=== PATIENT | female | born 1995 | race Caucasian/White ===

== ENCOUNTER → 2018-02-23 10:18 | Outpatient (CLI) | payer BC, SELFPAY ==
--- NOTE | 2018-02-23 10:18 | DT_ITS ---
This patient was seen during an EMR downtime February 18, 2018 - February 25, 2018. This patient may have a combination of paper and electronic documentation or all paper documentation. All documentation is viewable within the e-chart portion of [facility] for each patient visit.
--- NOTE | 2018-02-23 10:24 | US_ITS ---
STUDY: ULTRASOUND OF THE FEMALE PELVIS - COMPLETE REASON FOR EXAM: Female, 22 years old. Irregular menses LMP: 02/15/2018 TECHNIQUE: Transabdominal and Transvaginal TECHNICAL QUALITY: Adequate. COMPARISON: None. FINDINGS: The uterus is anteverted and is in a midline position. The uterus measures 6.0 x 3.3 x 2.8 cm. Normal uterine cervix. The endometrium measures 6.5 mm in thickness, and is hyperechoic. There is no demonstrated endometrial mass. There is no demonstrated myometrial mass. I.U.D. - The patient does not have an I.U.D. The right ovary is visualized. The right ovary measures 3.1 x 1.9 x 1.8 cm. There is no right ovarian cyst or ovarian mass. There is no visualized right adnexal mass or complex lesion. There is normal arterial and normal venous vascularity. The left ovary is visualized. The left ovary measures 3.4 x 2.8 x 2.0 cm. There is no left ovarian cyst or ovarian mass. There is no visualized left adnexal mass or complex lesion. There is normal arterial and normal venous vascularity. There is no fluid in the cul-de-sac. The pre void volume of the bladder was 436 ml. Polycystic ovary disease: No. US/Pelvic (Non ) IMPRESSION: Normal female pelvis. Electronically Signed: Aaron Arguello DO at 11:10 EDT , Service support ,
--- NOTE | 2018-02-23 10:24 | US_ITS ---
STUDY: ULTRASOUND OF THE FEMALE PELVIS - COMPLETE REASON FOR EXAM: Female, 22 years old. Irregular menses LMP: 02/15/2018 TECHNIQUE: Transabdominal and Transvaginal TECHNICAL QUALITY: Adequate. COMPARISON: None. FINDINGS: The uterus is anteverted and is in a midline position. The uterus measures 6.0 x 3.3 x 2.8 cm. Normal uterine cervix. The endometrium measures 6.5 mm in thickness, and is hyperechoic. There is no demonstrated endometrial mass. There is no demonstrated myometrial mass. I.U.D. - The patient does not have an I.U.D. The right ovary is visualized. The right ovary measures 3.1 x 1.9 x 1.8 cm. There is no right ovarian cyst or ovarian mass. There is no visualized right adnexal mass or complex lesion. There is normal arterial and normal venous vascularity. The left ovary is visualized. The left ovary measures 3.4 x 2.8 x 2.0 cm. There is no left ovarian cyst or ovarian mass. There is no visualized left adnexal mass or complex lesion. There is normal arterial and normal venous vascularity. There is no fluid in the cul-de-sac. The pre void volume of the bladder was 436 ml. Polycystic ovary disease: No. US/Transvaginal Non- IMPRESSION: Normal female pelvis. Electronically Signed: Aaron Arguello DO at 11:10 EDT , Service support ,
== END ==
PROVIDERS: Visit Provider Nurse Practitioner Women's Health
DX: N92.6 Irregular menstruation, unspecified (principal)
CPT/HCPCS: 76830; 76856; 93976

== ENCOUNTER → 2018-07-12 07:53 | Outpatient (CLI) | payer BC, SELFPAY ==
--- NOTE | 2018-07-12 08:01 | US_ITS ---
STUDY: SUPERFICIAL ULTRASOUND - LEFT AXILLARY REGION. REASON FOR EXAM: Female, 22 years old. Left axillary tenderness. TECHNIQUE: A superficial ultrasound was performed with real-time and static smith-scale imaging. COMPARISON: None. FINDINGS: There is a 1.3 cm x 1.4 cm x 0.5 cm well-defined hypoechoic nodule with a central echogenic hilum with blood flow. This suggestive of a lymph node. US/Ext Non Vasc Limited/Soft Tiss IMPRESSION: Findings suggestive of a 1.3 cm x 1.4 cm x 0.5 cm left axillary lymph node. Electronically Signed: Leo Eisenberg MD at 11:04 EDT Tel [phone], Service support ,
== END ==
PROVIDERS: PCP Registered Nurse
DX: R59.0 Localized enlarged lymph nodes (principal)
CPT/HCPCS: 76882

== ENCOUNTER → 2020-05-18 13:31 | Outpatient (CLI) | payer BC, SELFPAY ==
[2020-05-14 11:08] VITALS: BMI 28.8
--- NOTE | 2020-05-18 13:31 | BI_ITS ---
MAMMOGRAPHY - BILATERAL DIAGNOSTIC REASON FOR EXAM: Female, 24 years old. No abnormality in the right lower inner quadrant. PERTINENT HISTORY: Non-contributory. TECHNIQUE: Digital bilateral breast pedro pablo (3D mammographic acquisition) in the CC and MLO projections. 2-D mediolateral oblique (MLO) and craniocaudad (CC) views of both breasts were obtained. CAD: Full Field Digital Mammography with Computer Added Detection was performed. COMPARISON: None. Baseline examination. FINDINGS: Breast Composition: The breasts are heterogeneously dense, which may obscure small masses. There are no dominant masses or suspicious calcifications. No other significant abnormalities are identified. BI/DIAG MAMM W/CAD, BILAT IMPRESSION: Negative diagnostic mammogram. With the patient''s history of a palpable abnormality in the right breast, a targeted ultrasound examination is recommended. ASSESSMENT CATEGORY: BIRADS Category 0: Incomplete. Need additional imaging evaluation. A letter regarding these results will be sent to the patient by the facility within 30 days. Approximately 10% of breast cancers are not detected by mammography. A normal mammogram should not delay biopsy of a clinically suspicious abnormality. Electronically Signed: Leo Eisenberg, at 14:29 EDT , Service support ,
--- NOTE | 2020-05-18 13:31 | US_ITS ---
STUDY: ULTRASOUND BREAST - RIGHT REASON FOR EXAM: Female, 24 years old. Palpable lump in the right breast. TECHNIQUE: Axial and longitudinal images of the RIGHT breast were performed with a high resolution ultrasound transducer. # OF IMAGES: 43 COMPARISON: Comparison is made with prior mammogram done earlier today. FINDINGS: RIGHT Breast: Targeted ultrasound of the lower inner quadrant of the right breast was performed. Mildly dilated ducts. No solid or cystic nodule is seen. US/Breast Limited Unilateral IMPRESSION: Mildly dilated retroareolar ducts. No solid or cystic mass lesion is seen. ASSESSMENT CATEGORY: BIRADS Category 2: Benign. A letter regarding these results will be sent to the patient by the facility within 30 days. Electronically Signed: Leo Eisenberg, at 15:43 EDT , Service support ,
== END ==
PROVIDERS: PCP Registered Nurse; Referring Provider Obstetrics & Gynecology; Visit Provider Obstetrics & Gynecology
DX: N63.14 Unspecified lump in the right breast, lower inner quadrant (principal)
CPT/HCPCS: 76642; 77062; 77066; G0279

== ENCOUNTER → 2020-09-01 | Outpatient (CLI) | payer BC, SELFPAY ==
[2020-09-01 10:42] VITALS: BMI 24.5
[2020-09-03 13:05] LABS: HPV Reflexed? NOT INDICATED
== END | disposition home or self-care (01) ==
LOC: LABSPEC 12:09
PROVIDERS: PCP Registered Nurse; Referring Provider Nurse Practitioner Women's Health; Visit Provider Nurse Practitioner Women's Health
DX: Z12.4 Encounter for screening for malignant neoplasm of cervix (principal)
CPT/HCPCS: 88175; G0145

== ENCOUNTER → 2020-10-19 12:30 | Outpatient (CLI) | payer BC, SELFPAY ==
[2020-09-01 10:42] VITALS: BMI 24.5
[2020-10-19 14:13] LABS: Estradiol 43.5 pg/mL; Follicle Stimulating Hormone 4.4 mIU/mL; Thyroid Stim Hormone (TSH) 3.25 uIU/mL (0.358-3.74)
[2020-10-25 17:01] LABS: Anti-Mullerian Hormone,Serum 9.54 ng/mL (.)
== END ==
PROVIDERS: PCP Registered Nurse; Referring Provider Nurse Practitioner Women's Health; Visit Provider Nurse Practitioner Women's Health
DX: Z13.29 Encounter for screening for other suspected endocrine disorder (principal); N97.0 Female infertility associated with anovulation
CPT/HCPCS: 36415; 82670; 83001; 83516; 84443

== ENCOUNTER → 2020-11-06 09:49 | Outpatient (CLI) | payer BC, SELFPAY ==
[2020-09-01 10:42] VITALS: BMI 24.5
[2020-11-08 09:04] LABS: Progesterone Level 0.41 ng/mL (See Comment)
== END ==
PROVIDERS: PCP Registered Nurse; Referring Provider Nurse Practitioner Women's Health; Visit Provider Nurse Practitioner Women's Health
DX: N92.6 Irregular menstruation, unspecified (principal)
CPT/HCPCS: 36415; 84144

== ENCOUNTER → 2020-12-22 08:38 | Outpatient (CLI) | payer BC, SELFPAY ==
[2020-09-01 10:42] VITALS: BMI 24.5
[2020-12-22 10:02] LABS: Progesterone Level 28.11 ng/mL (See Comment)
== END ==
PROVIDERS: PCP Registered Nurse; Referring Provider Nurse Practitioner Women's Health; Visit Provider Nurse Practitioner Women's Health
DX: N92.6 Irregular menstruation, unspecified (principal)
CPT/HCPCS: 36415; 84144

== ENCOUNTER → 2021-05-03 12:27 | Outpatient (CLI) | payer BC, SELFPAY ==
[2021-01-26 17:34] VITALS: BMI 28.8
[2021-05-03 13:53] LABS: Progesterone Level 0.67 ng/mL (See Comment)
== END ==
PROVIDERS: PCP Registered Nurse; Referring Provider Nurse Practitioner Women's Health; Visit Provider Nurse Practitioner Women's Health
DX: N92.6 Irregular menstruation, unspecified (principal)
CPT/HCPCS: 36415; 84144

== ENCOUNTER → 2021-06-10 10:32 | Outpatient (CLI) | payer BC, SELFPAY ==
[2021-06-10 11:04] LABS: Erythrocyte Sedimentation Rate 6 mm/hr (0-30)
[2021-06-10 11:06] LABS: Absolute Lymphocyte Count 3.72 X10^3/uL (0.83-4.51); Absolute Neutrophil Count 3.6 X10^3/uL (2.0-7.7); Basophil# 0.05 X10^3/uL; Basophil% 0.6 % (0-1); Eosinophil# 0.09 X10^3/uL; Eosinophils% 1.2 % (0-5); Hematocrit 41.2 % (37-47); Hemoglobin 13.8 g/dL (12.0-15.0); Lymphocyte # 3.72 X10^3/ul (0.83-4.51); Lymphocyte % 47.6 % (19-41); Mean Corp Hgb Conc 33.5 g/dL (32-36); Mean Corpuscular Hgb 30.9 pg (27.0-32.0); Mean Corpuscular Volume 92.4 fL (81-99); Mean Platelet Vol. 8.8 fl (6.2-12.0); Monocyte# 0.39 X10^3/uL; NRBC Flagged by Analyzer 0 % (0-5); Neutrophil # 3.55 X10^3/uL (2.7-7.7); Neutrophil % 45.3 % (47-70); Platelet Count 292 K/mm3 (150-450); RBC Distribution Width CV 11.9 % (11.6-14.6); RBC Distribution Width SD 40.5 fl (35.1-43.9); Red Blood Count 4.46 M/mm3 (4.2-5.4); White Blood Count 7.8 K/mm3 (4.4-11.0)
[2021-06-10 11:46] LABS: Syphilis Antibodies Non-reactive; Vitamin B12 789 pg/mL (211-911); Vitamin D,25 Hydroxy 48.7 ng/mL
[2021-06-10 12:09] LABS: AST(SGOT) 15 U/L (15-37); Alanine Aminotransfer ALT/SGPT 18 U/L (13-56); Albumin, Serum 3.8 g/dL (3.2-5.0); Alkaline Phosphatase 43 U/L (45-117); Anion Gap 4 (5-15); BUN 16 mg/dL (7-18); BUN/Creat Ratio 20.5 RATIO (10-20); CRP < 2.90 mg/L (0.0-3.0); Calcium,Total 8.8 mg/dL (8.5-10.1); Chloride 108 mmol/L (98-107); Creatinine, Serum 0.78 mg/dL (0.55-1.02); EST Glomerular Filtration Rate 95 mL/min (>60); Est Glom Filt Rate - Afr Amer 114 mL/min (>60); Ferritin 89 ng/mL (8-252); Free T3 2.6 pg/mL (2.18-3.98); Globulin 3.9 g/dL (2.2-4.2); Glucose 83 mg/dL (74-106); Iron 116 ug/dL (50-170); Iron Binding Capacity,Total 273 ug/dL (250-450); PERCENT IRON SATURATION 42.5 % (15.0-55.0); Potassium 3.9 mmol/L (3.5-5.1); Protein, Total 7.7 g/dL (6.4-8.2); Sodium Level 139 mmol/L (136-145); Thyroid Stim Hormone (TSH) 1.77 uIU/mL (0.358-3.74)
[2021-06-12 10:34] LABS: Transferrin 227 mg/dL (192-364)
[2021-06-13 16:49] LABS: ANTINUCLEAR ANTIBODIES DIRECT Negative (Negative)
== END ==
PROVIDERS: PCP Registered Nurse; Visit Provider Registered Nurse
DX: R23.3 Spontaneous ecchymoses (principal); R53.83 Other fatigue; R41.89 Other symptoms and signs involving cognitive functions and awareness; M79.10 Myalgia, unspecified site
CPT/HCPCS: 80053; 82306; 82607; 82728; 82746; 83540; 83550; 84439; 84443; 84466; 84481; 85025; 85652; 86038; 86140; 86780

== ENCOUNTER → 2021-06-13 17:26 | Outpatient (CLI) | payer BC, SELFPAY | PROVIDERS: PCP Registered Nurse; Referring Provider Registered Nurse; Visit Provider Registered Nurse | DX: Z13.0 Encounter for screening for diseases of the blood and blood-forming organs and certain disorders involving the immune mechanism (principal); Z83.2 Family history of diseases of the blood and blood-forming organs and certain disorders involving the immune mechanism | CPT/HCPCS: 36415; 81241 ==

== ENCOUNTER → 2021-09-05 13:25 | Outpatient (CLI) | payer BC, SELFPAY ==
[2021-09-05 14:12] LABS: Progesterone Level 0.77 ng/mL (See Comment)
== END ==
PROVIDERS: PCP Registered Nurse; Visit Provider Nurse Practitioner Women's Health
DX: N92.6 Irregular menstruation, unspecified (principal)
CPT/HCPCS: 36415; 84144

== ENCOUNTER 2021-12-26 06:56 | Outpatient (CLI) | payer BC, SELFPAY ==
[2021-12-26 07:52] LABS: Glucose 75GTT - Fasting 93 mg/dL (70-99)
[2021-12-26 08:12] LABS: Cholesterol 208 mg/dL (200); High Density Lipoprotein 56 mg/dL; Prolactin 25.1 ng/mL; Thyroid Stim Hormone (TSH) 3.13 uIU/mL (0.358-3.74); Triglycerides 89 mg/dL; Very Low Density Lipoprotein 18 mg/dL (5-40)
[2021-12-26 09:19] LABS: Glucose 75GTT - 60 minutes 68 mg/dL (100-160)
[2021-12-26 09:22] LABS: HIV - WCH Non-Reactive (Nonreactive); Hepatitis B Surface Antigen Non-Reactive (Nonreactive); Hepatitis C Antibody Non-Reactive (Nonreactive); Rubella IgG Reactive (Nonreactive); Syphilis Antibodies Non-reactive
[2021-12-26 09:27] LABS: Glucose 75GTT - 30 minutes 142 mg/dL (100-160)
[2021-12-26 09:44] LABS: Glucose 75GTT - 120 minutes 62 mg/dL (70-140)
[2021-12-26 12:27] LABS: Chlamydia Trachomatis by PCR Negative (Negative); Neisserai gonorrhoeae by PCR Negative (Negative); Probe Check PASS; Sample Adequacy Control PASS; Specimen Processing Control PASS
[2021-12-27 15:28] LABS: V-Zoster IgG (Immunity) 449 index (Immune >165)
[2022-01-01 15:51] LABS: 17-Hydroxyprogesterone 64 ng/dL (.)
== END 2021-12-26 23:59 | disposition home or self-care (01) ==
LOC: LAB 06:56
PROVIDERS: PCP Registered Nurse; Visit Provider Obstetrics & Gynecology Reproductive Endocrinology
DX: Z01.83 Encounter for blood typing (principal); Z11.3 Encounter for screening for infections with a predominantly sexual mode of transmission; Z11.59 Encounter for screening for other viral diseases; Z11.8 Encounter for screening for other infectious and parasitic diseases; Z13.228 Encounter for screening for other metabolic disorders; E16.8 Other specified disorders of pancreatic internal secretion; E02 Subclinical iodine-deficiency hypothyroidism
CPT/HCPCS: 36415; 80061; 82627; 82951; 82952; 83498; 84146; 84403; 84443; 86703; 86762; 86780; 86787; 86803; 86850; 86900; 86901; 87340; 87491; 87591; 82626

== ENCOUNTER → 2022-01-05 | Outpatient (CLI) | payer BC, SELFPAY ==
[2022-01-05 13:20] LABS: T4 Free Direct 1.04 ng/dL (0.76-1.46); Thyroid Stim Hormone (TSH) 2.08 uIU/mL (0.358-3.74)
[2022-01-09 22:06] LABS: Thyroid Peroxidase AB < 8 IU/mL (0-34)
[2022-01-09 22:11] LABS: Thyroglobulin Antibody < 1.0 IU/mL (0.0-0.9)
== END | disposition home or self-care (01) ==
LOC: LAB 12:21
PROVIDERS: PCP Registered Nurse; Referring Provider Obstetrics & Gynecology Reproductive Endocrinology; Visit Provider Obstetrics & Gynecology Reproductive Endocrinology
DX: E02 Subclinical iodine-deficiency hypothyroidism (principal)
CPT/HCPCS: 36415; 84439; 84443; 86376; 86800

== ENCOUNTER → 2022-07-03 | Outpatient (CLI) | payer BC, SELFPAY ==
[2022-07-03 14:28] LABS: hCG Titer Quant., Serum < 1 mIU/mL (1-3)
== END | disposition home or self-care (01) ==
LOC: LAB 13:46
PROVIDERS: PCP Registered Nurse; Visit Provider Nurse Practitioner Women's Health
DX: N92.6 Irregular menstruation, unspecified (principal)
CPT/HCPCS: 36415; 84702

== ENCOUNTER → 2022-11-06 | Outpatient (CLI) | payer BC, SELFPAY ==
[2022-11-06 15:04] LABS: hCG Titer Quant., Serum < 1 mIU/mL (1-3)
== END | disposition home or self-care (01) ==
PROVIDERS: PCP Registered Nurse; Referring Provider Nurse Practitioner Women's Health; Visit Provider Nurse Practitioner Women's Health
DX: N91.2 Amenorrhea, unspecified (principal)
CPT/HCPCS: 36415; 84702

== ENCOUNTER → 2023-12-31 | Outpatient (CLI) | payer BC, SELFPAY | END | disposition home or self-care (01) | LOC: LAB.FUTURE 14:14 | PROVIDERS: PCP Registered Nurse; Referring Provider Registered Nurse; Visit Provider Registered Nurse | DX: B00.1 Herpesviral vesicular dermatitis (principal); F33.1 Major depressive disorder, recurrent, moderate; F41.9 Anxiety disorder, unspecified; K58.2 Mixed irritable bowel syndrome; Z13.1 Encounter for screening for diabetes mellitus; Z13.220 Encounter for screening for lipoid disorders ==

== ENCOUNTER → 2024-01-10 | Outpatient (CLI) | payer BC, SELFPAY ==
[2024-01-15 19:45] LABS: HPV Reflexed? NOT INDICATED
== END | disposition home or self-care (01) ==
PROVIDERS: PCP Registered Nurse; Visit Provider Nurse Practitioner Women's Health
DX: Z12.4 Encounter for screening for malignant neoplasm of cervix (principal)
CPT/HCPCS: 88175; G0145

== ENCOUNTER → 2024-08-18 | Outpatient (CLI) | payer BC, SELFPAY ==
--- NOTE | 2024-08-18 11:00 | US_ITS ---
EXAM: US Abdomen Limited (quadrant) HISTORY: LEFET UPPER QUADANT ABDOMINAL PAIN COMPARISON: None FINDINGS: Limited sonographic evaluation of the left upper quadrant shows a normal-appearing spleen measuring 9.6 cm. 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 Left kidney is free of obstructive uropathy, measuring 10.8 cm. US/Abdomen Limited IMPRESSION: Sonographically normal spleen and left kidney Electronically Signed: Gerry Coates MD at 12:36 EST ,
== END | disposition home or self-care (01) ==
PROVIDERS: PCP Registered Nurse; Referring Provider Nurse Practitioner Family; Visit Provider Nurse Practitioner Family
DX: R10.12 Left upper quadrant pain (principal)
CPT/HCPCS: 76705

== ENCOUNTER → 2024-11-12 | Outpatient (CLI) | payer BC, SELFPAY ==
[2024-11-12 17:48] LABS: hCG Titer Quant., Serum < 1 mIU/mL (<9 non-preg)
== END | disposition home or self-care (01) ==
PROVIDERS: PCP Registered Nurse; Referring Provider Nurse Practitioner Women's Health; Visit Provider Nurse Practitioner Women's Health
DX: N91.2 Amenorrhea, unspecified (principal)
CPT/HCPCS: 36415; 84702

== ENCOUNTER → 2024-12-01 | Outpatient (CLI) | payer BC, SELFPAY ==
[2024-12-01 18:04] LABS: Hematocrit 42.5 % (37-47); Hemoglobin 14.3 g/dL (12.0-15.0); Mean Corp Hgb Conc 33.6 g/dL (32-36); Mean Corpuscular Hgb 30.4 pg (27.0-32.0); Mean Corpuscular Volume 90.4 fL (81-99); Mean Platelet Vol. 8.6 fl (6.2-12.0); Platelet Count 341 K/mm3 (150-450); RBC Distribution Width CV 12.3 % (11.6-14.6); RBC Distribution Width SD 40.4 fl (35.1-43.9); White Blood Count 8.8 K/mm3 (4.4-11.0)
[2024-12-01 21:41] LABS: ALB/GLOB Ratio 1.5 RATIO (0.9-2.4); AST(SGOT) 23 U/L (<=31); Alanine Aminotransfer ALT/SGPT 18 U/L (<=34); Albumin, Serum 4.8 g/dL (3.5-5.0); Alkaline Phosphatase 55 U/L (35-104); Anion Gap 15 (5-15); BUN 12 mg/dL (4-19); BUN/Creat Ratio 13.7 RATIO (10-20); Calcium,Total 9.6 mg/dL (7.6-11.0); Carbon Dioxide 21.8 mmol/L (21.0-32.0); Chloride 102 mmol/L (98-108); Cholesterol 213 mg/dL (<=200); Creatinine, Serum 0.89 mg/dL (0.70-1.20); EST Glomerular Filtration Rate 89 (>60); Globulin 3.1 g/dL (2.2-4.2); Glucose 87 mg/dL (70-99); High Density Lipoprotein 54 mg/dL; Low Density Lipoprotein Calc. 144 mg/dL; Potassium 4.3 mmol/L (3.3-5.1); Protein, Total 7.9 g/dL (5.9-8.4); Sodium Level 139 mmol/L (133-145); Total Bilirubin 0.66 mg/dL (0.00-1.30); Triglycerides 78 mg/dL; Very Low Density Lipoprotein 16 mg/dL (5-40); cholesterol:hdl ratio screen 3.97
== END | disposition home or self-care (01) ==
LOC: LAB 17:38
PROVIDERS: PCP Registered Nurse; Referring Provider Registered Nurse; Visit Provider Registered Nurse
DX: Z13.220 Encounter for screening for lipoid disorders (principal); Z13.1 Encounter for screening for diabetes mellitus; Z13.0 Encounter for screening for diseases of the blood and blood-forming organs and certain disorders involving the immune mechanism; B00.1 Herpesviral vesicular dermatitis; F41.9 Anxiety disorder, unspecified; F32.A Depression, unspecified; K58.2 Mixed irritable bowel syndrome; J45.990 Exercise induced bronchospasm
CPT/HCPCS: 36415; 80053; 80061; 85027

== ENCOUNTER → 2025-01-28 | Outpatient (CLI) | payer BC, SELFPAY ==
--- NOTE | 2025-01-28 09:01 | US_ITS ---
PROCEDURE: PELVIC W/ TRANSVAGINAL 01/28/2025 REASON FOR EXAM: PAIN TECHNIQUE: Transabdominal and transvaginal pelvic ultrasound FINDINGS: Transabdominal and transvaginal imaging. The uterus measures 9.4 x 5.1 x 3.6 cm and appears within limits. Homogeneous trilaminar appearing endometrium appears prominent at 1.5 cm, correlate with menstrual cycle. Cervix appears within limits. Right ovary measures 4.5 x 2.6 x 2.5 cm and appears within limits. Left ovary measures 2.9 x 2.9 x 1.8 cm and appears within limits containing small follicles. No evidence of adnexal mass. Evidence of bilateral vascular ovarian flow is seen. No free fluid. Bladder volume 85 cc. US/Pelvic w/ Transvaginal IMPRESSION: Homogeneous trilaminar appearing endometrium appears prominent at 1.5 cm, corre late with menstrual cycle. Reading Location: [id number]
== END | disposition home or self-care (01) ==
LOC: OPUS 09:00
PROVIDERS: PCP Registered Nurse; Referring Provider Nurse Practitioner Women's Health; Visit Provider Nurse Practitioner Women's Health
DX: R10.2 Pelvic and perineal pain (principal)
CPT/HCPCS: 76830; 76856

== ENCOUNTER 2025-04-30 11:44 | Emergency (ER) | payer BC, SELFPAY ==
[2025-04-30 11:45] VITALS: BP 144/104; PULSE 107; RESP 18; TEMP 36.6; O2SAT 100; BMI 27.8
--- NOTE | 2025-04-30 11:59 | EDS_ITS ---
HPI <HOSEA Mi - Last Filed: 04/30/25 17:18> History of Present Illness Chief Complaint: Chest Pain Narrative Narrative: 29-year-old female with no significant past medical history presents with chest pain. She works at [employer] and states around 10 AM she was at work and developed tightness in the center of her chest. The pain is around 3 out of 10 and is unchanging. She also feels slightly short of breath. No nausea, vomiting, or diaphoresis. No jaw or upper extremity pain. No history of similar symptoms. She has no personal history of CAD or DVT/PE. She states she has a strong paternal history of [place] in her dad and grandfather. She reports driving to [place] a little less than a month ago. No leg pain or swelling. She does not smoke. [facility] <HOSEA Mi - Last Filed: 04/30/25 17:18> [facility] Medical History COVID-19 Migraines Asthma Home Medications ?Medication ?Instructions ?Recorded ?Last Taken ?Type valacyclovir 1 gram tablet PO PRN 3 days #12 tabs 12/0 01/03 Unknown History albuterol sulfate 90 mcg/actuation 1 inh inhalation ON CE 05/14/20 Unknown History aerosol inhaler (ProAir HFA) docosahexaenoic acid 200 mg mg PO 09/01/20 Unknown His tory capsule ( DHA) Allergy/AdvReac Type Severity Reaction Status Date / Time No Known Allergies Allergy Verified 04/30/25 11:47 Family History Grandmother Cancer ovarian cancer - paternal grandmother Grandfather Myocardial infarction Father Myocardial infarction Grandfather Diabetes Social History Smoking Status: Never smoker alcohol intake: current Alcohol type: wine substance use type: does not use caffeine: Yes what type of physical activity do you participate in: none seatbelt use: always do you feel safe at home: Yes 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 CVS: Positive for chest pain. No palpitations or syncope. Respiratory: Negative for cough. GI: Negative for abdominal pain, nausea, vomiting. EXAM <HOSEA Mi - Last Filed: 04/30/25 17:18> Physical Exam Narrative Exam Narrative: CONST: Patient sitting in no acute distress. EYES: Normal inspection. NECK: Normal inspection. RESP: No respiratory distress, CTAB. CVS: Regular rate and rhythm, no murmur, no gallop. ABD: Soft and nontender, no guarding or rebound, nondistended. SKIN: Color normal, no rash, warm, dry, intact. EXTREMITIES: Normal appearance, no pedal edema. NEURO: Alert and answering questions appropriately. PSYCH: Normal affect. Const Vital Signs: 04/30/25 11:45 04/30/25 12:44 04/30/25 13:00 Temperature 98 F Temperature Source Oral Pulse Rate 107 H 76 76 Respiratory Rate 18 14 14 Respiratory Effort Blood Pressure 144/104 H 127/87 H 127/87 H Blood Pressure Mean 117 100 100 Pulse Ox 100 100 100 Oxygen Delivery Method Room Air 04/30/25 13:13 04/30/25 14:00 04/30/25 15:00 Temperature Temperature Source Pulse Rate 81 71 Respiratory Rate Respiratory Effort Normal Non-Labored Blood Pressure 108/84 H 115/87 H Blood Pressure Mean 92 96 Pulse Ox 99 100 Oxygen Delivery Method Room Air Room Air 04/30/25 15:15 Temperature 98 F Temperature Source Pulse Rate 71 Respiratory Rate 14 Respiratory Effort Blood Pressure 115/87 H Blood Pressure Mean 96 Pulse Ox 100 Oxygen Delivery Method <Dr. Doug Abrams MD - Last Filed: 05/01/25 07:14> Physical Exam Const Vital Signs: 04/30/25 11:45 04/30/25 12:44 04/30/25 13:00 Temperature 98 F Temperature Source Oral Pulse Rate 107 H 76 76 Respiratory Rate 18 14 14 Respiratory Effort Blood Pressure 144/104 H 127/87 H 127/87 H Blood Pressure Mean 117 100 100 Pulse Ox 100 100 100 Oxygen Delivery Method Room Air 04/30/25 13:13 04/30/25 14:00 04/30/25 15:00 Temperature Temperature Source Pulse Rate 81 71 Respiratory Rate Respiratory Effort Normal Non-Labored Blood Pressure 108/84 H 115/87 H Blood Pressure Mean 92 96 Pulse Ox 99 100 Oxygen Delivery Method Room Air Room Air 04/30/25 15:15 Temperature 98 F Temperature Source Pulse Rate 71 Respiratory Rate 14 Respiratory Effort Blood Pressure 115/87 H Blood Pressure Mean 96 Pulse Ox 100 Oxygen Delivery Method <HOSEA Mi - Last Filed: 04/30/25 17:18> Heart Score History: Slightly/Non-Suspicious ECG: Normal Age: </= 45 years Risk Factors: 1 or 2 Risk Factors Troponin: </= Normal Limit Score: 1 <Dr. Doug Abrams MD - Last Filed: 05/01/25 07:14> Heart Score Score: 1 MDM <HOSEA Mi - Last Filed: 04/30/25 17:18> MDM MDM Narrative Medical decision making narrative: 29-year-old female developed midsternal chest tightness at work this morning. It is mild but constant. She is awake alert no distress. Vitals are stable with slight tachycardia at 107 bpm. Normal cardiopulmonary exam. She has no tenderness over the chest wall or abdomen. Moving all extremities and neurovascularly intact. EKG is sinus rhythm without ischemic changes and troponin x 2 negative. Basic labs unremarkable. Since she had recent travel to [place] D-dimer was ordered and is elevated but follow-up CTA shows no acute findings. I am not sure the etiology of her symptoms but she is low risk with heart score of 1. I recommended follow-up with her PCP or return if symptoms worsen. She was discharged in stable condition. I have personally performed a face to face assessment of the patient and have reviewed the GIOVANNY Note. I performed a substantive portion of the visit including all aspects of the following. My rocha findings include: History is remarkable for patient being foggy. When asked what she means by vineet feels like her head is swimming. It appears to be positional. She also complains of lightheadedness. She and her have been trying to get . She performed a test 2 weeks ago which was negative. She presented because of chest pain and shortness of breath. She had a recent long distance trip. She denies leg pain, swelling discoloration. She denies black or maroon-colored stool. She denies fever, chills night sweats. She has had no weight gain or weight loss. She has had no constipation or diarrhea. She has no intolerance to heat or cold. She does endorse frequent urination. There is a strong family history of diabetes. Exam is remarked for an elevated blood pressure and heart rate. HEENT is grossly unremarkable. Lungs are clear station. Heart is regular. Rate is normal. There is no murmur, gallop or rub. Abdomen is soft nontender. There is no palpable skull mass. Lower extremity exam reveals no abnormality. There is no asymmetry, swelling, discoloration, leg vein distention, palpable cords or tenderness along the distribution of the deep venous system. Medical Decision Making will obtain D-dimer since patient is not PERC negative. If D-dimer is positive she will need a CTA. With her having family history of diabetes frequent urination will obtain BGT to assess glucose. Will obtain test to rule out . Troponin was obtained since her family history of coronary disease. Other additions or changes: [None] History & Record Review Discussion w/independent historian: Patient Lab Data Attestation: I reviewed the patient's lab results. Labs: Laboratory Results - last 24 hr 04/30/25 04/30/25 12:37 14:20 WBC 10.5 RBC 5.04 Hgb 15.3 H Hct 45.6 MCV 90.5 MCH 30.4 MCHC 33.6 RDW Std Deviation 41.8 RDW Coeff of Joy 12.6 Plt Count 383 MPV 8.5 Immature Gran % (Auto) 0.400 Neut % (Auto) 62.7 Lymph % (Auto) 32.4 Baldwin % (Auto) 3.6 Eos % (Auto) 0.4 Baso % (Auto) 0.5 Absolute Neuts (auto) 6.6 Absolute Lymphs (auto) 3.41 Nucleated RBC % 0 D-Dimer Quant (PE/DVT) 1.07 H* Sodium 141 Potassium 4.2 Chloride 103 Carbon Dioxide 23.2 Anion Gap 14 BUN 13 Creatinine 0.92 Estim Creat Clear Calc 81.36 Est GFR (MDRD) Non-Af 86 BUN/Creatinine Ratio 13.8 Glucose 81 Calcium 9.8 Troponin T High Sens < 6 Troponin T Hi Sens 2 Hr < 6 Serum , Qual NEGATIVE Radiography Diagnostic Testing: Clinical Impression(s) from Imaging Studies Chest X-Ray 04/30/25 12:45 IMPRESSION: NEGATIVE CHEST Reading Location: [facility] Chest CTA 04/30/25 13:23 IMPRESSION: No acute or chronic pulmonary embolus. No acute aortic syndrome Reading Location: [id number] ED attending interpretation of two-view chest x-ray shows normal heart size, no acute infiltrate, edema, or effusion. EKG Initial EKG: Attestation: I personally reviewed and interpreted this EKG as follows: Interpretation: No Acute Injury Pattern and Sinus Arrythmia Comments: Normal sinus rhythm with sinus arrhythmia at 95 bpm Normal intervals, no acute ischemic changes <Dr. Doug Abrams MD - Last Filed: 05/01/25 07:14> [facility] MDM Narrative Medical decision making narrative: I have personally performed a face to face assessment of the patient and have reviewed the GIOVANNY Note. I performed a substantive portion of the visit including all aspects of the following. My rocha findings include: History is remarkable for patient being foggy. When asked what she means by vineet feels like her head is swimming. It appears to be positional. She also complains of lightheadedness. She and her have been trying to get . She performed a test 2 weeks ago which was negative. She presented because of chest pain and shortness of breath. She had a recent long distance trip. She denies leg pain, swelling discoloration. She denies black or maroon-colored stool. She denies fever, chills night sweats. She has had no weight gain or weight loss. She has had no constipation or diarrhea. She has no intolerance to heat or cold. She does endorse frequent urination. There is a strong family history of diabetes. Exam is remarked for an elevated blood pressure and heart rate. HEENT is grossly unremarkable. Lungs are clear station. Heart is regular. Rate is normal. There is no murmur, gallop or rub. Abdomen is soft nontender. There is no palpable skull mass. Lower extremity exam reveals no abnormality. There is no asymmetry, swelling, discoloration, leg vein distention, palpable cords or tenderness along the distribution of the deep venous system. Medical Decision Making will obtain D-dimer since patient is not PERC negative. If D-dimer is positive she will need a CTA. With her having family history of diabetes frequent urination will obtain BGT to assess glucose. Will obtain test to rule out . Troponin was obtained since her family history of coronary disease. Other additions or changes: [None] Lab Data Labs: Laboratory Results - last 24 hr 04/30/25 04/30/25 12:37 14:20 WBC 10.5 RBC 5.04 Hgb 15.3 H Hct 45.6 MCV 90.5 MCH 30.4 MCHC 33.6 RDW Std Deviation 41.8 RDW Coeff of Joy 12.6 Plt Count 383 MPV 8.5 Immature Gran % (Auto) 0.400 Neut % (Auto) 62.7 Lymph % (Auto) 32.4 Baldwin % (Auto) 3.6 Eos % (Auto) 0.4 Baso % (Auto) 0.5 Absolute Neuts (auto) 6.6 Absolute Lymphs (auto) 3.41 Nucleated RBC % 0 D-Dimer Quant (PE/DVT) 1.07 H* Sodium 141 Potassium 4.2 Chloride 103 Carbon Dioxide 23.2 Anion Gap 14 BUN 13 Creatinine 0.92 Estim Creat Clear Calc 81.36 Est GFR (MDRD) Non-Af 86 BUN/Creatinine Ratio 13.8 Glucose 81 Calcium 9.8 Troponin T High Sens < 6 Troponin T Hi Sens 2 Hr < 6 Serum , Qual NEGATIVE Radiography Diagnostic Testing: Clinical Impression(s) from Imaging Studies Chest X-Ray 04/30/25 12:45 IMPRESSION: NEGATIVE CHEST Reading Location: [facility] Chest CTA 04/30/25 13:23 IMPRESSION: No acute or chronic pulmonary embolus. No acute aortic syndrome Reading Location: [id number] Discharge Plan Triage Chief Complaint: Chest Pain ED Midlevel Provider: Roma Ceja ED Provider: Doug Abrams Dx/Rx/DC Orders Clinical Impression: Chest pain, Elevated d-dimer, Sinus tachycardia seen on potline monitor Instructions: ED Chest Pain, Noncardiac Prescriptions: No Action valacyclovir 1 gram tablet PO PRN3 Days Qty: 12 albuterol sulfate [ProAir HFA] 90 mcg/actuation HFA aerosol inhaler 1 inh INHALATION ONCE DHA 200 mg capsule PO Primary Care Provider: Phoebe Eastman NP Referrals: Phoebe Eastman NP, IT SENIOR ANALYST-C [Primary Care Provider] - Activity Restrictions/Additional Instructions: I am not sure what is causing your chest pain. Your testing is normal and rule out heart attacks or blood clots. I recommend you follow-up with your primary care doctor. If you have new or worsening symptoms come back to the ER. Print Language: Italian Disposition Disposition: Home, Self Care Discharge Date/Time: 04/30/25 15:19
[2025-04-30 12:44] VITALS: BP 127/87; PULSE 76; RESP 14; O2SAT 100
--- NOTE | 2025-04-30 12:45 | RAD_ITS ---
PROCEDURE: CHEST PA AND LATERAL 04/30/2025 REASON FOR EXAM: CHEST PAIN TECHNIQUE: CHEST PA AND LATERAL COMPARISON: None FINDINGS: Hardware: EKG electrodes are seen. Heart: The heart size is normal. Mediastinum: The mediastinal contour is unremarkable. Lungs: The lungs are clear. Bones: The bones are unremarkable. RAD/Chest PA and Lateral IMPRESSION: NEGATIVE CHEST Reading Location: [facility]
[2025-04-30 12:47] LABS: Hematocrit 45.6 % (37-47); Hemoglobin 15.3 g/dL (12.0-15.0); Immature Granulocytes Count 0.040 X10^3/uL (0.0-0.0); Mean Corp Hgb Conc 33.6 g/dL (32-36); Mean Corpuscular Volume 90.5 fL (81-99); Mean Platelet Vol. 8.5 fl (6.2-12.0); NRBC Flagged by Analyzer 0 % (0-5); Platelet Count 383 K/mm3 (150-450); RBC Distribution Width CV 12.6 % (11.6-14.6); RBC Distribution Width SD 41.8 fl (35.1-43.9); Red Blood Count 5.04 M/mm3 (4.2-5.4); White Blood Count 10.5 K/mm3 (4.4-11.0)
[2025-04-30 13:00] VITALS: BP 127/87; PULSE 76; RESP 14; O2SAT 100
[2025-04-30 13:12] LABS: D-Dimer Quantitative (DVT/PE) 1.07 FEU/ug/m (0.27-0.49)
[2025-04-30 13:22] LABS: Internal QC Validated? YES +Cl - CLEAR BKGD; Pregnancy, Serum, hCG Quali. NEGATIVE Negative; Record Kit Lot#, Serum Preg. 962302
--- NOTE | 2025-04-30 13:23 | CT_ITS ---
PROCEDURE: CTA CHEST W/WO CONTRAST 04/30/2025 REASON FOR EXAM: CHEST PAIN TO RULE OUT PE TECHNIQUE: CTA CHEST W/WO CONTRAST Multiplanar Sagittal and Coronal images were obtained. 3D post processing was performed CONTRAST: Isovue 370 VOLUME: 99 mL One or more dose reduction techniques were used (e.g., Automated exposure control, adjustment of the mA and/or kV according to patient size, use of iterative reconstruction technique). RADIATION DOSE SUMMARY: CTDlvol: 13 mGy DLP: 362 mGycm COMPARISON: April 30, 2025 # of known CTs in the past 12 months: 0 # of known Cardiac Nuclear Medicine Studies in the past 12 months: 0 FINDINGS: Thoracic Aorta: No evidence of aortic dissection or rupture. No aneurysm. Heart: Normal size. No pericardial effusion. Pulmonary Vessels: The timing and quality of the contrast bolus is diagnostic. There is no evidence of acute or chronic pulmonary embolus. Hardware: Unremarkable Lymph nodes: None appear enlarged. Lungs and Airways: Respiratory motion artifact. No consolidation, mass or worrisome nodule. Pleura: No pleural effusion or pneumothorax. Upper Abdomen: Normal Bones: Straightening of the thoracic kyphosis. CT/CTA Chest W/WO Contrast IMPRESSION: No acute or chronic pulmonary embolus. No acute aortic syndrome Reading Location: [id number]
[2025-04-30 13:30] LABS: Anion Gap 14 (5-15); BUN 13 mg/dL (4-19); BUN/Creat Ratio 13.8 RATIO (10-20); Calcium,Total 9.8 mg/dL (7.6-11.0); Carbon Dioxide 23.2 mmol/L (21.0-32.0); Chloride 103 mmol/L (98-108); Estimated Creatinine Clearance 81.36 ml/min (50-250); Glucose 81 mg/dL (70-99); Potassium 4.2 mmol/L (3.3-5.1); Troponin T High Sensitivity < 6 ng/L (<=14)
[2025-04-30 14:00] VITALS: BP 108/84; PULSE 81; O2SAT 99
[2025-04-30 15:00] VITALS: BP 115/87; PULSE 71; O2SAT 100
[2025-04-30 15:02] LABS: Troponin T High Sens 2 HR < 6 ng/L (<=14)
[2025-04-30 15:15] VITALS: BP 115/87; PULSE 71; RESP 14; TEMP 36.6; O2SAT 100
== END 2025-04-30 15:19 | disposition home or self-care (01) ==
PROVIDERS: Physician Assistant; Emergency Provider Emergency Medicine; PCP Registered Nurse; Referring Provider Emergency Medicine; Visit Provider Emergency Medicine
DX: R07.9 Chest pain, unspecified (principal); R79.89 Other specified abnormal findings of blood chemistry; R00.0 Tachycardia, unspecified
CPT/HCPCS: 71046; 71275; 80048; 84484; 84703; 85025; 85379; 93005; 99282; Q9967; A4216

== ENCOUNTER → 2025-06-06 | Outpatient (CLI) | payer BC, SELFPAY ==
--- OUTSIDE RECORDS SUMMARY | 2025-06-06 08:31 | XMS RPT_ITS | CCD ---
Author Organization [facility] Care Team Providers Care Color Television Console Monitor Name Role Phone PROVIDER, UNKNOWN Unavailable Unavailable PROVIDER, UNKNOWN Unavailable Unavailable PROVIDER, UNKNOWN Unavailable Unavailable Mark Nuñez Unavailable Unavailable PROVIDER, UNKNOWN Unavailable Unavailable PROVIDER, UNKNOWN Unavailable Unavailable Jaren REGISTRY NURSE, REGISTRY NURSE-C Rachana Primary Care Provider Jaren REGISTRY NURSE, REGISTRY NURSE-C Rachana Referring Provider [phone] Nilson REGISTRY NURSE, REGISTRY NURSE-C Kathrin Attending Provider Dr. Mike Ortiz Attending Provider Jaren REGISTRY NURSE, REGISTRY NURSE-C Rachana Primary Care Provider [phone] Jaren REGISTRY NURSE, REGISTRY NURSE-C Rachana Referring Provider [phone] HOSEA Jiang Attending Provider Mariano AVILES, Mark Evans Primary Care Provider Mariano AVILES, Mark Evans Primary Care Provider Jaren REGISTRY NURSE, REGISTRY NURSE-C Rachana Primary Care Provider Jaren REGISTRY NURSE, REGISTRY NURSE-C Rachana Referring Provider Nilson REGISTRY NURSE, REGISTRY NURSE-C Kathrin Attending Provider [phone] Jaren REGISTRY NURSE-C, Rachana Primary Care Provider Bridbrandeeal REGISTRY NURSE-C, Deyanira Attending Provider [phone] Samiral REGISTRY NURSE-C, Deyanira Referring Provider [phone] Nilson REGISTRY NURSE-C, Kathrin Attending Provider Nilson REGISTRY NURSE-C, Kathrin Referring Provider Jaren REGISTRY NURSE-C, Rachana Attending Provider Jaren REGISTRY NURSE-C, Rachana Referring Provider [phone] BRIDENTHAL, DEYANIRA Attending Unavailable MARIANOMARK TELLEZ Primary Care Unavailable JAREN, RACHANA Attending Unavailable MARIANO MARK Primary Care Unavailable Jaren REGISTRY NURSE-C, [place] Primary Care Provider Jaren REGISTRY NURSE-C, Rachana Referring Provider Nilson REGISTRY NURSE-C, Kathrin Attending Provider [place] REGISTRY NURSE-C, Kathrin Referring Provider Jaren REGISTRY NURSE-C, Rachana Primary Care Provider Jose Alberto AVILES, Dr. Camacho Referring Provider [phone] Jose Alberto AVILES, Dr. Camacho Emergency Provider Bridenthal, Deyanira Referring Unavailable Jaren REGISTRY NURSE, Rachana Primary Care Unavailable Bridenthal, Deyanira Attending Unavailable Nilson REGISTRY NURSE, Kathrin Attending Unavailable Jaren REGISTRY NURSE, [place] Primary Care Unavailable Jaren REGISTRY NURSE, Rachana Referring Unavailable Jaren REGISTRY NURSE, [place] Primary Care Unavailable Jaren REGISTRY NURSE, Rachana Attending Unavailable Jaren REGISTRY NURSE, Rachana Referring Unavailable [place] REGISTRY NURSE, Kathrin Attending Unavailable Nilson REGISTRY NURSE, Kathrin Referring Unavailable Jaren REGISTRY NURSE, [place] Primary Care Unavailable Abrams, Doug Attending Unavailable Abrams, Doug Referring Unavailable Jaren REGISTRY NURSE, [place] Primary Care Unavailable [place] REGISTRY NURSE, Kathrin Attending Unavailable [place] REGISTRY NURSE, Kathrin Referring Unavailable Jaren REGISTRY NURSE, [place] Primary Care Unavailable Medications Current Medications Medication Drug Class(es) Dates Sig (Normalized) Sig (Original) [id number] 200 actuat albuterol 0.09 mg/actuat metered dose inhaler (20 sources) beta2-Adrenergic Agonist Start: 03-10-2022 End: 10-26-2023 take 2 puff(s) by inhalation every six hours as needed for wheezing albuterol 108 (90 Base) MCG/ACT inhaler Indications: Exercise-induced bronchospasm Inhale 2 puffs every 6 hours as needed for wheezing or shortness of breath. 18 g 1 10/26/2023 Active Start: 05-14-2020 Albuterol Sulf ate (Proair Hfa) 90 mcg/actuation HFA aerosol inhaler Active 1 NMA INHALATION ONCE May 14, 2020 12:00am Start: 05-14-2020 Albuterol Sulf ate (Proair Hfa) 90 mcg/actuation HFA aerosol inhaler Active 1 INH INHALATION ONCE May 14, 2020 12:00am amoxicillin 875 mg / clavulanate 125 mg oral tablet (1 source) Penicillin-class Antibacterial Start: 01-11-2023 End: 01-18-2023 take 1 tablet by mouth twice daily amoxicillin-clavulanate (Augmentin) 875-125 MG tablet Indications: Acute non-recurrent maxillary sinusitis Take 1 tablet by mouth 2 times daily for 7 days. 14 tablet 0 01/11/2023 01/18/2023 Active docosahexaenoic acid 200 mg oral capsule (10 sources) Start: 09-01-2020 Docosahexaenoic Acid ( Dha) 200 mg capsule Active mg PO September 01, 2020 1:00am hydrOXYzine hydrochloride 25 mg oral tablet (3 sources) Antihistamine Start: 11-30-2023 take 1 tablet by mouth once daily as needed for anxiety hydrOXYzine HCl (Atarax) 25 MG tablet Indications: Anxiety Take 1 tablet (25 mg) by mouth Nightly as needed for anxiety (sleep). 30 tablet 1 11/30/2023 Active Vit-DSS-Fe Cbn-FA ( AD PO) (16 sources) Vit-DSS -Fe Cbn-FA ( AD PO) Take by mouth. Active Vit-DSS -Fe Cbn-FA ( AD PO) Take by mouth. 0 Active valACYclovir 1000 mg oral tablet (20 sources) Herpesvirus Nucleoside Analog DNA Polymerase Inhibitor, Herpes Simplex Virus Nucleoside Analog DNA Polymerase Inhibitor, Herpes Zoster Virus Nucleoside Analog DNA Polymerase Inhibitor Start: 07-07-2024 End: 12-12-2024 take 2 tablets by mouth twice daily valACYclovir (Valtrex) 1 g tablet TAKE TWO TABLETS BY MOUTH TWICE DAILY FOR ONE DAY 12 tablet 12/12/2024 Active Start: 10-16-2018 End: 08-20-2019 Valacyclovir 1 gram tablet A ctive PO as needed 12 3 0 August 20, 2019 11:21am Start: 10-16-2018 End: 07-06-2023 take 2 tablets by mouth twice daily valACYclovir (Valtrex) 1 g tablet TAKE TWO TABLETS BY MOUTH TWICE DAILY FOR ONE DAY 12 tablet 0 07/31/2022 11/29/2022 Discontinued Completed/Discontinued Medications Medication Drug Class(es) Dates Sig (Normalized) Sig (Original) amoxicillin 500 mg oral capsule (10 sources) Penicillin-class Antibacterial Start: 11-12-2017 End: 11-22-2017 take 1 capsule by mouth twice daily Amoxicillin 500 mg capsule Discontinued 500 mg PO TWICE A DAY 20 10 0 November 12, 2017 1:00am November 21, 2017 1:00am November 22, 2017 1:06am clomiPHENE citrate 50 mg oral tablet (20 sources) Estrogen Agonist/Antagonist Start: 01-03-2021 End: 01-08-2021 take 1 tablet by mouth once daily Clomiphene Citrate 50 mg tablet Discontinued 50 mg PO daily 5 5 0 January 03, 2021 4:35pm January 07, 2021 12:00am January 08, 2021 12:17am Take cycle days 3-7 Start: 11-09-2020 End: 11-14-2020 take 1 tablet by mouth once daily Clomiphene Citrate 50 mg tablet Discontinued 50 mg PO daily 5 5 0 November 09, 2020 1:00am November 13, 2020 1:00am November 14, 2020 1:03am Take cycle days 3-7 dextromethorphan hydrobromide 1 mg/ml oral solution (10 sources) Uncompetitive O-vrxarl-C-aspartate Receptor Antagonist, Sigma-1 Agonist Start: 11-12-2017 End: 02-04-2018 Dextromethorphan Hbr (Vicks Dayquil Cough) 5 mg/5 mL syrup Discontinued PO 0 November 12, 2017 1:00am February 04, 2018 8:26am Start: 11-12-2017 End: 02-04-2018 Dextromethorphan Hbr (Vicks Dayquil Cough) 5 mg/5 mL syrup Discontinued PO November 12, 2017 1:00am February 04, 2018 8:26am letrozole 2.5 mg oral tablet (20 sources) Aromatase Inhibitor Start: 05-03-2021 End: 09-28-2021 Letrozole Discontinued 7.5 MG PO DAILY May 03, 2021 1:59pm September 28, 2021 4:21pm Take days 3-7 of cycle Start: 04-07-2021 End: 05-03-2021 Letrozole Discontinued 5 MG PO DAILY April 07, 2021 9:03am May 03, 2021 2:00pm Take days 3-7 of cycle Start: 01-10-2021 End: 09-28-2021 take 3-7 tablets by mouth once daily Letrozole 2.5 mg tablet Discontinued 7.5 mg PO DAILY 15 0 May 03, 2021 1:59pm September 28, 2021 4:21pm Take days 3-7 of cycle medroxyPROGESTERone acetate 10 mg oral tablet (14 sources) Progestin Start: 11-12-2024 End: 11-22-2024 take 1 tablet by mouth once daily Medroxyprogesterone 10 mg tablet Discontinued 10 mg PO daily 10 10 November 12, 2024 1:00am November 21, 2024 1:00am November 22, 2024 1:26am Start: 04-07-2021 End: 09-28-2021 take 1 tablet by mouth once daily Medroxyprogesterone (Provera) 10 mg tablet Discontinued 10 mg PO DAILY 10 3 April 07, 2021 12:00am September 28, 2021 4:21pm methylPREDNISolone 4 mg oral tablet (6 sources) Corticosteroid Start: 01-05-2023 End: 01-11-2023 take 1 tablet by mouth once Methylprednisolone (Medrol (Hitesh)) 4 mg tablets,dose pack Discontinued 4 mg PO per package directions 21 6 0 January 05, 2023 12:00am January 10, 2023 12:00am January 11, 2023 12:04am oseltamivir 75 mg oral capsule (10 sources) Neuraminidase Inhibitor Start: 10-16-2018 End: 2018 take 1 capsule by mouth twice daily Oseltamivir (Tamiflu) 75 mg capsule Discontinued 75 mg PO TWICE A DAY 10 5 0 October 16, 2018 1:00am October 20, 2018 1:00am 2018 1:08am sertraline 25 mg oral tablet (2 sources) Serotonin Reuptake Inhibitor Start: 12-20-2023 End: 07-30-2024 take 1 tablet by mouth once daily sertraline (Zoloft) 25 MG tablet Indications: Anxiety and depression Take 1 tablet (25 mg) by mouth daily. 30 tablet 1 12/20/2023 07/30/2024 Discontinued Problems Active Problems Problem Classification Problem Date Documented Da te Episodic/Chronic Anxiety disorders (20 sources) Anxiety; Translations: [Anxiety disorder, unspecified] Onset: 11-09-2021 07-01-2022 Chronic Asthma (20 sources) Exercise induced bronchospasm; Translations: [Exercise induced bronchospasm] Onset: 06-17-2015 07-01-2022 Chronic Disorders of lipid metabolism (7 sources) Hyperlipidemia; Translations: [Hyperlipidemia, unspecified] Onset: 12-05-2024 12-05-2024 Chronic Female infertility (20 sources) Anovulation; Translations: [Female infertility associated with anovulation] Onset: 12-07-2021 Chronic Immunizations and screening for infectious disease (3 sources) Contact with and (suspected) exposure to other viral communicable diseases; Translations: [Contact with or suspected exposure to other viral communicable disease] 08-29-2022 Episodic Menstrual disorders (20 sources) Irregular periods; Translations: [Irregular menstruation, unspecified] Onset: 04-13-2015 09-01-2020 Chronic Comment on above: usually <60 days Mood disorders (18 sources) Mood disorders; Translations: [Depression, unspecified] Onset: 08-25-2022 Resolved: 11-28-2024 08-25-2022 Nonspecific chest pain (4 sources) Chest pain; Translations: [Chest pain, unspecified] Onset: 07-30-2024 Episodic Other endocrine disorders (16 sources) Polycystic ovary syndrome; Translations: [Polycystic ovarian syndrome] Onset: 04-02-2017 07-01-2022 Chronic Other gastrointestinal disorders (18 sources) Irritable bowel syndrome; Translations: [Mixed irritable bowel syndrome] Onset: 04-02-2017 07-01-2022 Chronic Other gastrointestinal disorders (2 sources) Mixed irritable bowel syndrome; Translations: [Mixed irritable bowel syndrome] Onset: 07-01-2022 Chronic Other upper respiratory disease (16 sources) Allergic rhinitis; Translations: [Allergic rhinitis, unspecified] Onset: 06-17-2015 07-01-2022 Chronic Residual codes; unclassified (5 sources) Other specified health status; Translations: [Patient travels] 01-26-2021 Episodic Residual codes; unclassified (6 sources) Infertile 01-10-2024 Episodic Comment on above: male and female fact or. awaiting adoption match male and female fact or. Adopted [facility] at January 2024 Unclassified (9 sources) Infertile; Translations: [Infertility] Viral infection (20 sources) Disease caused by 2019-nCoV; Translations: [COVID-19] Onset: 11-17-2020 01-26-2021 Episodic Past or Other Problems Problem Classification Problem Date Documented Date Episodic/Chronic Abdominal pain (16 sources) Right upper quadrant pain; Translations: [Left upper quadrant pain] Onset: 04-27-2017 Resolved: 11-28-2024 07-30-2024 Episodic Comment on above: [place] Biliary tract disease (2 sources) Cholesterolosis of gallbladder; Translations: [Cholesterolosis of gallbladder] Onset: 04-11-2017 Episodic Malaise and fatigue (9 sources) Fatigue; Translations: [Other fatigue] Onset: 12-20-2023 12-20-2023 Episodic Mood disorders (17 sources) Recurrent major depressive episodes, moderate ; Translations: [Major depressive disorder, recurrent, moderate] Onset: 11-09-2021 Resolved: 12-20-2023 07-01-2022 Chronic Nausea and vomiting (2 sources) Nausea; Translations: [Nausea] Onset: 07-30-2024 Episodic Other inflammatory condition of skin (2 sources) Itching ; Translations: [Itching] Onset: 07-30-2024 Episodic Other screening for suspected conditions (not mental disorders or infectious disease) (12 sources) Patient encounter status; Translations: [Encounter for screening for diabetes mellitus] Onset: 11-28-2024 11-30-2023 Episodic Other upper respiratory infections (20 sources) Acute upper respiratory infection; Translations: [Acute upper respiratory infection, unspecified] Onset: 01-11-2023 Resolved: 11-26-2024 08-29-2022 Episodic Results Test Name Value Interpretation Reference Range Facility Absolute lymphocyte countOrd ered By: Roma Ceja on 04-30-2025 Lymphocytes Auto (Unsp spec) [#/Vol] 3.41 10*3/uL 0.83-4.51 [facility] Absolute neutrophil countOrd ered By: Roma Ceja on 04-30-2025 Neutrophils (Bld) [#/Vol] 6.6 10*3/uL 2.0-7.7 [facility] Anion gap in Serum or Plasma Ordered By: Roma Ceja on 04-30-2025 Anion gap [Moles/Vol] 14 mmol/L 5-15 [facility] Automated lymphocyte count a s percentage of total leukocytesOrdered By: Roma Ceja on 04-30-2025 Lymphocytes/100 WBC Auto (Unsp spec) 32.4 % [facility] BUN/creatinine ratioOrdered By: Roma Ceja on 04-30-2025 Urea nitrogen/Creatinine [Mass ratio] 13.8 mg/mg 07-06 [facility] Basic Metabolic Profile (BMP )on 04-30-2025 BUN/CRE 13.8 RATIO Normal 07-06 [facility] Comment on above: Performed By: #### L 500.4100, L500.4050, L100.0500 #### [facility] [address] [place], [address] Calcium [Mass/Vol] 9.8 mg/dL Normal 7.6-11.0 [facility] Comment on above: Performed By: #### L 500.4100, L500.4050, L100.0500 #### [facility] [address] [place], [address] Chloride [Moles/Vol] 103 mmol/L Normal 98-108 [facility] Comment on above: Performed By: #### L 500.4100, L500.4050, L100.0500 #### [facility] [address] [place], [address] CO2 [Moles/Vol] 23.2 mmol/L Normal 21.0-32.0 [facility] Comment on above: Performed By: #### L 500.4100, L500.4050, L100.0500 #### [facility] [address] [place], [address] Creatinine [Mass/Vol] 0.92 mg/dL Normal 0.70-1.20 [facility] Comment on above: Performed By: #### L 500.4100, L500.4050, L100.0500 #### [facility] [address] [place], [address] ECRCL 81.36 ml/min Normal 50-250 [facility] Comment on above: Performed By: #### L 500.4100, L500.4050, L100.0500 #### [facility] [address] [place], [address] GAP 14 Normal 5-15 [facility] Comment on above: Performed By: #### L 500.4100, L500.4050, L100.0500 #### [facility] [address] [place], [address] GFR/1.73 sq M.predicted among non-blacks MDRD (S/P/Bld) [Vol rate/Area] 86 mL/min/{1.73_m2} Normal >60 [facility] Comment on above: Result Comment: mL/m in/1.73m2 CKD-EPI Creatinine Equation (2020) Performed By: #### L 500.4100, L500.4050, L100.0500 #### [facility] [address] [place], [address] Glucose [Mass/Vol] 81 mg/dL Normal 70-99 [facility] Comment on above: Performed By: #### L 500.4100, L500.4050, L100.0500 #### [facility] [address] [place], [address] Potassium [Moles/Vol] 4.2 mmol/L Normal 3.3-5.1 [facility] Comment on above: Result Comment: Hemo lysis present, Results??could be affected. ?? Performed By: #### L 500.4100, L500.4050, L100.0500 #### [facility] [address] [place], [address] Sodium [Moles/Vol] 141 mmol/L Normal 133-145 [facility] Comment on above: Performed By: #### L 500.4100, L500.4050, L100.0500 #### [facility] [address] [place], [address] Urea nitrogen [Mass/Vol] 13 mg/dL Normal 4-19 [facility] Comment on above: Performed By: #### L 500.4100, L500.4050, L100.0500 #### [facility] [address] [place], [address] Basophil percentageOrdered B y: Roma Ceja on 04-30-2025 Basophils/100 WBC (Bld) 0.5 % 0-1 [facility] CBC W/Diff, Automatedon 04-17-2024 Absolute Lymph 3.41 X10 3/uL Normal 0.83-4.51 [facility] Comment on above: Performed By: #### L 500.4100, L500.4050, L100.0500 #### [facility] [address] [place], [address] Absolute Neut 6.6 X10 3/uL Normal 2.0-7.7 [facility] Comment on above: Performed By: #### L 500.4100, L500.4050, L100.0500 #### [facility] [address] [place], [address] Basophils/100 WBC (Bld) 0.5 % Normal 0-1 [facility] Comment on above: Performed By: #### L 500.4100, L500.4050, L100.0500 #### [facility] [address] [place], [address] Eosinophils/100 WBC (Bld) 0.4 % Normal 0-5 [facility] Comment on above: Performed By: #### L 500.4100, L500.4050, L100.0500 #### [facility] [address] [place], [address] Erythrocyte distribution width (RBC) [Ratio] 12.6 % Normal 11.6-14.6 [facility] Comment on above: Performed By: #### L 500.4100, L500.4050, L100.0500 #### [facility] [address] [place], [address] Hematocrit (Bld) [Volume fraction] 45.6 % Normal 37-47 [facility] Comment on above: Performed By: #### L 500.4100, L500.4050, L100.0500 #### [facility] [address] [place], [address] Hemoglobin (Bld) [Mass/Vol] 15.3 g/dL High 12.0-15.0 [facility] Comment on above: Performed By: #### L 500.4100, L500.4050, L100.0500 #### [facility] [address] [place], [address] IG% 0.400 Normal 0.0-0.9 [facility] Comment on above: Result Comment: IG% - Immature Granulocytes (promyelocytes, myelocytes and metamyelocytes) > 1% indicates that a LEFT SHIFT is Present. Performed By: #### L 500.4100, L500.4050, L100.0500 #### [facility] [address] [place], [address] Lymphocytes/100 WBC (Bld) 32.4 % Normal 19-41 [facility] Comment on above: Performed By: #### L 500.4100, L500.4050, L100.0500 #### [facility] [address] [place], [address] MCH (RBC) [Entitic mass] 30.4 pg Normal 27.0-32.0 [facility] Comment on above: Performed By: #### L 500.4100, L500.4050, L100.0500 #### [facility] [address] [place], [address] MCHC (RBC) [Mass/Vol] 33.6 g/dL Normal 32-36 [facility] Comment on above: Performed By: #### L 500.4100, L500.4050, L100.0500 #### [facility] [address] [place], [address] MCV (RBC) [Entitic vol] 90.5 fL Normal 81-99 [facility] Comment on above: Performed By: #### L 500.4100, L500.4050, L100.0500 #### [facility] [address] [place], [address] Monocytes/100 WBC (Bld) 3.6 % Normal 0-10 [facility] Comment on above: Performed By: #### L 500.4100, L500.4050, L100.0500 #### [facility] [address] [place], [address] Neutrophils/100 WBC (Bld) 62.7 % Normal 47-70 [facility] Comment on above: Performed By: #### L 500.4100, L500.4050, L100.0500 #### [facility] [address] [place], [address] Nucleated RBC (Bld) [#/Vol] 0 10*3/uL Normal 0-5 [facility] Comment on above: Performed By: #### L 500.4100, L500.4050, L100.0500 #### [facility] [address] [place], [address] Platelet mean volume (Bld) [Entitic vol] 8.5 fL Normal 6.2-12.0 [facility] Comment on above: Performed By: #### L 500.4100, L500.4050, L100.0500 #### [facility] [address] [place], [address] Platelets (Bld) [#/Vol] 383 10*3/uL Normal 150-450 [facility] Comment on above: Performed By: #### L 500.4100, L500.4050, L100.0500 #### [facility] [address] [place], [address] RBC (Bld) [#/Vol] 5.04 10*6/uL Normal 4.2-5.4 [facility] Comment on above: Performed By: #### L 500.4100, L500.4050, L100.0500 #### [facility] [address] [place], [address] RDW SD 41.8 fl Normal 35.1-43.9 [facility] Comment on above: Performed By: #### L 500.4100, L500.4050, L100.0500 #### [facility] [address] [place], [address] WBC (Bld) [#/Vol] 10.5 10*3/uL Normal 4.4-11.0 [facility] Comment on above: Performed By: #### L 500.4100, L500.4050, L100.0500 #### [facility] [address] [place], [address] CTA Chest W/WO Contraston CTA Chest W/WO Contrast [facility] [address] [place] [address] CTA Chest W/WO Contrast MR#: [id number] Acct: [id number] Name: CHAYO ACHARYA Rep #: [id number] : 1995 F 29 From: Jean Waldron MD PCP: ANNEMARIE Dockery Status: [facility] Study: CTA Chest W/WO Contrast Date of Exam: 04/30/25 Exam# [id number] Ordering Dr: Roma Ceja PROCEDURE: CTA CHEST W/WO CONTRAST 04/30/2025 REASON FOR EXAM: CHEST PAIN TO RULE OUT PE TECHNIQUE: CTA CHEST W/WO CONTRAST Multiplanar Sagittal and Coronal images were obtained. 3D post processing was performed CONTRAST: Isovue 370 VOLUME: 99 mL One or more dose reduction techniques were used (e.g., Automated exposure control, adjustment of the mA and/or kV according to patient size, use of iterative reconstruction technique). RADIATION DOSE SUMMARY: CTDlvol: 13 mGy DLP: 362 mGycm COMPARISON: April 30, 2025 # of known CTs in the past 12 months: 0 # of known Cardiac Nuclear Medicine Studies in the past 12 months: 0 FINDINGS: Thoracic Aorta: No evidence of aortic dissection or rupture. No aneurysm. Heart: Normal size. No pericardial effusion. Pulmonary Vessels: The timing and quality of the contrast bolus is diagnostic. There is no evidence of acute or chronic pulmonary embolus. Hardware: Unremarkable Lymph nodes: None appear enlarged. Lungs and Airways: Respiratory motion artifact. No consolidation, mass or worrisome nodule. Pleura: No pleural effusion or pneumothorax. Upper Abdomen: Normal Bones: Straightening of the thoracic kyphosis. CT/CTA Chest W/WO Contrast IMPRESSION: No acute or chronic pulmonary embolus. No acute aortic syndrome Reading Location: [id number] CC: ANNEMARIE Gu; HOSEA Mi Gauge And Weigh Machine Adjuster: Signed Normal [facility] Carbon dioxide, total [Moles /volume] in Central venous bloodOrdered By: Roma Ceja on 04-30-2025 CO2 [Moles/Vol] 23.2 mmol/L 21.0-32.0 [facility] Chest PA and Lateralon 04-30 Chest PA and Lateral [facility] [address] [place] [address] Chest PA and Lateral MR#: [id number] Acct: [id number] Name: CHAYO ACHARYA Rep #: [id number] : 1995 F 29 From: Leo lewis MD PCP: ANNEMARIE Dockery Status: REG ER Study: Chest PA and Lateral Date of Exam: 04/30/25 Exam# [id number] Ordering Dr: Roma Ceja PROCEDURE: CHEST PA AND LATERAL 04/30/2025 REASON FOR EXAM: CHEST PAIN TECHNIQUE: CHEST PA AND LATERAL COMPARISON: None FINDINGS: Hardware: EKG electrodes are seen. Heart: The heart size is normal. Mediastinum: The mediastinal contour is unremarkable. Lungs: The lungs are clear. Bones: The bones are unremarkable. RAD/Chest PA and Lateral IMPRESSION: NEGATIVE CHEST Reading Location: [facility]- CC: ANNEMARIE Gu; HOSEA Mi Gauge And Weigh Machine Adjuster: Signed Normal [facility] Chloride assayOrdered By: Rosi Ceja on 04-30-2025 Chloride [Moles/Vol] 103 mmol/L 98-108 [facility] D-Dimer Quantitative (DVT/PE )on 04-30-2025 D-DIMER QUANT 1.07 FEU/ug/m Invalid Interpretation Code 0.27-0.49 [facility] Comment on above: Order Comment: CRITI RENETTA VALUE CALLED TO ANNALISA ENG04/30/25 1312 Saundra Piña.RESULTS READ BACK BY SAME. Result Comment: D-Di jermain ELEVATED (>0.49): Additional studies and clinical assessments are indicated to conclude diagnosis of: Deep Vein Thrombosis (DVT) or Pulmonary Embolism (PE) Performed By: #### L 500.4100, L500.4050, L100.0500 #### [facility] [address] [place], [address] Emergency Department Summary on 04-30-2025 Emergency Department Summary [facility] Medical Records Department [address] [place] [address] Emergency Department Summary 04/30/25 MR#: [id number] Acct: [id number] Name: CHAYO ACHARYA Rep #: [id number] : 1995 29 From: Doug Abrams MD PCP: Rachana Jaren, REGISTRY NURSE-C Status:DEP ER Location: ED HPI History of Present Illness Chief Complaint: Chest Pain Narrative Narrative: 29-year-old female with no significant past medical history presents with chest pain. She works at [employer] and states around 10 AM she was at work and developed tightness in the center of her chest. The pain is around 3 out of 10 and is unchanging. She also feels slightly short of breath. No nausea, vomiting, or diaphoresis. No jaw or upper extremity pain. No history of similar symptoms. She has no personal history of CAD or DVT/PE. She states she has a strong paternal history of PR in her dad and grandfather. She reports driving to [place] a little less than a month ago. No leg pain or swelling. She does not smoke. [facility] Medical History COVID-19 Migraines Asthma Home Medications ???Medication ???Instructions ???Recorded ???Last Taken ???Type valacyclovir 1 gram tablet PO PRN 3 days #12 tabs 08/20/19 Un known History albuterol sulfate 90 mcg/actuation 1 inh inhalation ONCE 05/14/20 U nknown History aerosol inhaler (ProAir HFA) docosahexaenoic acid 200 mg mg PO 09/01/20 Unknown History capsule ( DHA) Allergy/AdvReac Type Severity Reaction Status Date / Time No Known Allergies Allergy Verified 04/30/25 11:47 Family History Grandmother Cancer ovarian cancer - paternal grandmother Grandfather Myocardial infarction Father Myocardial infarction Grandfather Diabetes Social History Smoking Status: Never smoker alcohol intake: current Alcohol type: wine substance use type: does not use caffeine: Yes what type of physical activity do you participate in: none seatbelt use: always do you feel safe at home: Yes 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 CVS: Positive for chest pain. No palpitations or syncope. Respiratory: Negative for cough. GI: Negative for abdominal pain, nausea, vomiting. EXAM Physical Exam Narrative Exam Narrative: CONST: Patient sitting in no acute distress. EYES: Normal inspection. NECK: Normal inspection. RESP: No respiratory distress, CTAB. CVS: Regular rate and rhythm, no murmur, no gallop. ABD: Soft and nontender, no guarding or rebound, nondistended. SKIN: Color normal, no rash, warm, dry, intact. EXTREMITIES: Normal appearance, no pedal edema. NEURO: Alert and answering questions appropriately. PSYCH: Normal affect. Const Vital Signs: 04/30/25 11:45 04/30/25 12:44 04/30/25 13:00 Temperature 98 F Temperature Source Oral Pulse Rate 107 H 76 76 Respiratory Rate 18 14 14 Respiratory Effort Blood Pressure 144/104 H 127/87 H 127/87 H Blood Pressure Mean 117 100 100 Pulse Ox 100 100 100 Oxygen Delivery Method Room Air 04/30/25 13:13 04/30/25 14:00 04/30/25 15:00 Temperature Temperature Source Pulse Rate 81 71 Respiratory Rate Respiratory Effort Normal Non-Labored Blood Pressure 108/84 H 115/87 H Blood Pressure Mean 92 96 Pulse Ox 99 100 Oxygen Delivery Method Room Air Room Air 04/30/25 15:15 Temperature 98 F Temperature Source Pulse Rate 71 Respiratory Rate 14 Respiratory Effort Blood Pressure 115/87 H Blood Pressure Mean 96 Pulse Ox 100 Oxygen Delivery Method Physical Exam Const Vital Signs: 04/30/25 11:45 04/30/25 12:44 04/30/25 13:00 Temperature 98 F Temperature Source Oral Pulse Rate 107 H 76 76 Respiratory Rate 18 14 14 Respiratory Effort Blood Pressure 144/104 H 127/87 H 127/87 H Blood Pressure Mean 117 100 100 Pulse Ox 100 100 100 Oxygen Delivery Method Room Air 04/30/25 13:13 04/30/25 14:00 04/30/25 15:00 Temperature Temperature Source Pulse Rate 81 71 Respiratory Rate Respiratory Effort Normal Non-Labored Blood Pressure 108/84 H 115/87 H Blood Pressure Mean 92 96 Pulse Ox 99 100 Oxygen Delivery Method Room Air Room Air 04/30/25 15:15 Temperature 98 F Temperature Source Pulse Rate 71 Respiratory Rate 14 Respiratory Effort Blood Pressure 115/87 H Blood Pressure Mean 96 Pulse Ox 100 Oxygen Delivery Method Heart Score History: Slightly/Non-Suspicious ECG: Normal Age: Ris (more content not included)... Normal [facility] Eosinophil percentageOrdered By: Roma Ceja on 04-30-2025 Eosinophils/100 WBC (Bld) 0.4 % 0-5 [facility] Erythrocyte distribution wid th ratioOrdered By: Roma Ceja on 04-30-2025 Erythrocyte distribution width (RBC) [Ratio] 12.6 % 11.6-14.6 [facility] Erythrocyte distribution wid th standard deviationOrdered By: Roma Ceja on 04-30-2025 Erythrocyte distribution width (RBC) [Ratio] 41.8 fl 35.1-43.9 [facility] Glomerular filtration rate ( GFR) estimation/1.73 sq m using serum, plasma, or whole bOrdered By: Roma Ceja on 04-30-2025 GFR/1.73 sq M.predicted among non-blacks MDRD (S/P/Bld) [Vol rate/Area] 86 mL/min/{1.73_m2} >60 [facility] Comment on above: mL/min/1.73m2 CKD-EP I Creatinine Equation (2020) Hematocrit Auto (Bld) [Volum e fraction]Ordered By: Roma Ceja on 04-30-2025 Hematocrit (Bld) [Volume fraction] 45.6 % 37-47 [facility] Hemoglobin measurementOrdere d By: Roma Ceja on 04-30-2025 Hemoglobin (Bld) [Mass/Vol] 15.3 g/dL High 12.0-15.0 [facility] Immature granulocytes/100 WB C Auto (Bld)Ordered By: Roma Ceja on 04-30-2025 Immature granulocytes/100 WBC (Bld) 0.400 % 0.0-0.9 [facility] Comment on above: IG% - Immature Granu locytes (promyelocytes, myelocytes and metamyelocytes) > 1% indicates that a LEFT SHIFT is Present. L501.4021on 04-30-2025 Trop T High Sen < 6 Normal <=14 [facility] Comment on above: Result Comment: Hemo lysis present, Results??could be affected. ?? Performed By: #### L 500.4100, L500.4050, L100.0500 #### [facility] [address] [place], [address] MCV (mean corpuscular volume ) determinationOrdered By: Roma Ceja on 04-30-2025 MCV (RBC) [Entitic vol] 90.5 fL 81-99 [facility] Mean corpuscular hemoglobin (MCH) determinationOrdered By: Roma Ceja on 04-30-2025 MCH (RBC) [Entitic mass] 30.4 pg 27.0-32.0 [facility] Mean corpuscular hemoglobin concentration (MCHC) determinationOrdered By: Roma Ceja on 04-30-2025 MCHC (RBC) [Mass/Vol] 33.6 g/dL 32-36 [facility] Mean platelet volume determi nationOrdered By: Roma Ceja on 04-30-2025 Platelet mean volume (Bld) [Entitic vol] 8.5 fL 6.2-12.0 [facility] Monocyte percentageOrdered B y: Roma Ceja on 04-30-2025 Monocytes/100 WBC (Bld) 3.6 % 0-10 [facility] Neutrophil percentageOrdered By: Roma Ceja on 04-30-2025 Neutrophils/100 WBC (Bld) 62.7 % 47-70 [facility] Nucleated red blood cell per centageOrdered By: Roma Ceja on 04-30-2025 Nucleated RBC/100 WBC (Bld) [Ratio] 0 % 0-5 [facility] Platelet countOrdered By: Rosi Ceja on 04-30-2025 Platelets (Bld) [#/Vol] 383 10*3/uL 150-450 [facility] Potassium measurement (mass/ volume)Ordered By: Roma Ceja on 04-30-2025 Potassium (Unsp spec) [Mass/Vol] 4.2 mmol/L 3.3-5.1 [facility] Comment on above: Hemolysis present, R esults could be affected. ,Serum,hCG Quali.on 04-30-2025 HCG, SERUM QUAL Negative Normal [facility] Comment on above: Performed By: #### L 700.6800 #### [facility] [address] [address] [place], [place], [address] RBC Auto (Bld) [#/Vol]Ordere d By: Roma Ceja on 04-30-2025 RBC (Bld) [#/Vol] 5.04 10*6/uL 4.2-5.4 [facility] Serum beta-hCG test, qualita tiveOrdered By: Roma Ceja on 04-30-2025 Beta HCG ( test) Ql Negative [facility] Serum creatinine measurement (mass/volume)Ordered By: Roma Ceja on 04-30-2025 Creatinine [Mass/Vol] 0.92 mg/dL 0.70-1.20 [facility] Serum glucose measurement (m ass/volume)Ordered By: Roma Ceja on 04-30-2025 Glucose [Mass/Vol] 81 mg/dL 70-99 [facility] Serum or plasma calcium paul urement (mass/volume)Ordered By: Roma Ceja on 04-30-2025 Calcium [Mass/Vol] 9.8 mg/dL 7.6-11.0 [facility] Serum or plasma urea nitroge n measurement (mass/volume)Ordered By: Roma Ceja on 04-30-2025 Urea nitrogen [Mass/Vol] 13 mg/dL 4-19 [facility] Sodium levelOrdered By: Roma Ceja on 04-30-2025 Sodium [Moles/Vol] 141 mmol/L 133-145 [facility] Troponin T HS 2 HRon 025 Trop T High Sen < 6 Normal <=14 [facility] Comment on above: Performed By: #### L 500.4100, L500.4050, L100.0500 #### [facility] [address] [place], [place], [id number] Troponin T.cardiac [Mass/vol ume] in Serum or Plasma by High sensitivity methodOrdered By: Roma Ceja on 04-30-2025 Troponin T.cardiac High sensitivity method [Mass/Vol] < 6 ng/L <14 [facility] Troponin T.cardiac High sensitivity method [Mass/Vol] < 6 ng/L <14 [facility] Comment on above: Hemolysis present, R esults could be affected. White blood cell (WBC) count Ordered By: Romajassi Ceja on 04-30-2025 WBC (Bld) [#/Vol] 10.5 10*3/uL 4.4-11.0 [facility] Pelvic w/ Transvaginalon Pelvic w/ Transvaginal [facility] [address] [address] Pelvic w/ Transvaginal MR#: [id number] Acct: [id number] Name: CHAYO ACHARYA Rep #: [id number] : 1995 F 29 From: Mike Pandey MD PCP: ANNEMARIE Dockery Status: REG CLI Study: Pelvic w/ Transvaginal Date of Exam: 01/28/25 Exam# [id number] Ordering Dr: Kathrin Devine NP REGISTRY NURSE -Hans PROCEDURE: PELVIC W/ TRANSVAGINAL 01/28/2025 REASON FOR EXAM: PAIN TECHNIQUE: Transabdominal and transvaginal pelvic ultrasound FINDINGS: Transabdominal and transvaginal imaging. The uterus measures 9.4 x 5.1 x 3.6 cm and appears within limits. Homogeneous trilaminar appearing endometrium appears prominent at 1.5 cm, correlate with menstrual cycle. Cervix appears within limits. Right ovary measures 4.5 x 2.6 x 2.5 cm and appears within limits. Left ovary measures 2.9 x 2.9 x 1.8 cm and appears within limits containing small follicles. No evidence of adnexal mass. Evidence of bilateral vascular ovarian flow is seen. No free fluid. Bladder volume 85 cc. US/Pelvic w/ Transvaginal IMPRESSION: Homogeneous trilaminar appearing endometrium appears prominent at 1.5 cm, correlate with menstrual cycle. 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 Machine Operator Office Visit Report [facility] [address], [address] [place] [address] OFFICE VISIT Date of Service: 01/22/25 MR#: [id number] Acct: [id number] Name: CHAYO ACHARYA Rep #: [id number] : 1995 Provider: ANNEMARIE dominguez Age/Sex: 29/F Location: [facility] Status: Signed Intake Vital Signs 01/10/24 13:13 01/22/25 09:29 01/22/25 09:30 Height 5 ft 2 in 5 ft 2 in 5 ft 2 in Weight: 155 lb 6 oz BMI 28.4 BP 115/77 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 Is patient in pain?: No Allergies No Known Allergies Allergy (Verified 01/22/25 09:33) Medications ???Medication ???Instructions ???Recorded ???Confirmed ???Type valacyclovir 1 gram tablet PO PRN 3 days #12 tabs 08/20/19 History albuterol sulfate 90 mcg/actuation 1 inh inhalation ONCE 05/14/20 0 01/22/25 History aerosol inhaler (ProAir HFA) docosahexaenoic acid 200 mg mg PO 09/01/20 01/22/25 History capsule ( DHA) Is last menstrual period known: Yes Last Menstrual Period: 01/06/25 Post menopausal: No Patient : No : No PFSH Medical History COVID-19 Migraines Asthma Family History Grandmother Cancer ovarian cancer - paternal grandmother Grandfather Myocardial infarction Father Myocardial infarction Grandfather Diabetes Social History Smoking Status: Never smoker alcohol intake: current Alcohol type: wine substance use type: does not use caffeine: Yes what type of physical activity do you participate in: none seatbelt use: always do you feel safe at home: Yes 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 Date Name GA/Weeks Outcome Route Bth Weight Infant Gen Labor Lgth Anesthesia Del Locatn Provider FOB Unknown isaac-adopted January 2024 HPI Encounter for routine gynecological examination Details: CHAYO ACHARYA is a 29 year old who presents for annual exam. Noting pain lower right side with intercourse. Adopted [place] at January 2024. Last PAP: 2023 History of abnormal PAP: no Last mammogram: age 34 Other preventative health care screenings: Jaren/Rosita Female Reproductive History Last Menstrual Period: 01/06/25 Cycle Length: 21-35 Questions: metorrhagia: No, sexually active: Yes, dyspareunia: Yes (RJQ) and PCB: No ROS Const Constitutional: Denies fatigue, weight gain or weight loss Cardio Card: Denies chest pain Resp Resp: Denies cough or dyspnea on exertion GI GI: Denies abdominal pain, bloating, change in stool character, constipation or vomiting : Reports as per HPI; Denies difficulty voiding, pelvic pain, urinary frequency, urinary incontinence, urinary urgency, vaginal discharge or vaginal pruritus Exam Const General: cooperative, healthy appearing, no acute distress and well developed Orientation: alert, oriented to person and oriented to place HENMT Head: normal to inspection Neck Neck: normal visual inspection Thyroid: thyroid normal Lymphatic: no lymphadenopathy noted Chest Breast inspection: normal inspection of the breasts and normal inspection of the axillae Breast palpation: normal palpation of the breasts, normal palpation of the axillae and no axillary lymphadenopathy Resp Effort Inspection: normal respiratory effort GI Palpation: soft, no masses and nontender Rectal Exam: deferred External Female Exam: normal external appearance and normal appearance of the urethra Urethra: normal appearance of the urethra and normal palpation Speculum Exam - Vagina: normal appearance of the vagina and normal vaginal discharge Speculum Exam - Cervix: normal appearance of the cervix Bimanual Exam- Vagina Uterus: normal bimanual exam, uterine size normal, uterine shape normal and non-tender Bimanual Exam- Adnexa, other: normal adnexae, no masses, normal and non-tender Pelvic Support: normal Neuro General: patient alert and patient oriented x3 Psych Affect: normal affect Coding Level of Care Code Off vis,est,prev 18-39yrs Diagnoses Encounter for gynecological examination with abnormal finding Z01.411 Gynecological examination findings: abnormal findings PRESENT Infertility Pelvic pain R10.2 Assessment and Plan Assessment and Plan (1) Encounter for routine gynecological examination: Qualifiers: Gynecological examination findings: abnormal findings PRESENT Qualified Code(s): Z01 (more content not included)... Normal [facility] 36on 01-05-2025 36 Rx sent. Follow up a s scheduled. [facility] 36 Prescription Request : VALACYCLOVIR HCL 1 GRAM TABLET Last medication check: 11/28/24 Last physical exam: 11/28/24 Next scheduled appointment: 12/02/25 Last date of refill on this medication 12/12/24 (qty 12 refill 0) [facility] 36on 12-12-2024 36 Prescription Request : Last medication check: none Last physical exam: 11/28/24 Next scheduled appointment: 12/02/25 Last date of refill on this medication 07/07/24 12 tablets 1 refill [facility] 29on 12-05-2024 29 Addended by: RACHANA GU on: 12/05/2024 01:22 PM Modules accepted: Orders [facility] 29 Addended by: AYDE IBARRA on: 12/05/2024 01:00 PM Modules accepted: Orders [facility] 36on 12-05-2024 36 Called and spoke dustin Steenney, states that she would like to work on diet and exercise first before starting medication. Would also like a diet plan/cheat sheet to go off of so she knows how to improve her diet to help bring these down. Called Chayo back after talking with Rachana about when to recheck, recheck in 6 months, notified Chayo of this. She will get this done at [facility] again, as soon as order is placed, advised her that I will attach both the cholesterol diet and lab orders to her Mychart. Labs pended. [facility] 36 Received blood work results that were drawn through [facility]. Blood count is normal. Negative for signs of infection or anemia. Chem panel and blood sugar are normal. Total and bad cholesterol levels are elevated. Other cholesterol levels are good. Recommend starting a low-dose rosuvastatin 5 mg nightly to help bring bad cholesterol levels down and recheck levels again in 4 weeks. [facility] Anion gap in Serum or Plasma Ordered By: Rachana Gu on 12-01-2024 Anion gap [Moles/Vol] 15 mmol/L 5-15 [facility] BUN/creatinine ratioOrdered By: Rachana Gu on 12-01-2024 Urea nitrogen/Creatinine [Mass ratio] 13.7 mg/mg 10- [facility] Bilirubin, totalOrdered By: Rachana Gu on 12-01-2024 Bilirubin [Mass/Vol] 0.66 mg/dL 0.00-1.30 [facility] CBC-Complete Blood Cnt No Di ffon 12-01-2024 Erythrocyte distribution width (RBC) [Ratio] 12.3 % Normal 11.6-14.6 [facility] Comment on above: Performed By: #### L 500.4100, L500.4050, L100.0500 #### [facility] [address] [place], [address] Hematocrit (Bld) [Volume fraction] 42.5 % Normal 37-47 [facility] Comment on above: Performed By: #### L 500.4100, L500.4050, L100.0500 #### [facility] [address] [place], [address] Hemoglobin (Bld) [Mass/Vol] 14.3 g/dL Normal 12.0-15.0 [facility] Comment on above: Performed By: #### L 500.4100, L500.4050, L100.0500 #### [facility] [address] [place], [address] MCH (RBC) [Entitic mass] 30.4 pg Normal 27.0-32.0 [facility] Comment on above: Performed By: #### L 500.4100, L500.4050, L100.0500 #### [facility] [address] [place], [address] MCHC (RBC) [Mass/Vol] 33.6 g/dL Normal 32-36 [facility] Comment on above: Performed By: #### L 500.4100, L500.4050, L100.0500 #### [facility] [address] [place], [address] MCV (RBC) [Entitic vol] 90.4 fL Normal 81-99 [facility] Comment on above: Performed By: #### L 500.4100, L500.4050, L100.0500 #### [facility] [address] [place], [address] Platelet mean volume (Bld) [Entitic vol] 8.6 fL Normal 6.2-12.0 [facility] Comment on above: Performed By: #### L 500.4100, L500.4050, L100.0500 #### [facility] [address] [place], [address] Platelets (Bld) [#/Vol] 341 10*3/uL Normal 150-450 [facility] Comment on above: Performed By: #### L 500.4100, L500.4050, L100.0500 #### [facility] [address] [place], [address] RBC (Bld) [#/Vol] 4.70 10*6/uL Normal 4.2-5.4 [facility] Comment on above: Performed By: #### L 500.4100, L500.4050, L100.0500 #### [facility] [address] [place], [address] RDW SD 40.4 fl Normal 35.1-43.9 [facility] Comment on above: Performed By: #### L 500.4100, L500.4050, L100.0500 #### [facility] [address] [place], [address] WBC (Bld) [#/Vol] 8.8 10*3/uL Normal 4.4-11.0 [facility] Comment on above: Performed By: #### L 500.4100, L500.4050, L100.0500 #### [facility] [address] [place], [address] Calculated very low density lipoprotein (VLDL) cholesterol measurementOrdered By: Rachana Gu on 12-01-2024 Calculated very low density lipoprotein (VLDL) cholesterol measurement 16 mg/dL 5-40 [facility] VLDL Cholesterol 16 mg/dL 5-40 [facility] Carbon dioxide, total [Moles /volume] in Central venous bloodOrdered By: Rachana Gu on 12-01-2024 CO2 [Moles/Vol] 21.8 mmol/L 21.0-32.0 [facility] Chloride assayOrdered By: Bart Gu on 12-01-2024 Chloride [Moles/Vol] 102 mmol/L 98-108 [facility] Comprehensive Metabolic Prof ilon 12-01-2024 Albumin [Mass/Vol] 4.8 g/dL Normal 3.5-5.0 [facility] Comment on above: Performed By: #### L 500.4100, L500.4050, L100.0500 #### [facility] [address] [place], [address] Albumin/Globulin [Mass ratio] 1.5 {ratio} Normal 0.9-2.4 [facility] Comment on above: Performed By: #### L 500.4100, L500.4050, L100.0500 #### [facility] [address] [place] [place], [address] ALK PHOS 55 U/L Normal 35-104 [facility] Comment on above: Performed By: #### L 500.4100, L500.4050, L100.0500 #### [facility] [address] [place], [address] ALT [Catalytic activity/Vol] 18 U/L Normal <=34 [facility] Comment on above: Performed By: #### L 500.4100, L500.4050, L100.0500 #### [facility] [address] [place], [address] AST [Catalytic activity/Vol] 23 U/L Normal <=31 [facility] Comment on above: Performed By: #### L 500.4100, L500.4050, L100.0500 #### [facility] [address] [place], [address] Bilirubin [Mass/Vol] 0.66 mg/dL Normal 0.00-1.30 [facility] Comment on above: Performed By: #### L 500.4100, L500.4050, L100.0500 #### [facility] [address] [place], [address] BUN/CRE 13.7 RATIO Normal 10-20 [facility] Comment on above: Performed By: #### L 500.4100, L500.4050, L100.0500 #### [facility] [address] [place], [address] Calcium [Mass/Vol] 9.6 mg/dL Normal 7.6-11.0 [facility] Comment on above: Performed By: #### L 500.4100, L500.4050, L100.0500 #### [facility] [address] [place], [address] Chloride [Moles/Vol] 102 mmol/L Normal 98-108 [facility] Comment on above: Performed By: #### L 500.4100, L500.4050, L100.0500 #### [facility] [address] [place], [address] CO2 [Moles/Vol] 21.8 mmol/L Normal 21.0-32.0 [facility] Comment on above: Performed By: #### L 500.4100, L500.4050, L100.0500 #### [facility] [address] [place], [address] Creatinine [Mass/Vol] 0.89 mg/dL Normal 0.70-1.20 [facility] Comment on above: Performed By: #### L 500.4100, L500.4050, L100.0500 #### [facility] [address] [place], [address] GAP 15 Normal 5-15 [facility] Comment on above: Performed By: #### L 500.4100, L500.4050, L100.0500 #### [facility] [address] [place], [address] GFR/1.73 sq M.predicted among non-blacks MDRD (S/P/Bld) [Vol rate/Area] 89 mL/min/{1.73_m2} Normal >60 [facility] Comment on above: Result Comment: mL/m in/1.73m2 CKD-EPI Creatinine Equation (2020) Performed By: #### L 500.4100, L500.4050, L100.0500 #### [facility] [address] [place], [address] Globulin (S) [Mass/Vol] 3.1 g/dL Normal 2.2-4.2 [facility] Comment on above: Performed By: #### L 500.4100, L500.4050, L100.0500 #### [facility] [address] [place], [address] Glucose [Mass/Vol] 87 mg/dL Normal 70-99 [facility] Comment on above: Performed By: #### L 500.4100, L500.4050, L100.0500 #### [facility] [address] [place], [address] Potassium [Moles/Vol] 4.3 mmol/L Normal 3.3-5.1 [facility] Comment on above: Performed By: #### L 500.4100, L500.4050, L100.0500 #### [facility] [address] [place], [address] Sodium [Moles/Vol] 139 mmol/L Normal 133-145 [facility] Comment on above: Performed By: #### L 500.4100, L500.4050, L100.0500 #### [facility] [address] [place], [address] T PROT 7.9 g/dL Normal 5.9-8.4 [facility] Comment on above: Performed By: #### L 500.4100, L500.4050, L100.0500 #### [facility] [address] [place], [address] Urea nitrogen [Mass/Vol] 12 mg/dL Normal 4-19 [facility] Comment on above: Performed By: #### L 500.4100, L500.4050, L100.0500 #### [facility] [address] [place], [address] Erythrocyte distribution wid th ratioOrdered By: Rachana Gu on 12-01-2024 Erythrocyte distribution width (RBC) [Ratio] 12.3 % 11.6-14.6 [facility] Erythrocyte distribution wid th standard deviationOrdered By: Rachana Gu on 12-01-2024 Erythrocyte distribution width (RBC) [Entitic vol] 40.4 fL 35.1-43.9 [facility] Erythrocyte distribution width (RBC) [Ratio] 40.4 fl 35.1-43.9 [facility] GFR/1.73 sq M.predicted gonzalo g non-blacks MDRD (S/P/Bld) [Vol rate/Area]Ordered By: Rachana Gu on 12-01-2024 Estimated GFR (MDRD) Non-Af Amer 89 >60 [facility] Comment on above: mL/min/1.73m2 CKD-EP I Creatinine Equation (2020) Glomerular filtration rate ( GFR) estimation/1.73 sq m using serum, plasma, or whole bOrdered By: Rachana Gu on 12-01-2024 GFR/1.73 sq M.predicted among non-blacks MDRD (S/P/Bld) [Vol rate/Area] 89 mL/min/{1.73_m2} >60 [facility] Comment on above: mL/min/1.73m2 CKD-EP I Creatinine Equation (2020) Hematocrit Auto (Bld) [Volum e fraction]Ordered By: Rachana Gu on 12-01-2024 Hematocrit (Bld) [Volume fraction] 42.5 % 37-47 [facility] Hemoglobin measurementOrdere d By: Rachana Gu on 12-01-2024 Hemoglobin (Bld) [Mass/Vol] 14.3 g/dL 12.0-15.0 [facility] LDL calc ser/plasOrdered By: Rachana Gu on 12-01-2024 Cholesterol in LDL [Mass/Vol] 144 mg/dL [facility] Comment on above: Hhumxecrvl=293-926 m g/dL & Higher Ubdc=028 mg/dL or greater LDL Cholesterol, Calculated 144 mg/dL [facility] Comment on above: Rfasfgildl=363-946 m g/dL & Higher Joup=642 mg/dL or greater Laboratory - Chemistry and C hemistry - challengeOrdered By: Rachana Gu on 12-01-2024 AST [Catalytic activity/Vol] 23 U/L <32 [facility] Lipid Profileon 12-01-2024 CHOL:HDL 3.97 Normal [facility] Comment on above: Performed By: #### L 500.4100, L500.4050, L100.0500 #### [facility] [address] [place], [address] Cholesterol [Mass/Vol] 213 mg/dL High <=200 [facility] Comment on above: Result Comment: Chol esterol level, Desirable <200 mg/dL Borderline high cholesterol 200-239 mg/dL High cholesterol >=240 mg/dL Recommendations of the NCEP Adult Treatment Panel for the following risk-cutoff thresholds for the [place] population. Performed By: #### L 500.4100, L500.4050, L100.0500 #### [facility] [address] [place], [address] Cholesterol in HDL [Mass/Vol] 54 mg/dL Normal [facility] Comment on above: Result Comment: [place] onal Cholesterol Education Program (NCEP) guidelines: <40 mg/dL: Low HDL-cholesterol (major risk factor for CHD) >= 60 mg/dL: High HDL-cholesterol (negative risk factor for CHD) HDL-cholesterol is affected by a number of factors, e.g. smoking, exercise, hormones, sex and age. Performed By: #### L 500.4100, L500.4050, L100.0500 #### [facility] [address] [place], [address] Cholesterol in LDL [Mass/Vol] 144 mg/dL Normal [facility] Comment on above: Result Comment: Bord pufwdb=538-580 mg/dL Higher Vvhp=165 mg/dL or greater Performed By: #### L 500.4100, L500.4050, L100.0500 #### [facility] [address] [place], [address] Cholesterol in VLDL [Mass/Vol] 16 mg/dL Normal 5-40 [facility] Comment on above: Performed By: #### L 500.4100, L500.4050, L100.0500 #### [facility] [address] [place], [address] Triglyceride [Mass/Vol] 78 mg/dL Normal [facility] Comment on above: Result Comment: The drugs N-Acetylcysteine and Metamizole may falsely depress this assay. Normal range: <150 mg/dL Borderline High: 150-199 mg/dL High: 200-499 mg/dL Very High: >500 mg/dL Performed By: #### L 500.4100, L500.4050, L100.0500 #### [facility] [address] [place], [address] MCV (mean corpuscular volume ) determinationOrdered By: Rachana Gu on 12-01-2024 MCV (RBC) [Entitic vol] 90.4 fL 81-99 [facility] Mean corpuscular hemoglobin (MCH) determinationOrdered By: Rachana Gu on 12-01-2024 MCH (RBC) [Entitic mass] 30.4 pg 27.0-32.0 [facility] Mean corpuscular hemoglobin concentration (MCHC) determinationOrdered By: Rachana Gu on 12-01-2024 MCHC (RBC) [Mass/Vol] 33.6 g/dL 32-36 [facility] Mean platelet volume determi nationOrdered By: Rachana Gu on 12-01-2024 Platelet mean volume (Bld) [Entitic vol] 8.6 fL 6.2-12.0 [facility] Platelet countOrdered By: Bart Gu on 12-01-2024 Platelets (Bld) [#/Vol] 341 10*3/uL 150-450 [facility] Potassium (Unsp spec) [Mass/ Vol]Ordered By: Rachana Gu on 12-01-2024 Potassium [Moles/Vol] 4.3 mmol/L 3.3-5.1 [facility] Potassium measurement (mass/ volume)Ordered By: Rachana Gu on 12-01-2024 Potassium (Unsp spec) [Mass/Vol] 4.3 mmol/L 3.3-5.1 [facility] RBC Auto (Bld) [#/Vol]Ordere d By: Rachana Gu on 12-01-2024 RBC (Bld) [#/Vol] 4.70 10*6/uL 4.2-5.4 [facility] Screening total cholesterol/ high density lipoprotein (HDL) cholesterol ratioOrdered By: Rachana Gu on 12-01-2024 Cholesterol.total/Lelo sterol in HDL [Mass ratio] 3.97 {ratio} [facility] Serum creatinine measurement (mass/volume)Ordered By: Rachana Gu on 12-01-2024 Creatinine [Mass/Vol] 0.89 mg/dL 0.70-1.20 [facility] Serum globulin measurementOr dered By: Rachana Gu on 12-01-2024 Globulin (S) [Mass/Vol] 3.1 g/dL 2.2-4.2 [facility] Serum glucose measurement (m ass/volume)Ordered By: Rachana Gu on 12-01-2024 Glucose [Mass/Vol] 87 mg/dL 70-99 [facility] Serum or plasma alanine morse otransferase (ALT) measurementOrdered By: Rachana Gu on 12-01-2024 ALT [Catalytic activity/Vol] 18 U/L <35 [facility] Serum or plasma albumin paul urement (mass/volume)Ordered By: Rachana Gu on 12-01-2024 Albumin [Mass/Vol] 4.8 g/dL 3.5-5.0 [facility] Serum or plasma albumin/glob ulin mass ratioOrdered By: Rachana Gu on 12-01-2024 Albumin/Globulin [Mass ratio] 1.5 {ratio} 0.9-2.4 [facility] Serum or plasma alkaline deb sphatase measurementOrdered By: Rachana Gu on 12-01-2024 ALP [Catalytic activity/Vol] 55 U/L 35-104 [facility] Serum or plasma calcium paul urement (mass/volume)Ordered By: Rachana Gu on 12-01-2024 Calcium [Mass/Vol] 9.6 mg/dL 7.6-11.0 [facility] Serum or plasma cholesterol in HDL measurement (mass/volume)Ordered By: Rachana Gu on 12-01-2024 Cholesterol in HDL [Mass/Vol] 54 mg/dL >40 [facility] Comment on above: National Cholesterol Education Program (NCEP) guidelines:<40 mg/dL: Low HDL-cholesterol (major risk factor for CHD)>= 60 mg/dL: High HDL-cholesterol (negative risk factor for CHD)HDL-cholesterol is affected by a number of factors, e.g. smoking, exercise, hormones, sex and age. Serum or plasma cholesterol measurement (mass/volume)Ordered By: Rachana Gu on 12-01-2024 Cholesterol [Mass/Vol] 213 mg/dL High <201 [facility] Comment on above: Cholesterol level, D esirable <200 mg/dLBorderline high cholesterol 200-239 mg/dLHigh cholesterol >=240 mg/dLRecommendations of the NCEP Adult Treatment Panel for the following risk-cutoff thresholds for the [place] population. Serum or plasma urea nitroge n measurement (mass/volume)Ordered By: Rachana Gu on 12-01-2024 Urea nitrogen [Mass/Vol] 12 mg/dL 4-19 [facility] Sodium levelOrdered By: Letty Gu on 12-01-2024 Sodium [Moles/Vol] 139 mmol/L 133-145 [facility] Total proteinOrdered By: Elyssa Gu on 12-01-2024 Protein [Mass/Vol] 7.9 g/dL 5.9-8.4 [facility] Triglycerides measurementOrd ered By: Rachana Gu on 12-01-2024 Triglyceride [Mass/Vol] 78 mg/dL <199 [facility] Comment on above: The drugs N-Acetylcy steine and Metamizole may falsely depress this assay. Normal range: <150 mg/dLBorderline High: 150-199 mg/dLHigh: 200-499 mg/dLVery High: >500 mg/dL White blood cell (WBC) count Ordered By: Rachana Gu on 12-01-2024 WBC (Bld) [#/Vol] 8.8 10*3/uL 4.4-11.0 [facility] Office Visiton 11-28-2024 Follow-up visit [id number] Chayo Acharya 1995 F Date Provider Department Center 11/28/2024 [id number] GU [facility] Family History Problem Relation Age of Onset Ovarian cancer Paternal Grandmother Comments: 80s Heart disease Father Colon cancer Neg Hx Breast cancer Neg Hx Uterine cancer Neg Hx Family Status - Relation Status Age at Paternal Grandmother Father Alive Mother Alive Neg Hx Level of Service:37365 ME PERIODIC PREVENTIVE MED EST PATIENT 18-39 YRS Reason for Visit and Comments: Annual Exam [83] Blood Work [918926] Health Maintenance [872] - Tdap- had one at work, thinks she had in 2021 Flu- declines 3rd Covid- not done Normal [facility] Progress Noteon 11-28-2024 Progress Note Patient verified by last name and . Normal [facility] Progress Note [facility] [address] [facility] [address] Dept: [phone] Dept Loc: [phone] HPI: Chayo Acharya is a 29 y.o. female who presents today for her medical conditions/complaints as noted below. Chayo Acharya is c/o of Annual Exam, Blood Work, and Health Maintenance (Tdap- had one at work, thinks she had in 2021 /Flu- declines /3rd Covid- not done ) HPI- Chayo presents today for her annual physical and fasting blood work. 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 Will use once every 2-3 months. Depression/Anxiety: Feels symptoms are well controlled overall. Has not needed her PRN Hydroxyzine. IBS-C&D: Feels symptoms are well controlled. Not currently following up with GI and does not need medication. Exercise Induced Bronchospasm: Will use her albuterol inhaler before exercising and this works well for her. Health Maintenance: Declines to be vaccinated for Hep B. Declines screening for HIV. States she had a Tdap vaccination through her work- will fax over immunization record. Declines a flu vaccination. Vaccinated for COVID-19 x2 with most recent dose on 07/30/21- declines additional doses. Pap smear: 01/10/24- sees an Ruffling Machine Operator. See ROS for additional information. Past Medical History: Diagnosis Date Acute non-recurrent maxillary sinusitis Allergic rhinitis, cause unspecified Anxiety Asthma Depression Dysuria Exercise induced bronchospasm H/O cold sores Irregular menstrual bleeding Irritable bowel syndrome Other acne Other malaise and fatigue Urinary frequency Past Surgical History: Procedure Laterality Date WISDOM TOOTH EXTRACTION Family History Problem Relation Name Age of Onset Ovarian cancer Paternal Grandmother 80s Heart disease Father Alban [place] Colon cancer Neg Hx Breast cancer Neg Hx Uterine cancer Neg Hx Social History Tobacco Use Smoking status: Never Smokeless tobacco: Never Substance Use Topics Alcohol use: Yes Comment: socially Current Outpatient Medications Medication Sig Dispense Refill albuterol 108 (90 Base) MCG/ACT inhaler Inhale 2 puffs every 6 hours as needed for wheezing or shortness of breath. 18 g 1 Vit-DSS-Fe Cbn-FA ( AD PO) Take by mouth. valACYclovir (Valtrex) 1 g tablet TAKE TWO TABLETS BY MOUTH TWICE DAILY FOR ONE DAY 12 tablet 1 No current facility-administered medications for this visit. No Known Allergies Health Maintenance Topic Date Due DTaP/Tdap/Td Vaccines (2 - Td or Tdap) 10/24/2022 Influenza Vaccine (1) 05/18/2024 COVID-19 Vaccine (3 - season) 2024 Hepatitis B Vaccines (1 of 3 - 19+ 3-dose series) 11/29/2024 (Originally 2013) HIV Screening 11/29/2024 (Originally 1995) Depression Monitoring 05/29/2025 Cervical Cancer Screening 01/09/2027 Zoster Vaccines (1 of 2) 2044 RSV Immunization for Adults (1 - 1-dose 75+ series) 2069 MMR Vaccines Completed Hepatitis C Screening Completed RSV Immunization under 20 Months Aged Out HIB Vaccines Aged Out IPV Vaccines Aged Out Hepatitis A Vaccines Aged Out Meningococcal Vaccine Aged Out Rotavirus Vaccines Aged Out HPV Vaccines Aged Out Pneumococcal Vaccine: Pediatrics (0 to 5 Years) and At-Risk Patients (6 to 49 Years) Aged Out Varicella Vaccines Discontinued Subjective: Review of Systems Constitutional: Negative for chills and fever. HENT: Negative for hearing loss and trouble swallowing. Eyes: Negative for pain and visual disturbance. Respiratory: Negative for cough, chest tightness, shortness of breath and wheezing. Cardiovascular: Negative for chest pain, palpitations and leg swelling. Gastrointestinal: Negative for abdominal distention, abdominal pain, blood in stool, constipation and diarrhea. Endocrine: Negative for polydipsia, polyphagia and polyuria. Genitourinary: Negative for dysuria and hematuria. Musculoskeletal: Negative for arthralgias and myalgias. Skin: Negative for color change, pallor, rash and wound. Neurological: Negative for dizziness, syncope, weakness, light-headedness and headaches. Hematological: Does not bruise/bleed easily. Psychiatric/Behavioral: Positive for dysphoric mood. Negative for self-injury and suicidal ideas. The patient is nervous/anxious. Objective: BP 100/72 (BP Location: Left arm, Patient Position: Sitting) Pulse 67 Ht 5' 3 (1.6 m) Wt 156 lb 9.6 oz (71 kg) SpO2 98% BMI 27.74 kg/m? Last 3 PERLA-7 Scores 11/28/2024 0800 PERLA-7 Total Score: 4 Last 3 PHQ-2 Scores 11/28/2024 0809 11/26/2024 0815 Patient Health Questionnaire-2 Score: 2 2 Last 3 PHQ-9 Scores 11/28/2024 0809 Patient Health Questionnaire-9 Score: 7 Physical Exam Constitutional: Oriented to person, place, and time. Appears well-developed and well-nourished. No distress. HENT: Head: Normocephalic a (more content not included)... Normal [facility] HCG ( test) QlOrder ed By: Kathrin Devine on 11-12-2024 Human Chorionic Gonadotropin, Quant < 1 mIU/mL <9 [facility] Comment on above: Gestational Age0.2-1 Week: 5-50 mIU/mL1-2 Weeks: 50-500 mIU/mL2-3 Weeks: 100-5000 mIU/mL3-4 Weeks: 500-10,000 mIU/mL4-5 Weeks:1000-50,000 mIU/mL5-6 Weeks: 10,000-100,000 mIU/mL6-8 Weeks: 15,000-200,000 mIU/mL2-3 Months:10,000-100,000 mIU/mL Serum human chorionic gonado tropin detection for pregnancyOrdered By: Kathrin Devine on 11-12-2024 HCG ( test) Ql < 1 mIU/mL <9 [facility] Comment on above: Gestational Age0.2-1 Week: 5-50 mIU/mL1-2 Weeks: 50-500 mIU/mL2-3 Weeks: 100-5000 mIU/mL3-4 Weeks: 500-10,000 mIU/mL4-5 Weeks:1000-50,000 mIU/mL5-6 Weeks: 10,000-100,000 mIU/mL6-8 Weeks: 15,000-200,000 mIU/mL2-3 Months:10,000-100,000 mIU/mL hCG Titer Quant., Serumon HCG QUANT. < 1 Normal <9 non-preg [facility] Comment on above: Result Comment: Gest ational Age 0.2-1 Week: 5-50 mIU/mL 1-2 Weeks: 50-500 mIU/mL 2-3 Weeks: 100-5000 mIU/mL 3-4 Weeks: 500-10,000 mIU/mL 4-5 Weeks:1000-50,000 mIU/mL 5-6 Weeks: 10,000-100,000 mIU/mL 6-8 Weeks: 15,000-200,000 mIU/mL 2-3 Months:10,000-100,000 mIU/mL Performed By: #### L 500.4100, L500.4050, L100.0500 #### [facility] [address] [place], [place], [address] 36on 09-15-2024 36 Noted. Normal [facility] 36on 09-08-2024 36 This was done at [facility]. Normal [facility] 36 We have been unable to reach your patient to schedule their testing. Test Name: US abdomen limited 2nd Attempt: LVM/ canceled request [facility] Abdomen Limitedon 08-18-2024 Abdomen Limited [facility] [address] [place] [address] Abdomen Limited MR#: [id number] Acct: [id number] Name: CHAYO ACHARYA Rep #: [id number] : 1995 F 28 From: Ras Coates MD PCP: ANNEMARIE Dockery Status: REG CLI Study: Abdomen Limited Date of Exam: 08/18/24 Exam# [id number] Ordering Dr: Deyanira Gonzalez-Hans [id number] EXAM: US Abdomen Limited (quadrant) HISTORY: LEFET UPPER QUADANT ABDOMINAL PAIN COMPARISON: None FINDINGS: Limited sonographic evaluation of the left upper quadrant shows a normal-appearing spleen measuring 9.6 cm. 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 Left kidney is free of obstructive uropathy, measuring 10.8 cm. US/Abdomen Limited IMPRESSION: Sonographically normal spleen and left kidney Electronically Signed: Gerry Coates MD at 12:36 EST , CC: ANNEMARIE Gu; REGISTRY NURSE-C Deyanira Gonzalez Gauge And Weigh Machine Adjuster: Signed Normal [facility] 37on 07-30-2024 37 Please call Central Scheduling at [phone] to schedule your outpatient test Normal [facility] Office Visiton 07-30-2024 Follow-up visit [id number] Chayo Acharya 1995 F Date Provider Department Center 07/30/2024 [id number] GONZALEZ [facility] Family History Problem Relation Age of Onset Ovarian cancer Paternal Grandmother Comments: 80s Colon cancer Neg Hx Breast cancer Neg Hx Heart disease Father Uterine cancer Neg Hx Family Status - Relation Status Age at Paternal Grandmother Neg Hx Father Alive Mother Alive Level of Service:80361 ME OFFICE/OUTPATIENT ESTABLISHED [facility] 20 MIN Reason for Visit and Comments: Chest Pain [368718] - Rib pain-started 1.5 yrs ago Itching [991303] - Left rib cage under left breast Nausea [70] Normal [facility] Progress Noteon 07-30-2024 Progress Note No concern for acute abdomen. Most likely musculoskeletal. Intermittent and triggered with certain movements. Will obtain ultrasound of the left upper quadrant to further evaluate. Most likely benign. Normal [facility] Progress Note 07/30/2024 Chayo Acharya (: 1995) is a 28 y.o. female , Established patient, here for evaluation of the following chief complaint(s): Chest Pain (Rib pain-started 1.5 yrs ago), Itching (Left rib cage under left breast ), and Nausea ASSESSMENT/PLAN: 1. Left upper quadrant abdominal pain Assessment & Plan: No concern for acute abdomen. Most likely musculoskeletal. Intermittent and triggered with certain movements. Will obtain ultrasound of the left upper quadrant to further evaluate. Most likely benign. Orders: - US abdomen limited Follow up for as directed pending test results. SUBJECTIVE/OBJECTIVE: HPI - Chayo Acharya (: 1995) is a 28 y.o. female , Established patient, here for the evaluation of the following chief complaint(s): Chest Pain (Rib pain-started 1.5 yrs ago), Itching (Left rib cage under left breast ), and Nausea Feels it when moving a certain way, twisting, not painful, sometimes feels sore. Itching sometimes. Sometimes gets nausea with it (thinks it might be making her worried. Appetite ok. Feels more like something popping or moving States she notices it more at night when she is turning in bed. Feels fine otherwise Prior to Admission medications Medication Sig Start Date End Date Taking? Authorizing Provider albuterol 108 (90 Base) MCG/ACT inhaler Inhale 2 puffs every 6 hours as needed for wheezing or shortness of breath. 10/26/23 Yes THELMA Cadena CNP Vit-DSS-Fe Cbn-FA ( AD PO) Take by mouth. Yes Historical Provider, valACYclovir (Valtrex) 1 g tablet TAKE TWO TABLETS BY MOUTH TWICE DAILY FOR ONE DAY 07/07/24 Yes THELMA Cadena CNP sertraline (Zoloft) 25 MG tablet Take 1 tablet (25 mg) by mouth daily. 12/20/23 02/18/24 THELMA Zepeda CNP Review of Systems Constitutional: Negative for activity change, chills, fatigue and fever. Respiratory: Negative. Cardiovascular: Negative. Gastrointestinal: Negative. Left upper abdominal discomfort with certain movements Genitourinary: Negative. Negative for menstrual problem (irregular- sees ob/gy). Neurological: Negative. Psychiatric/Behavioral: Negative. Vitals: 07/30/24 1157 BP: 106/72 Pulse: 76 Resp: 20 Temp: 37 ?C (98.6 ?F) TempSrc: Infrared SpO2: 97% Weight: 157 lb 12.8 oz (71.6 kg) Physical Exam Constitutional: General: She is not in acute distress. Appearance: Normal appearance. She is not ill-appearing. HENT: Head: Normocephalic and atraumatic. Cardiovascular: Rate and Rhythm: Normal rate and regular rhythm. Pulmonary: Effort: Pulmonary effort is normal. Breath sounds: Normal breath sounds. Abdominal: General: Abdomen is flat. Bowel sounds are normal. Palpations: Abdomen is soft. Tenderness: There is abdominal tenderness. There is no guarding or rebound. Negative signs include Worthy's sign. Hernia: No hernia is present. Comments: No skin changes noted. Skin: General: Skin is warm and dry. Neurological: Mental Status: She is alert and oriented to person, place, and time. An electronic signature was used to authenticate this note. Deyanira Gonzalez, APPLICATIONS PROGRAMMER ANALYST - CARBURETOR SPECIALIST 07/30/2024 1:15 PM [facility] Progress Note Patient was identifi ed by name and Date of . [facility] 36on 07-07-2024 36 Rx sent. Follow up a s scheduled. [facility] 36 Prescription Request : Last medication check: 02/01/22 Last physical exam: 11/30/23 Next scheduled appointment: 11/28/24 Last date of refill on this medication: 07/06/23 [facility] Cervical or vagninal specime n microscopic examination by cytology stain (reported asOrdered By: Kathrin Devine on 01-10-2024 Cytology report Cyto stain Doc (Cvx/Vag) Comment . [facility] Comment on above: The Pap smear is a s creening test designed to aid in thedetection of premalignant and malignant conditions of theuterine cervix. It is not a diagnostic procedure andshould not be used as the sole means of detecting cervicalcancer. Both false-positive and false-negative reports dooccur. Laboratory - CytologyOrdered By: Kathrin Devine on 01-10-2024 Tire Inspector Cyto stain Nom (Cvx/Vag) [ID] Comment . [facility] Comment on above: Hans Lemos ytotechnologist (ASCP) Laboratory - Miscellaneous t estsOrdered By: Kathrin Devine on 01-10-2024 Service comment (Unsp spec) [Interp] . . [facility] No Panel InformationOrdered By: Kathrin Devine on 01-10-2024 Human Papillomavirus Screen Comment . [facility] Comment on above: The HPV DNA reflex hans cárdenas were not met with this specimenresult therefore, no HPV testing was performed.Performed at: [address] [id number] Director: Kathy Webb MD, Phone: [phone] Thin prep Papanicolaou smear with manual screeningOrdered By: Kathrin Devine on 01-10-2024 Thin prep Papanicolaou smear with manual screening Comment . [facility] Comment on above: NEGATIVE FOR INTRAEP ITHELIAL LESION OR MALIGNANCY. This liquid based Th inPrep(R) pap test was screened withthe use of an image guided system. Serum or plasma choriogonado tropin detectionOrdered By: Kathrin Devine on 11-06-2022 HCG ( test) Ql < 1 mIU/mL <4 [facility] Comment on above: hCG levels with Gest ational AgeGestational Age hCG mIU/mL (IU/L)0.2 - 1 week 5 - 501-2 weeks 50 - 5002-3 weeks 100 - 89576-0 weeks 500 - 859064-7 weeks 1000 - 931799-1 weeks 30369 - 100,0006-8 weeks 37337 - 200,0002-3 months 17136 - 100,000 Laboratory - Microbiology an d Antimicrobial susceptibilityon 08-29-2022 SARS-CoV-2 (COVID-19) RNA JYOTI+probe Ql (Unsp spec) Not detected [facility] Serum or plasma choriogonado tropin detectionon 07-03-2022 HCG ( test) Ql < 1 mIU/mL <4 [facility] Work Phone: Comment on above: hCG levels with Gest ational AgeGestational Age hCG mIU/mL (IU/L)0.2 - 1 week 5 - 501-2 weeks 50 - 5002-3 weeks 100 - 49776-2 weeks 500 - 877610-8 weeks 1000 - 464918-0 weeks 14667 - 100,0006-8 weeks 42487 - 200,0002-3 months 81190 - 100,000 Laboratory - Chemistry and C hemistry - challengeon 01-05-2022 Free T4 [Mass/Vol] 1.04 ng/dL 0.76-1.46 [facility] Work Phone: No Panel Informationon 01-05 Thyroglobulin Antibody < 1.0 IU/mL [facility] Work Phone: Comment on above: Thyroglobulin Antibo dy measured by Wai CoulterMethodologyPerformed at: CB - [facility] [address] [id number] Director: Bala Campo PhD, Phone: [phone] Thyroid Stimulating Hormone (TSH) 2.08 uIU/mL 0.358-3.74 [facility] Work Phone: Serum or plasma thyroperoxid ase antibody assay (units/volume)on 01-05-2022 TPO Ab Qn [IU]/mL [facility] Work Phone: RF Hysterosalpingography S/I on 12-28-2021 RF Hysterosalpingography S/I Patient Name: CHAYO ACHARYA Fluoroscopy ACCESSION EXAM DATE/TIME PROCEDURE ORDERING PROVIDER [id number] 12/28/2021 12:25 EDT RF Hysterosalpingography KWAME RODRIGUEZ S/I CPT code 08827 Reason For Exam (RF Hysterosalpingography S/I) dysmenorrhea Report HYSTEROSALPINGOGRAM CLINICAL INDICATION:Infertility. COMPARISON: None. FLUOROSCOPY TIME: 0.7 minutes FLUOROSCOPIC SPOT IMAGES: 5 TECHNIQUE: The procedure was performed by Dr. Blum. Fluoroscopic assistance was provided. Spot images were obtained during fluoroscopy. FINDINGS: The fallopian tubes are normal in appearance. There is bilateral peritoneal spilling of contrast. The uterine cavity is unremarkable. IMPRESSION: Bilateral tubal patency. Report Dictated on Final Dictated: 12/28/2021 12:49 pm Dictating Physician: MD THORPE JOHN Signed Date and Time: 12/28/2021 3:50 pm Signed by: MD THORPE JOHN Transcribed Date and Time: 12/28/2021 12:49 Normal [facility] Basophil percentageon 2021 C. trachomatis DNA JYOTI+probe Ql (Unsp spec) Negative Negative [facility] Work Phone: Cholesterol [Mass/Vol] 208 mg/dL <200 [facility] Work Phone: Comment on above: <200 mg/dL Desirable 200-240 mg/dL Borderline >240 mg/dL High Risk Testosterone [Mass/Vol] 25.06 ng/dL [facility] Work Phone: Comment on above: CENTRAL 90% REFERENC E RANGES MALE AGE <50 197.44 - 669.58 ng/dL MALE AGE > or = 50 187.72 - 684.19 ng/dL FEMALE AGE <50 8.38 - 35.01 ng/dL FEMALE AGE > or = 50 <7.00 - 35.92 ng/dL Effective as of 04/12/21 Triglyceride [Mass/Vol] 89 mg/dL [facility] Work Phone: Comment on above: The drugs N-Acetylcy steine and Metamizole may falsely depress this assay.Serum Triglycerides Reference Interval Normal <150 mg/dL Borderline high 150 - 199 mg/dL High 200 - 499 mg/dL Very High > or = 500 mg/dL HIV 1 and HIV-2 antibody ass ay with HIV-1 p24 antigen detectionon 12-26-2021 HIV 1+2 Ab+HIV1 p24 Ag IA Ql Non-Reactive Nonreactive [facility] Work Phone: Neisseria gonorrhoeae detect ion by PCRon 12-26-2021 N. gonorrhoeae DNA JYOTI+probe Ql (Cervical mucus) Negative Negative [facility] Work Phone: No Panel Informationon 12-26 Glucose 2 Hour See comment [facility] Work Phone: Comment on above: FASTING 93 Col: 12/16 10/08 0706 30 min GLU 142 Col: 12/26/21 0746 60 min GLU 68 L Col: 12/26/21 0816 120min GLU 62 L Col: 12/26/21 0916 Dehydroepiandrosterone Sulfate 143.0 ug/dL [facility] Work Phone: Hepatitis B Surface Antigen Non-Reactive Nonreactive [facility] Work Phone: Hepatitis C Antibody Non-Reactive Nonreactive [facility] Work Phone: Comment on above: Non Reactive: < 0.8 Equivocal: >/= 0.8 to < 1.0 Reactive: >/= 1.0The CDC recommends that a reactive/equivocal HCV antibody result be followed up by the HCV Nucleic Acid Amplificationtest (860376) Rubella IgG Antibody Reactive Nonreactive [facility] Work Phone: Comment on above: Antibody Results Int erpretation of Immune Status Non Reactive Presumed Non-Immune Equivocal Equivocal Reactive Presumed Immune Thyroid Stimulating Hormone (TSH) 3.13 uIU/mL 0.358-3.74 [facility] Work Phone: Serum Treponema species anti body detectionon 12-26-2021 Treponema sp Ab Ql (S) Non-Reactive [facility] Work Phone: Serum Varicella zoster virus IgG antibody assay by immunoassay (units/volume)on 12-26-2021 VZV IgG IA Qn (S) 449 index Immune >165 [facility] Work Phone: Comment on above: Negative <135 Equivo renetta 135 - 165 Positive >165A positive result generally indicates exposure to thepathogen or administration of specific immunoglobulins,but it is not indication of active infection or stageof disease.Performed at: [employer] [address] [id number] Director: Bala Campo PhD, Phone: [phone] Serum or plasma 17-hydroxypr ogesterone measurement (mass/volume)on 12-26-2021 17-Hydroxyprogesterone [Mass/Vol] 64 ng/dL [facility] Work Phone: Comment on above: Adult Female Follicu lar 15 - 70 Luteal 35 - 290Performed at: [employer] [address] [id number] Director: Armond Babcock MD, Phone: [phone] Serum or plasma cholesterol in HDL measurement (mass/volume)on 12-26-2021 Cholesterol in HDL [Mass/Vol] 56 mg/dL [facility] Work Phone: Comment on above: The drugs N-Acetylcy steine and Metamizole may falsely depress this assay. Reference Range HDL <40 mg/dL Low HDL Cholesterol HDL >or= 60 mg/dL High HDL Cholesterol Serum or plasma cholesterol in VLDL measurement (mass/volume)on 12-26-2021 Cholesterol in VLDL [Mass/Vol] 18 mg/dL 5-40 [facility] Work Phone: Serum or plasma low density lipoprotein (LDL) cholesterol measurement (mass/volume)on 12-26-2021 Cholesterol in LDL [Mass/Vol] 134 mg/dL 0-130 [facility] Work Phone: Serum or plasma prolactin me asurement (mass/volume)on 12-26-2021 Prolactin [Mass/Vol] 25.1 ng/mL [facility] Work Phone: Comment on above: NORMAL REFERENCE RAN GES FEMALE NON- 2.2 - 30.3 ng/mL 8.1 - 347.6 ng/mL POST-MENOPAUSAL 0.7 - 31.5 ng/mL MALE 2.5 - 17.4 ng/mL Laboratory - Microbiology an d Antimicrobial susceptibilityon 10-18-2021 SARS-CoV-2 (COVID-19) RNA JYOTI+probe Ql (Unsp spec) Not detected [facility] Work Phone: No Panel Informationon 10-18 Influenza Types A,B Rapid (Clinic) Not detected [facility] Work Phone: NM Hepatobiliary System w/ P ureña 04-27-2017 NM Hepatobiliary System w/ Pharm Patient Name: CHAYO ACHARYA Nuc Med Exam Date/Time 04/27/2017 11:41:38 EDT Exam NM Hepatobiliary Duct System Imaging Ordering Physician MD MARIANO, MARK EVANS Accession Number [id number] CPT4 Codes 50828 () Reason For Exam ruq pain Report HISTORY: Right upper quadrant pain Following the intravenous administration of 2.9 mCi Tc-99m Choletec a hepatobiliary study was performed. Images were then acquired over the abdomen in the anterior projection. Subsequently, the patient was given 8 ounces of Ensure Plus. Dynamic images with NAVEEN over the gallbladder for 60 minutes was used to calculate the gallbladder ejection. FINDINGS: Normal radiopharmaceutical uptake is demonstrated within the liver, with excretion into the biliary tree. Activity is demonstrated within the gallbladder within 60 minutes. Tracer also passes into the small bowel. Using NAVEEN activity, the gallbladder ejection fraction was calculated at 61 percent following administration of 8 oz. Ensure Plus (normal above 33%). IMPRESSION: No evidence of cystic duct or common bile duct obstruction. Normal gallbladder ejection fraction of 61 percent following fatty meal administration. Due to recurrent shortages of sincalide (Kinevac), this study utilized a fatty meal as an alternative to stimulate gallbladder contraction. The lower range of normal for GBEF at 60 minutes using 8 oz. of Ensure Plus is 33% as described in the reference below: Ambrocio FINNEGAN, John DA, Hiwot LR, Barrett KA. Cholecystokinin cholescintigraphy: methodology and normal values using a lactose-free fatty-meal food supplement. J Nucl Med. 2003;[id number]:1263\X2013\1266. Report Dictated on Final Dictating Physician: DO KOO ANTHONY Signed Date and Time: 04/27/2017 11:57 am Signed by: DO KOO ANTHONY Transcribed Date and Time: 04/27/2017 11:58 Normal [facility] US Abdomen Completeon 2016 US Abdomen Complete Patient Name: CHAYO ZURITA Ultrasound Exam Date/Time 04/11/2017 09:51:27 EDT Exam US Abdomen Complete Ordering Physician JACLYN GU HOLLY S Accession Number [id number] CPT4 Codes 08133 () Reason For Exam generalized abdominal pain; worse in right upper quadrant referring to back Report Reason for examination: Abdominal pain worse on right side. A sonogram of the abdomen is performed. The pancreas is homogeneous. No obvious pancreatic mass or peripancreatic fluid collection is identified. The liver is normal in size and echogenicity. No focal hyper or hypoechoic masses are seen. There is no intrahepatic biliary ductal dilatation. The gallbladder is normally distended. There are no shadowing gallstones. There is a tiny 2 mm gallbladder polyp. The common bile duct is 3.8 mm in diameter. There are no pericholecystic fluid collections. The spleen is normal in size and echogenicity. 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 The right kidney is 11.2 cm in length. Left kidney is 11.9 cm in length. There is no hydronephrosis or obvious mass or shadowing calculus. The IVC and abdominal aorta where visualized are normal in caliber. There is no ascites. IMPRESSION: 2 mm gallbladder polyp. The liver, biliary tree, pancreas, kidneys and spleen are within normal limits. Report Dictated on Final Dictating Physician: MD BAUMAN LAUREN B Signed Date and Time: 04/11/2017 10:51 am Signed by: MD BAUMAN LAUREN B Transcribed Date and Time: 04/11/2017 10:52 Normal [facility] Vital Signs Date Time Vital Sign Value Performing Clinician Marini inocente 04-30-2025 15:15-0400 Body temperature 98 [degF] Rachana Gu REGISTRY NURSE-C Work Phone: [facility] 04-30-2025 15:15-0400 Diastolic blood pressure 87 mm[Hg] Rachana Gu REGISTRY NURSE-C Work Phone: [facility] 04-30-2025 15:15-0400 Heart rate 71 /min Rachana Gu REGISTRY NURSE-C Work Phone: [facility] 04-30-2025 15:15-0400 Respiratory rate 14 /min Rachana Gu REGISTRY NURSE-C Work Phone: [facility] 04-30-2025 15:15-0400 SaO2% (BldA) [Mass fraction] 100 % Rachana Gu REGISTRY NURSE-C Work Phone: [facility] 04-30-2025 15:15-0400 Systolic blood pressure 115 mm[Hg] Rachana Gu REGISTRY NURSE-C Work Phone: [facility] 04-30-2025 11:45-0400 Body height 157.48 cm Rachana Gu REGISTRY NURSE-C Work Phone: [facility] 04-30-2025 11:45-0400 Body mass index (BMI) [Ratio] 27.8 kg/m2 Rachana Gu REGISTRY NURSE-C Work Phone: [facility] 04-30-2025 11:45-0400 Body weight 68.94 kg Rachana Gu REGISTRY NURSE-C Work Phone: [facility] 01-22-2025 09:30-0400 Body height 157.48 cm Rachana Gu REGISTRY NURSE-C Work Phone: [facility] 01-22-2025 09:29-0400 Body mass index (BMI) [Ratio] 28.4 kg/m2 Rachanaalysia Gu REGISTRY NURSE-C Work Phone: [facility] 01-22-2025 09:29-0400 Body weight 70.47 kg Rachana Jaren REGISTRY NURSE-C Work Phone: [facility] 01-22-2025 09:29-0400 Diastolic blood pressure 77 mm[Hg] Rachana Gu REGISTRY NURSE-C Work Phone: [facility] 01-22-2025 09:29-0400 Systolic blood pressure 115 mm[Hg] Rachanaalysia Gu REGISTRY NURSE-C Work Phone: [facility] 11-28-2024 07:50-0400 Body height 160 cm Rachanaalysia Gu APPLICATIONS PROGRAMMER ANALYST - CARBURETOR SPECIALIST Work Phone: [facility] 11-28-2024 07:50-0400 Body mass index (BMI) [Ratio] 27.74 kg/m2 Rachana Jaren APPLICATIONS PROGRAMMER ANALYST - CARBURETOR SPECIALIST Work Phone: [facility] 11-28-2024 07:50-0400 Body weight 71.03 kg Rachana Jaren APPLICATIONS PROGRAMMER ANALYST - CARBURETOR SPECIALIST Work Phone: [facility] 11-28-2024 07:50-0400 Diastolic blood pressure 72 mm[Hg] Rachana Gu APPLICATIONS PROGRAMMER ANALYST - CARBURETOR SPECIALIST Work Phone: [facility] 11-28-2024 07:50-0400 Heart rate 67 /min Rachana Jaren APPLICATIONS PROGRAMMER ANALYST - CARBURETOR SPECIALIST Work Phone: [facility] 11-28-2024 07:50-0400 SaO2% (BldA) [Mass fraction] 98 % Rachanaalysia Gu APPLICATIONS PROGRAMMER ANALYST - CARBURETOR SPECIALIST Work Phone: [facility] 11-28-2024 07:50-0400 Systolic blood pressure 100 mm[Hg] Rachana Gu APPLICATIONS PROGRAMMER ANALYST - CARBURETOR SPECIALIST Work Phone: [facility] 07-30-2024 11:57-0500 Body mass index (BMI) [Ratio] 27.95 kg/m2 Deyanira Shyamenthal APPLICATIONS PROGRAMMER ANALYST - CARBURETOR SPECIALIST Work Phone: [facility] 07-30-2024 11:57-0500 Body temperature 98.6 [degF] Deyanira Bridenthal APPLICATIONS PROGRAMMER ANALYST - CARBURETOR SPECIALIST Work Phone: [facility] 07-30-2024 11:57-0500 Body weight 71.58 kg Deyanira Bridenthal APPLICATIONS PROGRAMMER ANALYST - CARBURETOR SPECIALIST Work Phone: [facility] 07-30-2024 11:57-0500 Diastolic blood pressure 72 mm[Hg] Deyanira Bridenthal APPLICATIONS PROGRAMMER ANALYST - CARBURETOR SPECIALIST Work Phone: [facility] 07-30-2024 11:57-0500 Heart rate 76 /min Deyanira Bridenthal APPLICATIONS PROGRAMMER ANALYST - CARBURETOR SPECIALIST Work Phone: [facility] 07-30-2024 11:57-0500 Respiratory rate 20 /min Deyanira Bridenthal APPLICATIONS PROGRAMMER ANALYST - CARBURETOR SPECIALIST Work Phone: [facility] 07-30-2024 11:57-0500 SaO2% (BldA) [Mass fraction] 97 % Deyanira Shyamenthal APPLICATIONS PROGRAMMER ANALYST - CARBURETOR SPECIALIST Work Phone: [facility] 07-30-2024 11:57-0500 Systolic blood pressure 106 mm[Hg] Deyanira Shyamenthal APPLICATIONS PROGRAMMER ANALYST - CARBURETOR SPECIALIST Work Phone: [facility] 01-10-2024 13:13-0400 Body height 157.48 cm REGISTRY NURSEIda Gu REGISTRY NURSE Work Phone: [facility] 01-10-2024 13:06-0400 Body mass index (BMI) [Ratio] 27.8 kg/m2 ANNEMARIE Gu REGISTRY NURSE Work Phone: [facility] 01-10-2024 13:06-0400 Body weight 69.11 kg REGISTRY NURSEIda Gu REGISTRY NURSE Work Phone: [facility] 01-10-2024 13:06-0400 Diastolic blood pressure 72 mm[Hg] REGISTRY NURSEIda Gu REGISTRY NURSE Work Phone: [facility] 01-10-2024 13:06-0400 Systolic blood pressure 110 mm[Hg] REGISTRY NURSE-C Rachana Gu REGISTRY NURSE Work Phone: [facility] 11-30-2023 07:49-0400 Body height 160 cm Rachana Gu APPLICATIONS PROGRAMMER ANALYST - CARBURETOR SPECIALIST Work Phone: [facility] 11-30-2023 07:49-0400 Body mass index (BMI) [Ratio] 26.85 kg/m2 Rachana Gu APPLICATIONS PROGRAMMER ANALYST - CARBURETOR SPECIALIST Work Phone: [facility] 11-30-2023 07:49-0400 Body weight 68.77 kg Rachana Gu APPLICATIONS PROGRAMMER ANALYST - CARBURETOR SPECIALIST Work Phone: [facility] 11-30-2023 07:49-0400 Diastolic blood pressure 76 mm[Hg] Rachana Gu APPLICATIONS PROGRAMMER ANALYST - CARBURETOR SPECIALIST Work Phone: [facility] 11-30-2023 07:49-0400 Heart rate 62 /min Rachana Gu APPLICATIONS PROGRAMMER ANALYST - CARBURETOR SPECIALIST Work Phone: [facility] 11-30-2023 07:49-0400 SaO2% (BldA) [Mass fraction] 99 % Rachana Gu APPLICATIONS PROGRAMMER ANALYST - CARBURETOR SPECIALIST Work Phone: [facility] 11-30-2023 07:49-0400 Systolic blood pressure 112 mm[Hg] Rachana Gu APPLICATIONS PROGRAMMER ANALYST - CARBURETOR SPECIALIST Work Phone: [facility] 08-29-2022 12:46-0500 Body height 157.48 cm REGISTRY NURSE-C Rachana Gu REGISTRY NURSE Work Phone: [facility] 08-29-2022 12:44-0500 Body temperature 98.5 [degF] REGISTRY NURSE-C Rachana Gu REGISTRY NURSE Work Phone: [facility] 08-29-2022 12:44-0500 Diastolic blood pressure 80 mm[Hg] REGISTRY NURSE-C Rachana Gu REGISTRY NURSE Work Phone: [facility] 08-29-2022 12:44-0500 Heart rate 113 /min REGISTRY NURSE-C Rachana Gu REGISTRY NURSE Work Phone: [facility] 08-29-2022 12:44-0500 Respiratory rate 15 /min REGISTRY NURSE-C Rachana uG REGISTRY NURSE Work Phone: [facility] 08-29-2022 12:44-0500 SaO2% (BldA) [Mass fraction] 99 % REGISTRY NURSE-C Rachana Gu REGISTRY NURSE Work Phone: [facility] 08-29-2022 12:44-0500 Systolic blood pressure 110 mm[Hg] REGISTRY NURSE-C Rachana Gu REGISTRY NURSE Work Phone: [facility] 10-18-2021 13:14-0500 Body height 157.48 cm REGISTRY NURSE-C Rachana Gu REGISTRY NURSE Work Phone: [facility] Work Phone: 09-28-2021 14:20-0500 Body mass index (BMI) [Ratio] 24 kg/m2 REGISTRY NURSE-C Rachana Gu REGISTRY NURSE Work Phone: [facility] Work Phone: 09-28-2021 14:20-0500 Body weight 59.59 kg REGISTRY NURSE-C Rachana Gu REGISTRY NURSE Work Phone: [facility] Work Phone: 09-28-2021 14:20-0500 Diastolic blood pressure 90 mm[Hg] REGISTRY NURSE-C Rachana Gu REGISTRY NURSE Work Phone: [facility] Work Phone: 09-28-2021 14:20-0500 Systolic blood pressure 114 mm[Hg] REGISTRY NURSE-C Rachana Gu REGISTRY NURSE Work Phone: [facility] Work Phone: Encounters Encounter Date Encounter Type Care Provider Facility Start: 04-30-2025 End: 04-30-2025 Emergency department patient visit Rachana Gu REGISTRY NURSE-C Work Phone: -Emergency Department Work Phone: Start: 01-28-2025 End: 01-28-2025 ambulatory Rachana Gu REGISTRY NURSE-C Work Phone: [facility] Work Phone: Start: 01-28-2025 End: 01-28-2025 Patient encounter procedure Kathrin Devine REGISTRY NURSE-C -[facility] Work Phone: Start: 01-28-2025 End: 01-28-2025 ambulatory Kathrin Nilson REGISTRY NURSE Facility:[facility] Start: 01-22-2025 End: 01-22-2025 Patient encounter procedure Kathrin Devine REGISTRY NURSE-C -[facility] Work Phone: Start: 01-22-2025 End: 01-22-2025 Patient encounter status Kathrin Devine REGISTRY NURSE-C [facility] Start: 01-22-2025 End: 01-22-2025 ambulatory Kathrin Devine REGISTRY NURSE Facility:[facility] Start: 12-11-2024 End: 12-12-2024 Refill Rachana Gu APPLICATIONS PROGRAMMER ANALYST - CARBURETOR SPECIALIST Work Phone: [facility] Start: 12-05-2024 End: 12-05-2024 Telephone encounter Rachana Gu APPLICATIONS PROGRAMMER ANALYST - CARBURETOR SPECIALIST Work Phone: [facility] Comment on above: Results Start: 12-01-2024 End: 12-01-2024 ambulatory Rachana Gu REGISTRY NURSE-C Work Phone: [facility] Work Phone: Start: 12-01-2024 End: 12-01-2024 Patient encounter procedure Rachana Gu REGISTRY NURSE-C -Laboratory Work Phone: Start: 12-01-2024 End: 12-01-2024 ambulatory Rachana Gu REGISTRY NURSE Facility:[facility] Start: 11-28-2024 End: 11-28-2024 Patient encounter status Rachana Gu APPLICATIONS PROGRAMMER ANALYST - CARBURETOR SPECIALIST Work Phone: [facility] Work Phone: Start: 11-28-2024 End: 11-28-2024 Periodic preventive med est patient 18-39 yrs Rachana Gu APPLICATIONS PROGRAMMER ANALYST - CARBURETOR SPECIALIST Work Phone: [facility] Comment on above: Well adult exam (Ramona fitzgerald Dx); Recurrent cold sores; Anxiety and depression; Irritable bowel syndrome with both constipation and diarrhea; Exercise-induced bronchospasm; Screening for diabetes mellitus; Screening for lipoid disorders; Screening for deficiency anemia Start: 11-28-2024 End: 11-28-2024 ambulatory RACHANA GU [facility] Start: 11-28-2024 End: 11-28-2024 Encounter for general adult medical examination without abnormal findings RACHANA GU [facility] Start: 11-12-2024 End: 11-12-2024 ambulatory Rachana Gu REGISTRY NURSE-C Work Phone: [facility] Work Phone: Start: 11-12-2024 End: 11-12-2024 Patient encounter procedure Kathrin Devine REGISTRY NURSE-C -Laboratory Work Phone: Start: 11-12-2024 End: 11-12-2024 ambulatory Kathrin Devine REGISTRY NURSE Facility:[facility] Start: 09-08-2024 End: 09-08-2024 Telephone encounter Deyanira Gonzalez APPLICATIONS PROGRAMMER ANALYST - CARBURETOR SPECIALIST Work Phone: [facility] Central Scheduling Comment on above: Other (2nd attempt t o schedule) Start: 08-18-2024 End: 08-18-2024 Patient encounter procedure Deyanira Gonzalez REGISTRY NURSE-C -Ultrasound, [facility] Work Phone: Start: 08-18-2024 End: 08-18-2024 ambulatory Deyanira Samiral Facility:[facility] Start: 07-30-2024 End: 07-30-2024 Office outpatient visit 15 minutes Deyanira Gonzalez APPLICATIONS PROGRAMMER ANALYST - CARBURETOR SPECIALIST Work Phone: [facility] Comment on above: Left upper quadrant abdominal pain (Primary Dx) Start: 07-30-2024 End: 07-30-2024 ambulatory DEYANIRA SAMIRAL [facility] Start: 01-10-2024 End: 01-10-2024 ambulatory REGISTRY NURSE-C Rachana Gu REGISTRY NURSE Work Phone: [facility] Work Phone: Start: 01-10-2024 End: 01-10-2024 Patient encounter procedure REGISTRY NURSE-Hans Gu REGISTRY NURSE Work Phone: [facility]-Laboratory, Specimen Work Phone: Start: 01-10-2024 End: 01-10-2024 Patient encounter procedure REGISTRY NURSE-Hans Gu REGISTRY NURSE Work Phone: [facility] Work Phone: Start: 12-31-2023 End: 12-31-2023 ambulatory [facility] Work Phone: Start: 12-31-2023 End: 12-31-2023 Patient encounter procedure [facility]-Laboratory,Fut ure Work Phone: Start: 12-20-2023 End: 12-20-2023 Office outpatient visit 25 minutes Deyanira Gonzalez APPLICATIONS PROGRAMMER ANALYST - CARBURETOR SPECIALIST Work Phone: [facility] Comment on above: Viral URI with cough (Primary Dx); Other fatigue; Anxiety and depression Start: 12-19-2023 [facility]ulatory [facility] Start: 12-19-2023 Patient encounter [facility] Start: 11-30-2023 End: 11-30-2023 Patient encounter status Rachana Gu APPLICATIONS PROGRAMMER ANALYST - CARBURETOR SPECIALIST Work Phone: [facility] Work Phone: Start: 11-30-2023 End: 11-30-2023 Periodic preventive med est patient 18-39 yrs Rachana Gu APPLICATIONS PROGRAMMER ANALYST - CARBURETOR SPECIALIST Work Phone: [facility] Comment on above: Well adult exam (Ramona fitzgerald Dx); Recurrent cold sores; Moderate episode of recurrent major depressive disorder (HCC); Anxiety; Irritable bowel syndrome with both constipation and diarrhea; Exercise-induced bronchospasm; Screening for diabetes mellitus; Screening for lipoid disorders Start: 10-26-2023 Refill Mark Nuñez MD Work Phone: [facility] Comment on above: Exercise-induced bro nchospasm Start: 07-06-2023 Refill Rachana Gu APPLICATIONS PROGRAMMER ANALYST - CARBURETOR SPECIALIST Work Phone: [facility] Start: 01-11-2023 End: 01-11-2023 Office outpatient visit 15 minutes Deyanira Lisa APPLICATIONS PROGRAMMER ANALYST - CARBURETOR SPECIALIST Work Phone: [facility] Comment on above: Acute non-recurrent maxillary sinusitis (Primary Dx) Start: 11-28-2022 Refill Rachana Gu APPLICATIONS PROGRAMMER ANALYST - CARBURETOR SPECIALIST Work Phone: [facility] Start: 11-06-2022 End: 11-06-2022 ambulatory REGISTRY NURSE-Hans Gu REGISTRY NURSE Work Phone: [facility] Work Phone: Start: 11-06-2022 End: 11-06-2022 Patient encounter procedure REGISTRY NURSE-Hans Gu REGISTRY NURSE Work Phone: [facility]-Laboratory Start: 08-29-2022 End: 08-29-2022 Patient encounter procedure REGISTRY NURSE-Hans Gu REGISTRY NURSE Work Phone: [facility] Start: 07-03-2022 End: 07-03-2022 ambulatory [facility] Work Phone: Start: 07-03-2022 End: 07-03-2022 Patient encounter procedure [facility] Start: 01-05-2022 End: 01-05-2022 Patient encounter procedure REGISTRY NURSE-Hans Gu REGISTRY NURSE Work Phone: [facility]Labor[facility] Start: 12-26-2021 End: 12-26-2021 Patient encounter procedure REGISTRY NURSE-Hans Gu REGISTRY NURSE Work Phone: [facility]Labor[facility] Start: 10-18-2021 End: 10-18-2021 Patient encounter procedure REGISTRY NURSEIda Gu REGISTRY NURSE Work Phone: [facility] Start: 09-28-2021 End: 09-28-2021 Patient encounter procedure REGISTRY NURSE-C Rachana Gu REGISTRY NURSE Work Phone: [facility] Start: 04-27-2017 Ambulatory Mark Nuñez [facility] Start: 04-11-2017 Ambulatory UNKNOWN PROVIDER [facility] Procedures Date Procedure Procedure Detail Performing Clinician Start: 04-30-2025 CT angiography of ch est with contrast Rachana Gu REGISTRY NURSE-C Work Phone: Start: 04-30-2025 X-ray of chest, PA a nd lateral views Rachana Gu REGISTRY NURSE-C Work Phone: Start: 04-30-2025 D-dimer assay, quantitative Rachana Gu REGISTRY NURSE-C Work Phone: Comment on above: D-Dimer ELEVATED (>0 .49): Additional studies and clinicalassessments are indicated to conclude diagnosis of:Deep Vein Thrombosis (DVT) or Pulmonary Embolism (PE) Start: 04-30-2025 Estimated creatinine clearance Rachana Gu REGISTRY NURSE-C Work Phone: Start: 01-28-2025 Pelvic echography Rachana Gu REGISTRY NURSE-C Work Phone: Start: 08-18-2024 Ultrasonography of abdomen Rachana Gu REGISTRY NURSE-C Work Phone: Start: 01-10-2024 Microscopic observat ion [Identifier] in Cervix by Cyto stain Deyanira Lisa APPLICATIONS PROGRAMMER ANALYST - CARBURETOR SPECIALIST Work Phone: Start: 09-01-2020 Microscopic observat ion [Identifier] in Cervix by Cyto stain Rachana Jaren APPLICATIONS PROGRAMMER ANALYST - CARBURETOR SPECIALIST Work Phone: Plan of Treatment Date Care Activity Detail Author Start: 2069 RSV Immunization for Adults (1 - 1-dose 75+ series) RSV Immunization for Adults (1 - 1-dose 75+ series) [facility] Start: 2054 RSV Immunization age d 60 or older (1 - 1-dose 60+ series) RSV Immunization aged 60 or older (1 - 1-dose 60+ series) [facility] Start: 2044 Zoster Vaccines (1 of 2) Zoster Vacc brian (1 of 2) [facility] Start: 02-01-2033 DTaP/Tdap/Td Vaccine s (3 - Td or Tdap) DTaP/Tdap/Td Vaccines (3 - Td or Tdap) [facility] Start: 01-09-2027 Screening for malign ant neoplasm of cervix [facility] Start: 12-02-2025 End: 12-02-2025 Patient encounter procedure 12/02/2025 9:00 AM EDT [facility] [address] [facility] [place] [address] Rachana Gu S, APPLICATIONS PROGRAMMER ANALYST - CARBURETOR SPECIALIST [address] [place] [address] [place] [address] [facility] Start: 11-28-2025 COVID-19 Vaccine () COVID-19 Vaccine () [facility] Comment on above: Postponed from 05/18 (Patient Refused) Start: 06-07-2025 End: 12-05-2025 Alanine aminotransferase [Enzymatic activity/volume] in Serum or Plasma ALT Lab Routine Hyperlipidemia, unspecified hyperlipidemia type Expected: 06/07/2025 (Approximate), Expires: 12/05/2025 [facility] Comment on above: Expected: 06/07/2025 (Approximate), Expires: 12/05/2025 Start: 06-07-2025 End: 12-05-2025 Aspartate aminotransferase [Enzymatic activity/volume] in Serum or Plasma AST Lab Routine Hyperlipidemia, unspecified hyperlipidemia type Expected: 06/07/2025 (Approximate), Expires: 12/05/2025 [facility] Comment on above: Expected: 06/07/2025 (Approximate), Expires: 12/05/2025 Start: 06-07-2025 End: 12-05-2025 Lipid 1996 panel - Serum or Plasma Lipid panel Lab Routine Hyperlipidemia, unspecified hyperlipidemia type Expected: 06/07/2025, Expires: 12/05/2025 [facility] Work Phone: Comment on above: Expected: 06/07/2025 , Expires: 12/05/2025 Start: 05-31-2025 [facility] Start: 04-30-2025 [facility] Start: 04-30-2025 [facility] Start: 03-16-2025 Influenza vaccination Influenza Vacc ine (#1) [facility] Comment on above: Postponed from 05/18 (Patient Refused) Start: 11-29-2024 COVID-19 Vaccine (2022- season) COVID-19 Vaccine (2022- season) [facility] Comment on above: Postponed from 05/18 (Patient Refused) Start: 11-29-2024 Hepatitis B Vaccines (1 of 3 - 19+ 3-dose series) Hepatitis B Vaccines (1 of 3 - 19+ 3-dose series) [facility] Comment on above: Postponed from 10/21 (Patient Refused) Start: 11-29-2024 Hepatitis B Vaccines (1 of 3 - 3-dose series) Hepatitis B Vaccines (1 of 3 - 3-dose series) [facility] Comment on above: Postponed from 10/21 (Patient Refused) Start: 11-29-2024 HIV screening HIV Screening [facility] Comment on above: Postponed from 10/21 (Patient Refused) Start: 11-28-2024 End: 11-28-2025 CBC panel - Blood by Automated count CBC Lab Routine Recurrent cold sores Anxiety and depression Irritable bowel syndrome with both constipation and diarrhea Exercise-induced bronchospasm Screening for deficiency anemia Expected: 11/28/2024 (Approximate), Expires: 11/28/2025 [facility] Comment on above: Expected: 11/28/2024 (Approximate), Expires: 11/28/2025 Start: 11-28-2024 End: 11-28-2025 Comprehensive metabolic 1998 panel - Serum or Plasma Comprehensive metabolic panel Lab Routine Recurrent cold sores Anxiety and depression Irritable bowel syndrome with both constipation and diarrhea Exercise-induced bronchospasm Screening for diabetes mellitus Expected: 11/28/2024 (Approximate), Expires: 11/28/2025 [facility] Comment on above: Expected: 11/28/2024 (Approximate), Expires: 11/28/2025 Start: 11-28-2024 End: 11-28-2025 Lipid 1996 panel - Serum or Plasma Lipid panel Lab Routine Screening for lipoid disorders Expected: 11/28/2024 (Approximate), Expires: 11/28/2025 [facility] [employer] Work Phone: Comment on above: Expected: 11/28/2024 (Approximate), Expires: 11/28/2025 Start: 11-28-2024 End: 11-28-2024 Patient encounter procedure [facility] Start: 2024 Screening for malign ant neoplasm of cervix HPV/Cotest [facility] Start: 07-30-2024 End: 07-30-2025 US Abdomen limited US abdomen limited Imaging Routine Left upper quadrant abdominal pain Expected: 07/30/2024, Expires: 07/30/2025 [facility] Work Phone: Comment on above: Expected: 07/30/2024 , Expires: 07/30/2025 Start: 06-01-2024 Depression Monitoring Depression Mon itoring [facility] Start: 06-01-2024 Depresssion Monitoring Depresssion M onitoring [facility] Start: 05-18-2024 COVID-19 Vaccine ( season) COVID-19 Vaccine ( season) [facility] Start: 05-18-2024 Influenza vaccination Influenza Vacc ine (#1) [facility] Start: 12-20-2023 End: 12-19-2024 Thyrotropin [Units/volume] in Serum or Plasma TSH Lab Routine Other fatigue Expected: 12/20/2023 (Approximate), Expires: 12/19/2024 [facility] Work Phone: Comment on above: Expected: 12/20/2023 (Approximate), Expires: 12/19/2024 Start: 12-20-2023 End: 12-20-2023 Telemedicine consultation with patient 12/20/2023 7:20 AM EDT Telemedicine [facility] [address] [place] [address] Deyanira Gonzalez, APPLICATIONS PROGRAMMER ANALYST - CARBURETOR SPECIALIST [address] [place] [address] [facility] Start: 11-30-2023 End: 11-29-2024 CBC panel - Blood by Automated count CBC Lab Routine Recurrent cold sores Moderate episode of recurrent major depressive disorder (HCC) Anxiety Irritable bowel syndrome with both constipation and diarrhea Exercise-induced bronchospasm Expected: 11/30/2023 (Approximate), Expires: 11/29/2024 [facility] Comment on above: Expected: 11/30/2023 (Approximate), Expires: 11/29/2024 Start: 11-30-2023 End: 11-29-2024 Comprehensive metabolic 1998 panel - Serum or Plasma Comprehensive metabolic panel Lab Routine Recurrent cold sores Moderate episode of recurrent major depressive disorder (HCC) Anxiety Irritable bowel syndrome with both constipation and diarrhea Exercise-induced bronchospasm Screening for diabetes mellitus Expected: 11/30/2023 (Approximate), Expires: 11/29/2024 [facility] [facility] Work Phone: Comment on above: Expected: 11/30/2023 (Approximate), Expires: 11/29/2024 Start: 11-30-2023 End: 11-29-2024 Lipid 1996 panel - Serum or Plasma Lipid panel Lab Routine Screening for lipoid disorders Expected: 11/30/2023 (Approximate), Expires: 11/29/2024 [facility] Comment on above: Expected: 11/30/2023 (Approximate), Expires: 11/29/2024 Start: 11-30-2023 End: 11-30-2023 Patient encounter procedure 11/30/2023 8:00 AM EDT Office Visit [facility] [address] [facility] [address] Rachana Gu APRN - CARBURETOR SPECIALIST [address] [facility] [place] [address] [facility] Start: 09-01-2023 Screening for malign ant neoplasm of cervix Pap Smear [facility] Start: 08-02-2023 COVID-19 Vaccine (3 - Booster for Pfizer series) COVID-19 Vaccine (3 - Booster for Pfizer series) [facility] Comment on above: Postponed from 09/24 (Patient Refused) Start: 08-02-2023 COVID-19 Vaccine (3 - Pfizer series) COVID-19 Vaccine (3 - Pfizer series) [facility] Comment on above: Postponed from 09/24 (Patient Refused) Start: 08-02-2023 HIV [facility] Comment on above: Postponed from 10/21 (Patient Refused) Start: 05-18-2023 COVID-19 Vaccine ( season) COVID-19 Vaccine ( season) [facility] Start: 05-18-2023 Influenza vaccination Influenza Vacc ine (#1) [facility] Start: 02-23-2023 Depresssion Monitoring Depresssion M onitoring [facility] Start: 10-24-2022 DTaP/Tdap/Td Vaccine s (2 - Td or Tdap) DTaP/Tdap/Td Vaccines (2 - Td or Tdap) [facility] Start: 09-29-2021 Patient referral [facility] Work Phone: Start: 2013 Hepatitis B Vaccines (1 of 3 - 19+ 3-dose series) Hepatitis B Vaccines (1 of 3 - 19+ 3-dose series) [facility] Start: 1994 Hepatitis B Vaccines (1 of 3 - 3-dose series) Hepatitis B Vaccines (1 of 3 - 3-dose series) [facility] Start: 1994 HIV screening [facility]ening [facility] Patient Education ED Chest Pain, Noncardiac [facility] Work Phone: Patient referral [facility] Work Phone: Immunizations Immunization Date Immunization Notes Care Provider Ella barcenas 07-07-2024 influenza, seasonal, injectable, preservative free Rachana SHARPE Work Phone: [facility] 07-23-2023 influenza, injectabl e, quadrivalent, preservative free [facility] 07-23-2023 influenza virus vaccine, unspecified formulation Deyanira Gonzalez APPLICATIONS PROGRAMMER ANALYST - CARBURETOR SPECIALIST Work Phone: [facility] 07-18-2023 influenza, injectabl e, quadrivalent, contains preservative Rachana Gu APPLICATIONS PROGRAMMER ANALYST - CARBURETOR SPECIALIST Work Phone: [facility] 07-18-2023 influenza virus vaccine, unspecified formulation Rachana Gu APPLICATIONS PROGRAMMER ANALYST - CARBURETOR SPECIALIST Work Phone: [facility] 02-01-2023 diphtheria, tetanus toxoids and acellular pertussis vaccine Rachana Gu APPLICATIONS PROGRAMMER ANALYST - CARBURETOR SPECIALIST Work Phone: [facility] 07-05-2022 influenza, injectabl e, quadrivalent, preservative free [facility] 07-05-2022 influenza, seasonal, injectable [facility] 07-05-2022 influenza virus vaccine, unspecified formulation Rachana Gu APPLICATIONS PROGRAMMER ANALYST - CARBURETOR SPECIALIST Work Phone: [facility] 07-30-2021 Pfizer SARS-CoV-2 Vaccination Rachana Gu APPLICATIONS PROGRAMMER ANALYST - CARBURETOR SPECIALIST Work Phone: [facility] 06-30-2021 influenza virus vaccine, unspecified formulation Rachana Gu APPLICATIONS PROGRAMMER ANALYST - CARBURETOR SPECIALIST Work Phone: [facility] 06-30-2021 influenza, injectabl e, quadrivalent, preservative free [facility] 06-30-2021 influenza, seasonal, injectable REGISTRY NURSE-C Rachana Gu REGISTRY NURSE Work Phone: [facility] 06-15-2020 influenza virus vaccine, unspecified formulation Rachana Gu APPLICATIONS PROGRAMMER ANALYST - CARBURETOR SPECIALIST Work Phone: [facility] 06-15-2020 influenza, injectabl e, quadrivalent, preservative free [facility] 06-15-2020 influenza, seasonal, injectable REGISTRY NURSE-C Rachana Gu REGISTRY NURSE Work Phone: [facility] 07-10-2019 influenza virus vaccine, unspecified formulation Rachana Gu APPLICATIONS PROGRAMMER ANALYST - CARBURETOR SPECIALIST Work Phone: [facility] 07-08-2019 influenza, injectabl e, quadrivalent, preservative free [facility] 07-08-2019 influenza, seasonal, injectable REGISTRY NURSE-C Rachana Gu REGISTRY NURSE Work Phone: [facility] 06-14-2018 influenza, seasonal, injectable Rachana Jaren APPLICATIONS PROGRAMMER ANALYST - CARBURETOR SPECIALIST Work Phone: [facility] 07-26-2017 influenza virus vaccine, unspecified formulation Rachana Jaren APPLICATIONS PROGRAMMER ANALYST - CARBURETOR SPECIALIST Work Phone: [facility] 07-26-2017 influenza, injectabl e, quadrivalent, preservative free [facility] 07-26-2017 influenza, seasonal, injectable REGISTRY NURSE-C Rachana Gu REGISTRY NURSE Work Phone: [facility] 07-05-2014 influenza, seasonal, injectable Rachanaalysia Gu APPLICATIONS PROGRAMMER ANALYST - CARBURETOR SPECIALIST Work Phone: [facility] 10-24-2012 tetanus toxoid, reduced diphtheria toxoid, and acellular pertussis vaccine, adsorbed Rachana Jaren APPLICATIONS PROGRAMMER ANALYST - CARBURETOR SPECIALIST Work Phone: [facility] 10-07-2012 influenza, seasonal, injectable Rachanaalysia Gu APPLICATIONS PROGRAMMER ANALYST - CARBURETOR SPECIALIST Work Phone: [facility] 1995 measles, mumps and rubella virus vaccine Rachana Jaren APPLICATIONS PROGRAMMER ANALYST - CARBURETOR SPECIALIST Work Phone: [facility] Payers Date Payer Category Payer Self-pay [id number] 2021 [facility] [id number] 2021 Unknown 2021 Unknown [id number] Unknown [id number] Unknown [id number] Unknown [id number] Unknown [id number] Unknown [id number] Unknown [id number] Unknown 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 [facility] In the past 12 month s, was there a time when you were not able to pay the mortgage or rent on time? No [facility] Start: 11-30-2023 Alcohol Comment socially [facility] Start: 04-17-2022 End: 12-10-2024 Sex Female (finding) [facility] Mental Status Date Assessment Result Facility 04-30-2025 Cognitive function Level Of Cons ciousness Awake;Alert;Appropriate [facility] Work Phone: Clinical Notes 11-29-2022 to 04-30-2025 Note Date & Type Note Facility 04-30-2025 Radiology Diagnostic study note [facility] Services [address] [place], [place] [address] CTA Chest W/WO Contrast MR#: [id number] Acct: [id number] Name: CHAYO ACHARYA Rep #: [id number] : 1995 F 29 From: Flako Waldron MD PCP: ANNEMARIE Dockery Status: REG ER Study:CTA Chest W/WO Contrast Date of Exam: 04/30/25 Exam# [id number] Ordering Dr: Roma Farooq PROCEDURE: CTA CHEST W/WO CONTRAST 04/30/2025 REASON FOR EXAM: CHEST PAIN TO RULE OUT PE TECHNIQUE: CTA CHEST W/WO CONTRAST Multiplanar Sagittal and Coronal images were obtained. 3D post processing was performed CONTRAST: Isovue 370 VOLUME: 99 mL One or more dose reduction techniques were used (e.g., Automated exposure control, adjustment of the mA and/or kV according to patient size, use of iterative reconstruction technique). RADIATION DOSE SUMMARY: CTDlvol: 13 mGy DLP: 362 mGycm COMPARISON: April 30, 2025 # of known CTs in the past 12 months: 0 # of known Cardiac Nuclear Medicine Studies in the past 12 months: 0 FINDINGS: Thoracic Aorta: No evidence of aortic dissection or rupture. No aneurysm. Heart: Normal size. No pericardial effusion. Pulmonary Vessels: The timing and quality of the contrast bolus is diagnostic. There is no evidence of acute or chronic pulmonary embolus. Hardware: Unremarkable Lymph nodes: None appear enlarged. Lungs and Airways: Respiratory motion artifact. No consolidation, mass or worrisome nodule. Pleura: No pleural effusion or pneumothorax. Upper Abdomen: Normal Bones: Straightening of the thoracic kyphosis. CT/CTA Chest W/WO Contrast IMPRESSION: No acute or chronic pulmonary embolus. No acute aortic syndrome Reading Location: [facility] CC: ANNEMARIE Gu; [place] Mi ~ Gauge And Weigh Machine Adjuster: Signed [facility] 04-30-2025 Radiology Diagnostic study note [facility] Services [address] [place], [place] [address] Chest PA and Lateral MR#: [id number] Acct: [id number] Name: KMCHAYO NICHOLSN Rep #: [id number] : 1995 F 29 From: Jose Eisenberg MD PCP: ANNEMARIE Dockery Status: REG ER Study:Chest PA and Lateral Date of Exam: 04/30/25 Exam# [id number] Ordering Dr: Roma Farooq PROCEDURE: CHEST PA AND LATERAL 04/30/2025 REASON FOR EXAM: CHEST PAIN TECHNIQUE: CHEST PA AND LATERAL COMPARISON: None FINDINGS: Hardware: EKG electrodes are seen. Heart: The heart size is normal. Mediastinum: The mediastinal contour is unremarkable. Lungs: The lungs are clear. Bones: The bones are unremarkable. RAD/Chest PA and Lateral IMPRESSION: NEGATIVE CHEST Reading Location: [facility]- CC: ANNEMARIE Gu; [place] Mi ~ Gauge And Weigh Machine Adjuster: Signed [facility] 01-29-2025 Radiology Diagnostic study note [facility] [address] [place] [address] Pelvic w/ Transvaginal MR#: [id number] Acct: [id number] Name: KMCHAYO Rep #: [id number] : 1995 F 29 From: Duran Pandey MD PCP: ANNEMARIE Dockery Status: REG CLI Study:Pelvic w/ Transvaginal Date of Exam: 01/28/25 Exam# [id number] Ordering Dr: Kathrin Devine NP PROCEDURE: PELVIC W/ TRANSVAGINAL 01/28/2025 REASON FOR EXAM: PAIN TECHNIQUE: Transabdominal and transvaginal pelvic ultrasound FINDINGS: Transabdominal and transvaginal imaging. The uterus measures 9.4 x 5.1 x 3.6 cm and appears within limits. Homogeneous trilaminar appearing endometrium appears prominent at 1.5 cm, correlate with menstrual cycle. Cervix appears within limits. Right ovary measures 4.5 x 2.6 x 2.5 cm and appears within limits. Left ovary measures 2.9 x 2.9 x 1.8 cm and appears within limits containing small follicles. No evidence of adnexal mass. Evidence of bilateral vascular ovarian flow is seen. No free fluid. Bladder volume 85 cc. US/Pelvic w/ Transvaginal IMPRESSION: Homogeneous trilaminar appearing endometrium appears prominent at 1.5 cm, correlate with menstrual cycle. Reading Location: [facility] CC: ANNEMARIE Gu; ANNEMARIE Devine ~ Gauge And Weigh Machine Adjuster: Signed [facility] 01-22-2025 Evaluation note Diagnosis Onset Date Resolution Infertility acute January 22, 2025 9:22am Pelvic pain acute January 22, 2025 9:22am Encounter for routine gynecological examination noneactive January 22, 2025 9: 22am [facility] Work Phone: [phone]) 538-274303-28-2025 Telephone encounter Note* Telephone Encounter - Dawna Delgado MA - 12/12/2024 7:17 AM EDT Prescription Request: Last medication check: none Last physical exam: 11/28/24 Next scheduled appointment: 12/02/25 Last date of refill on this medication 07/07/24 12 tablets [id number] Miscellaneous Notes* Telephone Encounter - Dawna Delgado MA - 12/12/2024 7:17 AM EDT Prescription Request: Last medication check: none Last physical exam: 11/28/24 Next scheduled appointment: 12/02/25 Last date of refill on this medication 07/07/24 12 tablets 1 refill documented in this [facility]03-21-2025 Note* Addendum Note - THELMA Cadena CNP - 12/05/2024 1:22 PM EDTAddended by: RACHANA GU on: 12/05/2024 01:22 PM Modules accepted: Orders [id number] Note* Addendum Note - THELMA Cadena CNP - 12/05/2024 1:22 PM EDTAddended by: RACHANA GU on: 12/05/2024 01:22 PM Modules accepted: Orders [id number] Note* Addendum Note - THELMA Cadena CNP - 12/05/2024 1:22 PM EDTAddended by: RACHANA GU on: 12/05/2024 01:22 PM Modules accepted: Orders [place] [id number] Miscellaneous Notes* Addendum Note - THELMA Cadena CNP - 12/05/2024 1:22 PM EDTAddended by: RACHANA GU on: 12/05/2024 01:22 PM Modules accepted: Orders * Telephone Encounter - THELMA Cadena CNP - 12/05/2024 1:21 PM EDT Images from the original note were not included. Lab orders signed. Thank you. Listed below is educational information on a diet low in cholesterol. Patient Education Low Cholesterol, Saturated Fat, and Trans Fat Diet About this topic Cholesterol, saturated fat, and trans fat are in many foods. These may raise your blood cholesterollevels. If your cholesterol is too high, this can cause health problems in your heart, liver, kidneys, and even your eyes. The rocha to lowering your risk of heart problems is to lower your bad fat intake. Saturated fats and trans fats are the bad fats. These fats clog your arteries and raise your bad cholesterol. Saturated fats and trans fats are solid fats at room temperature. Saturated fats are animal fats. Trans fats are manmade fats. They add flavor to a lot of packaged foods. Staying away from saturated and trans fats will help your heart. When you do eat foods with fat, make sure they have the good fats. Monounsaturated and polyunsaturated fats are good fats. These fats help raise your good cholesterol and protect your heart. General How to Lower Fat and Cholesterol in Your Diet Read the labels of the foods you buy from the market to find out how much fat is present. Under 5% of total fat on a label means it is low fat. Over 20% of total fat on a label means it is high fat. Eat high fiber foods, like soluble fiber. This type of fiber helps lower cholesterol in the body. Choose oatmeal, fruits (like apples), beans, and nuts to get the most soluble fiber. Eat foods high in omega-3 fatty acids like wayne seeds, walnuts, salmon, tuna, trout, valenzuela, flaxseed, and soybeans. These foods help keep the heart healthy. Limit your bad fat and oil intake. Stay away from butter, stick margarine, shortening, lard, and palm and coconut oil. Pick plant-based spreads instead. Limit mayonnaise, salad dressings, gravies, and sauces, unless it is made from low-fat ingredients. Limit chocolate. Do not eat high-fat processed foods like hot dogs, jonas, sausage, ham and other luncheon meats high in fat, and some frozen foods. Pick fish, chicken, turkey, and lean meats instead. Eat more dried beans, lentils, and tofu to get your protein. Do not eat organ meats, like liver. Choose nonfat or low-fat milk, yogurt, and cheese. Use light or fat-free cream cheese and sour cream. Eat lots of fruits and vegetables. Pick whole grain breads, cereals, pastas, and rice. Do not eat snacks that are high in fats like granola, cookies, pies, pastries, doughnuts, and croissants. Stay away from deep fried foods. Help When Cooking Remove the fat portion of meats and the skin from poultry before cooking. Bake, broil, grill, poach, or roast poultry, fish, and lean meats. Drain and throw away the fat that drains out of meat as you cook it. Try to add little or no fat to foods. Use olive or canola oil for cooking or baking. Steam your vegetables. Use herbs or no-oil marinades to flavor foods. Who should use this diet? This diet is for people who are at high risk of getting health problems like heart disease, high blood pressure, diabetes, and others. This diet is also good for all people to follow to keep your heart healthy. What foods are good to eat? Foods with good fats are: Canola, peanut, and olive oil Safflower, soybean, and corn oil Walnuts, almonds, cashews, and peanuts Pumpkin and sunflower seeds Pepperell and tuna Tofu Soymilk Avocado What foods should be limited or avoided? Stay away from these types of foods that have saturated fats: Whole fat dairy products like cheese, ice cream, whole milk, and cream Palm and coconut oils High-fat meats like beef, condon, poultry with the skin, jonas, and sausage Butter and lard Stay away from these types of foods that may have trans fat: Cookies, cakes, candy, doughnuts, baked goods, muffins, pizza dough, and pie crusts that are packaged Fried foods Frozen dinners Chips and crackers Microwave popcorn Stick margarine and vegetable shortenings Helpful tips To help stay away from saturated fat: Pick lean cuts of meat Take the skin off chicken and turkey or pick skinless Pick low-fat cheese, milk, and ice cream Use liquid oils when cooking and baking, such as olive oil and canola oil To help stay away from trans fat: Look at your labels. Choose foods with 0% trans fat. Read the ingredient list. Avoid foods with partially hydrogenated oil in the ingredient list. This means there is trans fat in the product. Where can I learn more? [employer] http://www.heart.org/HEARTORG/Conditions/Cholesterol/PreventionTreatmentofHighCh olesterol/Axaw-Xhiz-Jmyl_IIE_148838_Srldyod.jsp Last Reviewed Date 2021-06-21 Consumer Information Use and Disclaimer This generalized information is a limited summary of diagnosis, treatment, and/or medication information. It is not meant to be comprehensive and should be used as a tool to help the user understand and/or assess potential diagnostic and treatment options. It does NOT include all information about conditions, treatments, medications, side effects, or risks that may apply to a specific patient. Itis not intended to be medical advice or a substitute for the medical advice, diagnosis, or treatment of a health care provider based on the health care provider's examination and assessment of a patient s specific and unique circumstances. Patients must speak with a health care provider for complete information about their health, medical questions, and treatment options, including any risks or benefits regarding use of medications. This information does not endorse any treatments or medications as safe, effective, or approved for treating a specific patient. [employer] and its affiliatesdisclaim any warranty or liability relating to this information or the use thereof. The use of thisinformation is governed by the Terms of Use, available at https://www.[employer].com/en/know/msiwxqfb-exeqzpzwgvuri-etxku Copyright Copyright 2021 [employer] and its affiliates and/or licensors. All rights reserved. * Addendum Note - Ayde Eduardo MA - 12/05/2024 1:00 PM EDTAddended by: AYDE EDUARDO on: 12/05/2024 01:00 PM Modules accepted: Orders * Telephone Encounter - Ayde Eduardo MA - 12/05/2024 12:50 PM EDT Called and spoke with Chayo, states that she would like to work on diet and exercise first before starting medication. Would also like a diet plan/cheat sheet to go off of so she knows how to improve her diet to help bring these down. Called Chayo back after talking with Rachana about when to recheck, recheck in 6 months, notified Chayo of this. She will get this done at [facility] again, as soon as order is placed, advised her that I will attach both the cholesterol diet and lab orders to her Mychart. Labs pended. * Telephone Encounter - THELMA Cadena CNP - 12/05/2024 12:29 PM EDT Received blood work results that were drawn through [facility]. Blood count is normal. Negative for signs of infection or anemia. Chem panel and blood sugar are normal. Total and bad cholesterol levels are elevated. Other cholesterol levels are good. Recommend starting a low-dose rosuvastatin 5 mg nightly to help bring bad cholesterol levels down and recheck levels again in 4 weeks. documented in this [facility]03-21-2025 NoteLab orders signed. Thank you. Listed below is educational information on a diet low in cholesterol. Patient Education Low Cholesterol, Saturated Fat, and Trans Fat Diet About this topic Cholesterol, saturated fat, and trans fat are in many foods. These may raise your blood cholesterol levels. If your cholesterol is too high, this can cause health problems in your heart, liver, kidneys, and even your eyes. The rocha to lowering your risk of heart problems is to lower your bad fat intake. Saturated fats and trans fats are the bad fats. These fats clog your arteries and raise your bad cholesterol. Saturated fats and trans fats are solid fats at room temperature. Saturated fats are animal fats. Trans fats are manmade fats. They add flavor to a lot of packaged foods. Staying away from saturated and trans fats will help your heart. When you do eat foods with fat, make sure they have the good fats. Monounsaturated and polyunsaturated fats are good fats. These fats help raise your good cholesterol and protect your heart. General How to Lower Fat and Cholesterol in Your Diet Read the labels of the foods you buy from the market to find out how much fat is present. Under 5% of total fat on a label means it is low fat. Over 20% of total fat on a label means it is ?high fat?. Eat high fiber foods, like soluble fiber. This type of fiber helps lower cholesterol in the body. Choose oatmeal, fruits (like apples), beans, and nuts to get the most soluble fiber. Eat foods high in omega-3 fatty acids like wayne seeds, walnuts, salmon, tuna, trout, valenzuela, flaxseed, and soybeans. These foods help keep the heart healthy. Limit your bad fat and oil intake. Stay away from butter, stick margarine, shortening, lard, and palm and coconut oil. Pick plant-based spreads instead. Limit mayonnaise, salad dressings, gravies, and sauces, unless it is made from low-fat ingredients. Limit chocolate. Do not eat high-fat processed foods like hot dogs, jonas, sausage, ham and other luncheon meats high in fat, and some frozen foods. Pick fish, chicken, turkey, and lean meats instead. Eat more dried beans, lentils, and tofu to get your protein. Do not eat organ meats, like liver. Choose nonfat or low-fat milk, yogurt, and cheese. Use light or fat-free cream cheese and sour cream. Eat lots of fruits and vegetables. Pick whole grain breads, cereals, pastas, and rice. Do not eat snacks that are high in fats like granola, cookies, pies, pastries, doughnuts, and croissants. Stay away from deep fried foods. Help When Cooking Remove the fat portion of meats and the skin from poultry before cooking. Bake, broil, grill, poach, or roast poultry, fish, and lean meats. Drain and throw away the fat that drains out of meat as you cook it. Try to add little or no fat to foods. Use olive or canola oil for cooking or baking. Steam your vegetables. Use herbs or no-oil marinades to flavor foods. Who should use this diet? This diet is for people who are at high risk of getting health problems like heart disease, high blood pressure, diabetes, and others. This diet is also good for all people to follow to keep your heart healthy. What foods are good to eat? Foods with good fats are: Canola, peanut, and olive oil Safflower, soybean, and corn oil Walnuts, almonds, cashews, and peanuts Pumpkin and sunflower seeds Pepperell and tuna Tofu Soymilk Avocado What foods should be limited or avoided? Stay away from these types of foods that have saturated fats: Whole fat dairy products like cheese, ice cream, whole milk, and cream Palm and coconut oils High-fat meats like beef, condon, poultry with the skin, jonas, and sausage Butter and lard Stay away from these types of foods that may have trans fat: Cookies, cakes, candy, doughnuts, baked goods, muffins, pizza dough, and pie crusts that are packaged Fried foods Frozen dinners Chips and crackers Microwave popcorn Stick margarine and vegetable shortenings Helpful tips To help stay away from saturated fat: Pick lean cuts of meat Take the skin off chicken and turkey or pick skinless Pick low-fat cheese, milk, and ice cream Use liquid oils when cooking and baking, such as olive oil and canola oil To help stay away from trans fat: Look at your labels. Choose foods with 0% trans fat. Read the ingredient list. Avoid foods with partially hydrogenated oil in the ingredient list. This means there is trans fat in the product. Where can I learn more? [employer] http://www.heart.org/HEARTORG/Conditions/Cholesterol/PreventionTreatmentofHighCh olesterol/Tawd-Ecja-Miig_VTT_299661_Jzjusrf.jsp Last Reviewed Date 2021-06-21 Consumer Information Use and Disclaimer This generalized information is a limited summary of diagnosis, treatment, and/or medication information. It is not meant to be comprehensive and should be used as a tool to help (more content not included)...[facility] 12-05-2024 Telephone encounter Note* Telephone Encounter - THELMA Cadena CNP - 12/05/2024 1:21 PM EDT Images from the original note were not included. Lab orders signed. Thank you. Listed below is educational information on a diet low in cholesterol. Patient Education Low Cholesterol, Saturated Fat, and Trans Fat Diet About this topic Cholesterol, saturated fat, and trans fat are in many foods. These may raise your blood cholesterollevels. If your cholesterol is too high, this can cause health problems in your heart, liver, kidneys, and even your eyes. The rocha to lowering your risk of heart problems is to lower your bad fat intake. Saturated fats and trans fats are the bad fats. These fats clog your arteries and raise your bad cholesterol. Saturated fats and trans fats are solid fats at room temperature. Saturated fats are animal fats. Trans fats are manmade fats. They add flavor to a lot of packaged foods. Staying away from saturated and trans fats will help your heart. When you do eat foods with fat, make sure they have the good fats. Monounsaturated and polyunsaturated fats are good fats. These fats help raise your good cholesterol and protect your heart. General How to Lower Fat and Cholesterol in Your Diet Read the labels of the foods you buy from the market to find out how much fat is present. Under 5% of total fat on a label means it is low fat. Over 20% of total fat on a label means it is high fat. Eat high fiber foods, like soluble fiber. This type of fiber helps lower cholesterol in the body. Choose oatmeal, fruits (like apples), beans, and nuts to get the most soluble fiber. Eat foods high in omega-3 fatty acids like wayne seeds, walnuts, salmon, tuna, trout, valenzuela, flaxseed, and soybeans. These foods help keep the heart healthy. Limit your bad fat and oil intake. Stay away from butter, stick margarine, shortening, lard, and palm and coconut oil. Pick plant-based spreads instead. Limit mayonnaise, salad dressings, gravies, and sauces, unless it is made from low-fat ingredients. Limit chocolate. Do not eat high-fat processed foods like hot dogs, jonas, sausage, ham and other luncheon meats high in fat, and some frozen foods. Pick fish, chicken, turkey, and lean meats instead. Eat more dried beans, lentils, and tofu to get your protein. Do not eat organ meats, like liver. Choose nonfat or low-fat milk, yogurt, and cheese. Use light or fat-free cream cheese and sour cream. Eat lots of fruits and vegetables. Pick whole grain breads, cereals, pastas, and rice. Do not eat snacks that are high in fats like granola, cookies, pies, pastries, doughnuts, and croissants. Stay away from deep fried foods. Help When Cooking Remove the fat portion of meats and the skin from poultry before cooking. Bake, broil, grill, poach, or roast poultry, fish, and lean meats. Drain and throw away the fat that drains out of meat as you cook it. Try to add little or no fat to foods. Use olive or canola oil for cooking or baking. Steam your vegetables. Use herbs or no-oil marinades to flavor foods. Who should use this diet? This diet is for people who are at high risk of getting health problems like heart disease, high blood pressure, diabetes, and others. This diet is also good for all people to follow to keep your heart healthy. What foods are good to eat? Foods with good fats are: Canola, peanut, and olive oil Safflower, soybean, and corn oil Walnuts, almonds, cashews, and peanuts Pumpkin and sunflower seeds Pepperell and tuna Tofu Soymilk Avocado What foods should be limited or avoided? Stay away from these types of foods that have saturated fats: Whole fat dairy products like cheese, ice cream, whole milk, and cream Palm and coconut oils High-fat meats like beef, condon, poultry with the skin, jonas, and sausage Butter and lard Stay away from these types of foods that may have trans fat: Cookies, cakes, candy, doughnuts, baked goods, muffins, pizza dough, and pie crusts that are packaged Fried foods Frozen dinners Chips and crackers Microwave popcorn Stick margarine and vegetable shortenings Helpful tips To help stay away from saturated fat: Pick lean cuts of meat Take the skin off chicken and turkey or pick skinless Pick low-fat cheese, milk, and ice cream Use liquid oils when cooking and baking, such as olive oil and canola oil To help stay away from trans fat: Look at your labels. Choose foods with 0% trans fat. Read the ingredient list. Avoid foods with partially hydrogenated oil in the ingredient list. This means there is trans fat in the product. Where can I learn more? [employer] http://www.heart.org/HEARTORG/Conditions/Cholesterol/PreventionTreatmentofHighCh olesterol/Zbpg-Zyvx-Dhja_ZDU_014690_Xlautec.jsp Last Reviewed Date 2021-06-21 Consumer Information Use and Disclaimer This generalized information is a limited summary of diagnosis, treatment, and/or medication information. It is not meant to be comprehensive and should be used as a tool to help the user understand and/or assess potential diagnostic and treatment options. It does NOT include all information about conditions, treatments, medications, side effects, or risks that may apply to a specific patient. Itis not intended to be medical advice or a substitute for the medical advice, diagnosis, or treatment of a health care provider based on the health care provider's examination and assessment of a patient s specific and unique circumstances. Patients must speak with a health care provider for complete information about their health, medical questions, and treatment options, including any risks or benefits regarding use of medications. This information does not endorse any treatments or medications as safe, effective, or approved for treating a specific patient. [employer] and its affiliatesdisclaim any warranty or liability relating to this information or the use thereof. The use of thisinformation is governed by the Terms of Use, available at https://www.w[employer]tersClouderauwer.com/en/know/jewghbij-xkdmbrazirvki-ogqal Copyright Copyright 2021 [employer] and its affiliates and/or licensors. All rights reserved. [facility]03-21-2025 Note* Addendum Note - Ayde Eduardo MA - 12/05/2024 1:00 PM EDTAddended by: AYDE EDUARDO on: 12/05/2024 01:00 PM Modules accepted: Orders [id number] Note* Addendum Note - Ayde Eduardo MA - 12/05/2024 1:00 PM EDTAddended by: AYDE EDUARDO on: 12/05/2024 01:00 PM Modules accepted: Orders [id number] Note* Addendum Note - Ayde Eduardo MA - 12/05/2024 1:00 PM EDTAddended by: AYDE EDUARDO on: 12/05/2024 01:00 PM Modules accepted: Orders [id number] Telephone encounter Note* Telephone Encounter - Ayde Eduardo MA - 12/05/2024 12:50 PM EDT Called and spoke with Chayo, states that she would like to work on diet and exercise first before starting medication. Would also like a diet plan/cheat sheet to go off of so she knows how to improve her diet to help bring these down. Called Chayo back after talking with Rachana about when to recheck, recheck in 6 months, notified Chayo of this. She will get this done at [facility] again, as soon as order is placed, advised her that I will attach both the cholesterol diet and lab orders to her Mychart. Labs pended. [id number] Telephone encounter Note* Telephone Encounter - Rachana Gu APRN - JACLYN - 12/05/2024 12:29 PM EDT Received blood work results that were drawn through [facility]. Blood count is normal. Negative for signs of infection or anemia. Chem panel and blood sugar are normal. Total and bad cholesterol levels are elevated. Other cholesterol levels are good. Recommend starting a low-dose rosuvastatin 5 mg nightly to help bring bad cholesterol levels down and recheck levels again in 4 weeks. [id number] History of Present illness Narrative* THELMA Cadena CNP - 11/28/2024 8:00 AM EDT Images from the original note were not included. [facility] [place] [address] [address] [facility][[address]] [address] [facility] [address] Dept: [phone] Dept Loc: [phone] HPI: Chayo Acharya is a 29 y.o. female who presents today for her medical conditions/complaints as noted below. Chayo Acharya is c/o of Annual Exam, Blood Work, and Health Maintenance (Tdap- had one at work, thinks she had in 2021 /Flu- declines / Covid- not done ) HPI- Chayo presents today for her annual physical and fasting blood work. 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 Will use once every 2-3 months. Depression/Anxiety: Feels symptoms are well controlled overall. Has not needed her PRN Hydroxyzine. IBS-C&D: Feels symptoms are well controlled. Not currently following up with GI and does not need medication. Exercise Induced Bronchospasm: Will use her albuterol inhaler before exercising and this works wellfor her. Health Maintenance: Declines to be vaccinated for Hep B. Declines screening for HIV. States she hada Tdap vaccination through her work- will fax over immunization record. Declines a flu vaccination.Vaccinated for COVID-19 x2 with most recent dose on 07/30/21- declines additional doses. Pap smear:01/10/24- sees an [employer]. See ROS for additional information. Past Medical History: Diagnosis Date Acute non-recurrent maxillary sinusitis Allergic rhinitis, cause unspecified Anxiety Asthma Depression Dysuria Exercise induced bronchospasm H/O cold sores Irregular menstrual bleeding Irritable bowel syndrome Other acne Other malaise and fatigue Urinary frequency Past Surgical History: Procedure Laterality Date WISDOM TOOTH EXTRACTION Family History Problem Relation Name Age of Onset Ovarian cancer Paternal Grandmother 80s Heart disease Father Alban Medina Colon cancer Neg Hx Breast cancer Neg Hx Uterine cancer Neg Hx Social History Tobacco Use Smoking status: Never Smokeless tobacco: Never Substance Use Topics Alcohol use: Yes Comment: socially Current Outpatient Medications Medication Sig Dispense Refill albuterol 108 (90 Base) MCG/ACT inhaler Inhale 2 puffs every 6 hours as needed for wheezing or shortness of breath. 18 g 1 Vit-DSS-Fe Cbn-FA ( AD PO) Take by mouth. valACYclovir (Valtrex) 1 g tablet TAKE TWO TABLETS BY MOUTH TWICE DAILY FOR ONE DAY 12 tablet 1 No current facility-administered medications for this visit. No Known Allergies Health Maintenance Topic Date Due DTaP/Tdap/Td Vaccines (2 - Td or Tdap) 10/24/2022 Influenza Vaccine (1) 05/18/2024 COVID-19 Vaccine (3 - 2023- season) 2024 Hepatitis B Vaccines (1 of 3 - 19+ 3-dose series) 11/29/2024 (Originally 2013) HIV Screening 11/29/2024 (Originally 1994) Depression Monitoring 05/29/2025 Cervical Cancer Screening 01/09/2027 Zoster Vaccines (1 of 2) 2044 RSV Immunization for Adults (1 - 1-dose 75+ series) 2069 MMR Vaccines Completed Hepatitis C Screening Completed RSV Immunization under 20 Months Aged Out HIB Vaccines Aged Out IPV Vaccines Aged Out Hepatitis A Vaccines Aged Out Meningococcal Vaccine Aged Out Rotavirus Vaccines Aged Out HPV Vaccines Aged Out Pneumococcal Vaccine: Pediatrics (0 to 5 Years) and At-Risk Patients (6 to 49 Years) Aged Out Varicella Vaccines Discontinued Subjective: Review of Systems Constitutional: Negative for chills and fever. HENT: Negative for hearing loss and trouble swallowing. Eyes: Negative for pain and visual disturbance. Respiratory: Negative for cough, chest tightness, shortness of breath and wheezing. Cardiovascular: Negative for chest pain, palpitations and leg swelling. Gastrointestinal: Negative for abdominal distention, abdominal pain, blood in stool, constipation and diarrhea. Endocrine: Negative for polydipsia, polyphagia and polyuria. Genitourinary: Negative for dysuria and hematuria. Musculoskeletal: Negative for arthralgias and myalgias. Skin: Negative for color change, pallor, rash and wound. Neurological: Negative for dizziness, syncope, weakness, light-headedness and headaches. Hematological: Does not bruise/bleed easily. Psychiatric/Behavioral: Positive for dysphoric mood. Negative for self-injury and suicidal ideas. The patient is nervous/anxious. Objective: BP 100/72 (BP Location: Left arm, Patient Position: Sitting) Pulse 67 Ht 5' 3 (1.6 m) Wt 156lb 9.6 oz (71 kg) SpO2 98% BMI 27.74 kg/m Last 3 PERLA-7 Scores 11/28/2024 0800 PERLA-7 Total Score: 4 Last 3 PHQ-2 Scores 11/28/2024 0809 11/26/2024 0815 Patient Health Questionnaire-2 Score: 2 2 Last 3 PHQ-9 Scores 11/28/2024 0809 Patient Health Questionnaire-9 Score: 7 Physical Exam Constitutional: Oriented to person, place, and time. Appears well-developed and well-nourished. No distress. HENT: Head: Normocephalic and atraumatic. Right Ear: External ear normal. Left Ear: External ear normal. Nose: Nose normal. Mouth/Throat: Oropharynx is clear and moist. No oropharyngeal exudate. Bilateral TM's pearly smith with a good cone of light bilaterally. Eyes: Conjunctivae and EOM are normal. Pupils are equal, round, and reactive to light. Right eye exhibits no discharge. Left eye exhibits no discharge. Neck: Normal range of motion. Neck supple. No thyromegaly present. Cardiovascular: Normal rate, regular rhythm, normal heart sounds and intact distal pulses. Exam reveals no friction rub. No murmur heard. Carotid upstrokes brisk and without bruits bilaterally. Pulmonary/Chest: Effort normal and breath sounds normal. No respiratory distress. No wheezes. No rales. Abdominal: Soft. Bowel sounds are normal. No distension and no mass. There is no hepatosplenomegaly. There is no tenderness. Musculoskeletal: Normal range of motion. No edema, tenderness or deformity. Strength 5/5 with flexion and extension of extremities x4. Lymphadenopathy: No cervical adenopathy. Neurological: Alert and oriented to person, place, and time. Coordination normal. Skin: Skin is warm and dry. No rash noted. No erythema. No pallor. Psychiatric: Normal mood and affect. Behavior is normal. Judgment and thought content normal. Assessment and Plan: 1. Well adult exam - Encouraged a healthy diet low in cholesterol and saturated fats. - Encouraged regular exercise. 2. Recurrent cold sores - Comprehensive metabolic panel - CBC - Stable with PRN Valtrex. Will continue current treatment plan. 3. Anxiety and depression - Comprehensive metabolic panel - CBC - Symptoms stable off of medication at this time. 4. Irritable bowel syndrome with both constipation and diarrhea - Comprehensive metabolic panel - CBC - Symptoms stable. 5. Exercise-induced bronchospasm - Comprehensive metabolic panel - CBC - Stable with PRN Albuterol. Will continue current treatment plan. 6. Screening for diabetes mellitus - Comprehensive metabolic panel - Will notify of blood work results. 7. Screening for lipoid disorders - Lipid panel - Will notify of blood work results. 8. Screening for deficiency anemia - CBC - Will notify of blood work results. Chayo received counseling on the following healthy behaviors: continue current medications Discussed use, benefit, and side effects of prescribed medications. Barriers to medication compliance addressed. All patient questions answered. Pt voiced understanding. Follow Up: Follow up in about 1 year (around 11/28/2025) for annual physical. Orders Placed This Encounter Procedures Lipid panel Standing Status: Future Number of Occurrences: 1 Standing Expiration Date: 11/28/2025 Comprehensive metabolic panel Standing Status: Future Number of Occurrences: 1 Standing Expiration Date: 11/28/2025 CBC Standing Status: Future Number of Occurrences: 1 Standing Expiration Date: 11/28/2025 THELMA Cadena CNP 11/28/2024 8:10 AM * Ayde Eduardo MA - 11/28/2024 8:00 AM EDT Patient verified by last name and . documented in this [facility]12-30-2024 Telephone encounter Note* Telephone Encounter - THELMA Cadena CNP - 09/15/2024 6:42 AM EST Noted. [id number] Miscellaneous Notes* Telephone Encounter - THELMA Cadena CNP - 09/15/2024 6:42 AM EST Noted. * Telephone Encounter - Ayde Eduardo MA - 09/08/2024 4:56 PM EST This was done at [facility]. * Telephone Encounter - Cary Pratt - 09/08/2024 4:41 PM EST We have been unable to reach your patient to schedule their testing. Test Name: US abdomen limited 2nd Attempt: LVM/ canceled request documented in this encounterSUniversity Hospitals Portage Medical [id number] Telephone encounter Note* Telephone Encounter - Ayde Eduardo MA - 09/08/2024 4:56 PM EST This was done at [facility]. [id number] Telephone encounter Note* Telephone Encounter - Cary Pratt - 09/08/2024 4:41 PM EST We have been unable to reach your patient to schedule their testing. Test Name: US abdomen limited 2nd Attempt: LVM/ canceled request [id number] Evaluation + Plan note* Assessment & Plan Note - THELMA Zepeda CNP - 07/30/2024 1:15 PM ESTAssociated Problem(s): Left upper quadrant abdominal pain No concern for acute abdomen. Most likely musculoskeletal. Intermittent and triggered with certain movements. Will obtain ultrasound of the left upper quadrant to further evaluate. Most likely benign. [id number] Miscellaneous Notes* Assessment & Plan Note - THELMA Zepeda CNP - 07/30/2024 1:15 PM ESTAssociated Problem(s): Left upper quadrant abdominal pain No concern for acute abdomen. Most likely musculoskeletal. Intermittent and triggered with certain movements. Will obtain ultrasound of the left upper quadrant to further evaluate. Most likely benign. documented in this [facility]11-13-2024 History of Present illness Narrative* Coreen Barber - 07/30/2024 11:40 AM EST Patient was identified by name and Date of . * THELMA Zepeda CNP - 07/30/2024 11:40 AM EST Images from the original note were not included. 07/30/2024 Chayo Acharya (: 1995) is a 28 y.o. female , Established patient, here for evaluation ofthe following chief complaint(s): Chest Pain (Rib pain-started 1.5 yrs ago), Itching (Left rib cage under left breast ), and Nausea ASSESSMENT/PLAN: 1. Left upper quadrant abdominal pain Assessment & Plan: No concern for acute abdomen. Most likely musculoskeletal. Intermittent and triggered with certain movements. Will obtain ultrasound of the left upper quadrant to further evaluate. Most likely benign. Orders: - US abdomen limited Follow up for as directed pending test results. SUBJECTIVE/OBJECTIVE: HPI - Chayo Acharya (: 1995) is a 28 y.o. female , Established patient, here for the evaluation of the following chief complaint(s): Chest Pain (Rib pain-started 1.5 yrs ago), Itching (Left rib cage under left breast ), and Nausea Feels it when moving a certain way, twisting, not painful, sometimes feels sore. Itching sometimes.Sometimes gets nausea with it (thinks it might be making her worried. Appetite ok. Feels more like something popping or moving States she notices it more at night when she is turning in bed. Feels fine otherwise Prior to Admission medications Medication Sig Start Date End Date Taking? Authorizing Provider albuterol 108 (90 Base) MCG/ACT inhaler Inhale 2 puffs every 6 hours as needed for wheezing or shortness of breath. 10/26/23 Yes THELMA Cadena CNP Vit-DSS-Fe Cbn-FA ( AD PO) Take by mouth. Yes Historical Provider, valACYclovir (Valtrex) 1 g tablet TAKE TWO TABLETS BY MOUTH TWICE DAILY FOR ONE DAY 07/07/24 Yes THELMA Cadena CNP sertraline (Zoloft) 25 MG tablet Take 1 tablet (25 mg) by mouth daily. 12/20/23 02/18/24 THELMA Zepeda CNP Review of Systems Constitutional: Negative for activity change, chills, fatigue and fever. Respiratory: Negative. Cardiovascular: Negative. Gastrointestinal: Negative. Left upper abdominal discomfort with certain movements Genitourinary: Negative. Negative for menstrual problem (irregular- sees ob/gy). Neurological: Negative. Psychiatric/Behavioral: Negative. Vitals: 07/30/24 1157 BP: 106/72 Pulse: 76 Resp: 20 Temp: 37 C (98.6 F) TempSrc: Infrared SpO2: 97% Weight: 157 lb 12.8 oz (71.6 kg) Physical Exam Constitutional: General: She is not in acute distress. Appearance: Normal appearance. She is not ill-appearing. HENT: Head: Normocephalic and atraumatic. Cardiovascular: Rate and Rhythm: Normal rate and regular rhythm. Pulmonary: Effort: Pulmonary effort is normal. Breath sounds: Normal breath sounds. Abdominal: General: Abdomen is flat. Bowel sounds are normal. Palpations: Abdomen is soft. Tenderness: There is abdominal tenderness. There is no guarding or rebound. Negative signs include Worthy's sign. Hernia: No hernia is present. Comments: No skin changes noted. Skin: General: Skin is warm and dry. Neurological: Mental Status: She is alert and oriented to person, place, and time. An electronic signature was used to authenticate this note. THELMA Diaz CNP 07/30/2024 1:15 PM documented in this [facility]11-13-2024 Instructions* Patient Instructions* THELMA Zepeda CNP - 07/30/2024 11:40 AM EST Please call Central Scheduling at [phone] to schedule your outpatient test documented in this [facility]04-25-2024 NotePap Smear Specimen AdequacyApril 2023 2:24pmComment.Satisfactory for evaluation. Endocervical and/or squamous metaplasticcells (endocervical component)are present.[facility] INTERFACED A#[id number] Riverside Methodist HospitalComment on above:Satisfactory for evaluation. Endocervical and/or squamous metaplasticcells (endocervical component)are present.12-20-2023 Evaluation + Plan note* Assessment & Plan Note - THELMA Zepeda CNP - 12/20/2023 7:31 AM EDTAssociated Problem(s): Viral URI with cough Most likely viral upper respiratory infection. Discussed with patient should continue to improve. Okay to continue NyQuil, start nasal saline spray. Salt water gargles for sore throat, Advised if not feeling much better by Sunday of next week to message into the office for consideration for antibiotic therapy for possible bacterial sinusitis at that time. [id number] Miscellaneous Notes* Assessment & Plan Note - THELMA Zepeda CNP - 12/20/2023 7:31 AM EDTAssociated Problem(s): Viral URI with cough Most likely viral upper respiratory infection. Discussed with patient should continue to improve. Okay to continue NyQuil, start nasal saline spray. Salt water gargles for sore throat, Advised if not feeling much better by Sunday of next week to message into the office for consideration for antibiotic therapy for possible bacterial sinusitis at that time. * Assessment & Plan Note - THELMA Zepeda CNP - 12/20/2023 7:30 AM EDTAssociated Problem(s): Anxiety and depression Patient denies any suicidal or homicidal ideation. States she would like to restart her sertraline 25 mg daily as this was helpful in the past. We will restart the medication and have her follow-up in the office in 4 to 8 weeks * Assessment & Plan Note - THELMA Zepeda CNP - 12/20/2023 7:30 AM EDTAssociated Problem(s): Other fatigue Patient reports ongoing fatigue over the last month or 2. Possibly secondary to depression. Howeverwould like patient to get her labs completed previously ordered CBC, CMP, I will add TSH to check thyroid functioning. We will restart her sertraline and have her follow-up in office in 4 to 8 weeks documented in this [facility]04-04-2024 Evaluation + Plan note* Assessment & Plan Note - THELMA Zepeda CNP - 12/20/2023 7:30 AM EDTAssociated Problem(s): Anxiety and depression Patient denies any suicidal or homicidal ideation. States she would like to restart her sertraline 25 mg daily as this was helpful in the past. We will restart the medication and have her follow-up in the office in 4 to 8 weeks [id number] Evaluation + Plan note* Assessment & Plan Note - THELMA Zepeda CNP - 12/20/2023 7:30 AM EDTAssociated Problem(s): Other fatigue Patient reports ongoing fatigue over the last month or 2. Possibly secondary to depression. Howeverwould like patient to get her labs completed previously ordered CBC, CMP, I will add TSH to check thyroid functioning. We will restart her sertraline and have her follow-up in office in 4 to 8 weeks [facility] [id number] History of Present illness Narrative* THELMA Zepeda CNP - 12/20/2023 7:20 AM EDT Images from the original note were not included. 12/20/2023 Chayo Acharya (: 1995) is a 28 y.o. female , Established patient, here for evaluation ofthe following chief complaint(s): Sinus Problem and Fatigue Patient was identified and seen today via Telehealth by agreement and consent. I used the followingTelehealth technology: Audio and video capabilities. Patient location: Patient Location: Home. This patient encounter is appropriate and reasonable under the circumstances: too sick to leave home . The patient has been advised of the potential risks and limitations of this mode of treatment (including but not limited to the absence of in-person examination) and has agreed to be treated in a remote fashion in spite of them. Any and all of the patient's/patient's family's questions on this issue have been answered and I have made no promises or guarantees to the patient. The patient has alsobeen advised to contact this office for worsening conditions or problems, and seek emergency medical treatment and/or call 911 if the patient deems either necessary. The patient stated that they are currently in the state [facility]. If the patient is a minor, permission has been obtained by the parent or guardian for the patient to receive medical care at this visit. ASSESSMENT/PLAN: 1. Viral URI with cough Assessment & Plan: Most likely viral upper respiratory infection. Discussed with patient should continue to improve. Okay to continue NyQuil, start nasal saline spray. Salt water gargles for sore throat, Advised if not feeling much better by Sunday of next week to message into the office for consideration for antibiotic therapy for possible bacterial sinusitis at that time. 2. Other fatigue Assessment & Plan: Patient reports ongoing fatigue over the last month or 2. Possibly secondary to depression. Howeverwould like patient to get her labs completed previously ordered CBC, CMP, I will add TSH to check thyroid functioning. We will restart her sertraline and have her follow-up in office in 4 to 8 weeks Orders: - TSH 3. Anxiety and depression Assessment & Plan: Patient denies any suicidal or homicidal ideation. States she would like to restart her sertraline 25 mg daily as this was helpful in the past. We will restart the medication and have her follow-up in the office in 4 to 8 weeks Orders: - sertraline (Zoloft) 25 MG tablet; Take 1 tablet (25 mg) by mouth daily., Starting Elisabet 12/20/2023, Until 02/18/2024, Normal Reviewed and provided written patient education/instructions regarding diagnosis and management. Reviewed symptom management with non-pharmacological interventions and appropriate use of otc medications for relief of symptoms. Follow up for worsening or no improvement in symptoms. Follow up in about 1 month (around 01/19/2024), or if symptoms worsen or fail to improve. SUBJECTIVE/OBJECTIVE: [facility] - Chayo Acharya (: 1995) is a 28 y.o. female , Established patient, here for the evaluation of the following chief complaint(s): Sinus Problem and Fatigue Congestion started last week, then was better on Sunday so went to work, was sent home on Sunday d/t illness and has been home since. No fever or chills. Sore throat . Mild headache. Cough intermittent. Abdomen has been sore all over. No abdominal pain. No nausea or vomiting. No change in bowel habits. Reports her and her trying to get - recent home preg tests negative in the past week. Does not feel any better than yesterday. Has been taking nyquil at bedtime for her symptoms helps some. Fatigue-patient reports ongoing fatigue over the past couple of months and is wondering if she possibly is depressed. Reports going through a stressful situation with trying to conceive and also trying to adopt. States it has been very disappointing when her and her do not get picked up by parents. She states that she previously was on sertraline and that was helpful. Denies any suicidal or homicidal ideation. Was seen for her annual exam in November and has outstanding labs to get done which includes CBC, CMP,and lipid panel. Prior to Admission medications Medication Sig Start Date End Date Taking? Authorizing Provider albuterol 108 (90 Base) MCG/ACT inhaler Inhale 2 puffs every 6 hours as needed for wheezing or shortness of breath. 10/26/23 Yes THELMA Cadena CNP Vit-DSS-Fe Cbn-FA ( AD PO) Take by mouth. Yes Historical Provider, hydrOXYzine HCl (Atarax) 25 MG tablet Take 1 tablet (25 mg) by mouth Nightly as needed for anxiety (sleep). Patient not taking: Reported on 12/20/2023 11/30/23 THELMA Cadena CNP valACYclovir (Valtrex) 1 g tablet TAKE TWO TABLETS BY MOUTH TWICE DAILY FOR ONE DAY Patient not taking: Reported on 12/20/2023 07/06/23 THELMA Cadena CNP Review of Systems Constitutional: Positive for activity change, appetite change and fatigue. Negative for chills and fever. HENT: Positive for congestion, postnasal drip, sinus pressure, sinus pain and sore throat. Negativefor ear pain. Respiratory: Positive for cough. Negative for chest tightness, shortness of breath and wheezing. Cardiovascular: Negative for chest pain. Gastrointestinal: Negative for abdominal pain, constipation, diarrhea, nausea and vomiting. Reports abdominal wall soreness Genitourinary: Negative. Neurological: Positive for headaches (Intermittent). Negative for dizziness and light-headedness. Psychiatric/Behavioral: Positive for dysphoric mood. Negative for self-injury and suicidal ideas. There were no vitals filed for this visit. Physical Exam Constitutional: Appearance: Normal appearance. She is ill-appearing (Mild). HENT: Head: Normocephalic and atraumatic. Pulmonary: Effort: Pulmonary effort is normal. Comments: Speaking full sentences without difficulty, noted intermittent nonproductive cough Neurological: Mental Status: She is alert and oriented to person, place, and time. Psychiatric: Mood and Affect: Mood normal. Behavior: Behavior normal. Thought Content: Thought content normal. Judgment: Judgment normal. An electronic signature was used to authenticate this note. THELMA Zepeda CNP 12/20/2023 7:36 AM documented in this [facility]04-04-2024 Instructions* Patient Instructions* THELMA Zepeda CNP - 12/20/2023 7:20 AM EDT Images from the original note were not included. Patient Education Viral Upper Respiratory Infection Discharge Instructions, Adult About this topic You have an upper respiratory infection or URI. A URI can affect your nose, throat, ears, and sinuses. A virus is the cause of almost all URIs and antibiotics will not help you feel better more quickly. The common cold is an example of a viral URI. URIs are easy to spread from person to person, most often through coughing or sneezing. A URI will almost always get better in a week or two without any treatment. What care is needed at home? Ask your doctor what you need to do when you go home. Make sure you ask questions if you do not understand what the doctor says. If you smoke, try to quit. Your doctor or nurse can help. Drink lots of fluids like water, juice, or broth. This will help replace any fluids lost if you have a runny nose or fever. Warm tea or soup can help soothe a sore throat. If the air in your home feels dry, use a cool mist humidifier. This can help a stuffy nose and makeit easier to breathe. You can also use saline nose drops to relieve stuffiness. If you decide to take [id number] cough or cold medicines, follow the directions on the label carefully. Be sure you do not take more than 1 medicine that contains acetaminophen. Also, if you have a heart problem or high blood pressure, check with your doctor before you take any of these medicines. Wash your hands often. Cough or sneeze into a tissue or your elbow instead of your hands. This willhelp keep others healthy. What follow-up care is needed? Your doctor may ask you to make visits to the office to check on your progress. Be sure to keep these visits. What drugs may be needed? The doctor may order drugs to: Open up the tubes of your lungs Treat viral infection Relieve or stop coughing Help with pain from a sore throat Relieve runny and stuffy nose Provide oxygen Will physical activity be limited? You need to rest for a few days to let your body recover from the infection. What changes to diet are needed? Eat soft foods like soup if swallowing is too painful. What problems could happen? Asthma attack Sinus infections Lung problems like pneumonia and bronchitis Severe fluid loss. This is dehydration. What can be done to prevent this health problem? Wash your hands often with soap and water for at least 20 seconds, especially after coughing or sneezing. Alcohol-based hand sanitizers also work to kill the virus. If you are sick, cover your mouth and nose with tissue when you cough or sneeze. You can also coughinto your elbow. Throw away tissues in the trash and wash your hands after touching used tissues. Do not get too close (kissing, hugging) to people who are sick. Do not share towels or hankies with anyone who is sick. Clean commonly handled things like door handles, remotes, toys, and phones. Wipe them with a disinfectant. Stay away from crowded places. Cover your nose and mouth when you sneeze or cough. Take vitamin C to help build up your body's ability to fight disease. Get a flu shot each year. When do I need to call the doctor? You have trouble breathing when talking or sitting still. You have a fever of 100.4 F (38 C) or higher for several days, chills, a very bad sore throat, or ear or sinus pain. You develop a new fever after several days of feeling the same or improving. You develop chest pain when you cough. You have a cough that lasts more than 10 days. You cough up blood, or the color of the mucus you cough up changes. Teach Back: Helping You Understand The Teach Back Method helps you understand the information we are giving you. After you talk with the staff, tell them in your own words what you learned. This helps to make sure the staff has described each thing clearly. It also helps to explain things that may have been confusing. Before going home, make sure you can do these: I can tell you about my condition. I can tell you what may help ease my signs. I can tell you what I will do if I have a fever, chills, breathing very fast, or trouble breathing. Where can I learn more? [employer] https://www.lung.org/blog/lla-jjh-ccavxuak-with-a-cold [employer] https://www.lung.org/vvbx-jlnbik-pyuocnuc/lzzm-pyjrosj-jftrtb/influenza/facts-ab xih-kgf-quuxru-cold NHS Choices https://www.nhs.uk/conditions/yjqyvdgcutw-pbbrq-vabzcjwek/ UpToDate https://www.SpotOnWay[employer]/contents/qjf-whkhzu-zmkj-aa-ycgvkw-hpilel-the-basics Last Reviewed Date 2021-02-22 Consumer Information Use and Disclaimer This generalized information is a limited summary of diagnosis, treatment, and/or medication information. It is not meant to be comprehensive and should be used as a tool to help the user understand and/or assess potential diagnostic and treatment options. It does NOT include all information about conditions, treatments, medications, side effects, or risks that may apply to a specific patient. Itis not intended to be medical advice or a substitute for the medical advice, diagnosis, or treatment of a health care provider based on the health care provider's examination and assessment of a patient s specific and unique circumstances. Patients must speak with a health care provider for complete information about their health, medical questions, and treatment options, including any risks or benefits regarding use of medications. This information does not endorse any treatments or medications as safe, effective, or approved for treating a specific patient. [employer] and its affiliatesdisclaim any warranty or liability relating to this information or the use thereof. The use of thisinformation is governed by the Terms of Use, available at https://www.[employer].com/en/know/njhsvcyu-wnoychfkxvvlv-vwngw Copyright Copyright 2021 [employer] and its affiliates and/or licensors. All rights reserved. documented in this encounterSUniversity Hospitals Portage Medical [id number] Telephone encounter Note* Telephone Encounter - Parris Jones RN - 12/19/2023 9:43 AM EDT S: pt calling [facility] d/t nasal congestion, fatigue B: Symptoms started sunday A: has been having fatigue for 2 weeks. States it started before any of her cold symptoms. On Sunday started having nasal congestion, sore throat, dry cough, intermittent headache soreness in abdominal area. Called off yesterday and today R: Insurance verified. VV scheduled with Yesenia Gonzalez on 12/19 at 7:20 instructed on visit. advised to have medication list with her. Discussed fluids, salt water gargle, humidifier, otc cold medications for symptoms. . Pt advised to call back with worsening of symptoms, concern or questions. Pt verbalized understanding. Reason for Disposition MODERATE weakness (i.e., interferes with work, school, normal activities) and persists > 3 days Protocols used: Weakness (Generalized) and Ketrmgs-AYWKB-YA [id number] Miscellaneous Notes* Telephone Encounter - Parris Jones RN - 12/19/2023 9:43 AM EDT S: pt calling [facility] d/t nasal congestion, fatigue B: Symptoms started sunday A: has been having fatigue for 2 weeks. States it started before any of her cold symptoms. On Sunday started having nasal congestion, sore throat, dry cough, intermittent headache soreness in abdominal area. Called off yesterday and today R: Insurance verified. VV scheduled with Yesenia Gonzalez on 12/19 at 7:20 instructed on visit. advised to have medication list with her. Discussed fluids, salt water gargle, humidifier, otc cold medications for symptoms. . Pt advised to call back with worsening of symptoms, concern or questions. Pt verbalized understanding. Reason for Disposition MODERATE weakness (i.e., interferes with work, school, normal activities) and persists > 3 days Protocols used: Weakness (Generalized) and [id number] documented in this [place] [id number] History of Present illness Narrative* Rachana Gu, THELMA - CARBURETOR SPECIALIST - 11/30/2023 8:00 AM EDT Images from the original note were not included. [facility][1] [address] [facility] [address] Dept: [phone] Dept Loc: [phone] HPI: Chayo Acharya is a 28 y.o. female who presents today for her medical conditions/complaints as noted below. Chayo Acharya is c/o of Annual Exam, Health Maintenance (Hep B- declines/HIV screen-declines/Tdap- declines/Flu- declines/3rd Covid- not done /Pap- [facility] [place] ), and Blood Work HPI- Chayo presents today for her annual physical and would like to have blood work drawn at [facility] at a later date. 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 Will use once every 3-4 months. Depression/Anxiety: Feels symptoms are well controlled overall. Would like some PRN Hydroxyzine to use on nights her anxiety is worse and cannot fall asleep. IBS-C&D: Feels symptoms are well controlled. Not currently following up with GI and does not need medication. Exercise Induced Bronchospasm: Will use her albuterol inhaler before exercising and this works wellfor her. Health Maintenance: Declines to be vaccinated for Hep B. Declines screening for HIV. States she hada Tdap vaccination through her work- will fax over immunization record. Had a flu vaccination in July 2023. Vaccinated for COVID-19 x2 with most recent dose on 07/30/21- declines additional doses. Pap smear: 09/01/20-due to follow up with her Ruffling Machine Operator. See ROS for additional information. Past Medical History: Diagnosis Date Acute non-recurrent maxillary sinusitis Allergic rhinitis, cause unspecified Anxiety Asthma Depression Dysuria Exercise induced bronchospasm H/O cold sores Irregular menstrual bleeding Irritable bowel syndrome Other acne Other malaise and fatigue Urinary frequency Past Surgical History: Procedure Laterality Date WISDOM TOOTH EXTRACTION Family History Problem Relation Name Age of Onset Ovarian cancer Paternal Grandmother 80s Colon cancer Neg Hx Breast cancer Neg Hx Heart disease Father Uterine cancer Neg Hx Social History Tobacco Use Smoking status: Never Smokeless tobacco: Never Substance Use Topics Alcohol use: Yes Comment: socially Current Outpatient Medications Medication Sig Dispense Refill albuterol 108 (90 Base) MCG/ACT inhaler Inhale 2 puffs every 6 hours as needed for wheezing or shortness of breath. 18 g 1 Vit-DSS-Fe Cbn-FA ( AD PO) Take by mouth. valACYclovir (Valtrex) 1 g tablet TAKE TWO TABLETS BY MOUTH TWICE DAILY FOR ONE DAY 12 tablet 1 hydrOXYzine HCl (Atarax) 25 MG tablet Take 1 tablet (25 mg) by mouth Nightly as needed for anxiety (sleep). 30 tablet 1 No current facility-administered medications for this visit. No Known Allergies Health Maintenance Topic Date Due DTaP/Tdap/Td Vaccines (2 - Td or Tdap) 10/24/2022 Depresssion Monitoring 02/23/2023 Pap Smear 09/01/2023 Hepatitis B Vaccines (1 of 3 - 3-dose series) 11/29/2024 (Originally 1995) HIV Screening 11/29/2024 (Originally 1995) COVID-19 Vaccine (3 - 2022-24 season) 2024 (Originally 05/18/2023) Zoster Vaccines (1 of 2) 2044 RSV Immunization aged 60 or older (1 - 1-dose 60+ series) 2054 MMR Vaccines Completed Influenza Vaccine Completed Hepatitis C Screening Completed RSV Immunization under 20 Months Aged Out HIB Vaccines Aged Out IPV Vaccines Aged Out Hepatitis A Vaccines Aged Out Meningococcal Vaccine Aged Out Rotavirus Vaccines Aged Out HPV Vaccines Aged Out Pneumococcal Vaccine: Pediatrics (0 to 5 Years) and At-Risk Patients (6 to 64 Years) Aged Out Varicella Vaccines Discontinued Subjective: Review of Systems Constitutional: Negative for chills and fever. HENT: Negative for hearing loss and trouble swallowing. Eyes: Negative for pain and visual disturbance. Respiratory: Negative for cough, chest tightness, shortness of breath and wheezing. Cardiovascular: Negative for chest pain, palpitations and leg swelling. Gastrointestinal: Negative for abdominal distention, abdominal pain, blood in stool, constipation and diarrhea. Endocrine: Negative for polydipsia, polyphagia and polyuria. Genitourinary: Negative for dysuria and hematuria. Musculoskeletal: Negative for arthralgias and myalgias. Skin: Negative for color change, pallor, rash and wound. Neurological: Negative for dizziness, syncope, weakness and headaches. Hematological: Does not bruise/bleed easily. Psychiatric/Behavioral: Negative for dysphoric mood. The patient is not nervous/anxious. Objective: BP 112/76 Pulse 62 Ht 5' 3 (1.6 m) Wt 151 lb 9.6 oz (68.8 kg) SpO2 99% BMI 26.85 kg/m Last 3 PERLA-7 Scores 11/30/2023 0800 PERLA-7 Total Score: 0 Last 3 PHQ-2 Scores 11/30/2023 0823 Patient Health Questionnaire-2 Score: 0 Last 3 PHQ-9 Scores 11/30/2023 08 Patient Health Questionnaire-9 Score: 2 Physical Exam Constitutional: Oriented to person, place, and time. Appears well-developed and well-nourished. No distress. HENT: Head: Normocephalic and atraumatic. Right Ear: External ear normal. Left Ear: External ear normal. Nose: Nose normal. Mouth/Throat: Oropharynx is clear and moist. No oropharyngeal exudate. Bilateral TM's pearly smith with a good cone of light bilaterally. Eyes: Conjunctivae and EOM are normal. Pupils are equal, round, and reactive to light. Right eye exhibits no discharge. Left eye exhibits no discharge. Neck: Normal range of motion. Neck supple. No thyromegaly present. Cardiovascular: Normal rate, regular rhythm, normal heart sounds and intact distal pulses. Exam reveals no friction rub. No murmur heard. Carotid upstrokes brisk and without bruits bilaterally. Pulmonary/Chest: Effort normal and breath sounds normal. No respiratory distress. No wheezes. No rales. Abdominal: Soft. Bowel sounds are normal. No distension and no mass. There is no hepatosplenomegaly. There is no tenderness. Musculoskeletal: Normal range of motion. No edema, tenderness or deformity. Strength 5/5 with flexion and extension of extremities x4. Lymphadenopathy: No cervical adenopathy. Neurological: Alert and oriented to person, place, and time. Coordination normal. Skin: Skin is warm and dry. No rash noted. No erythema. No pallor. Psychiatric: Normal mood and affect. Behavior is normal. Judgment and thought content normal. Assessment and Plan: 1. Well adult exam - Encouraged a healthy diet low in cholesterol and saturated fats. - Encouraged regular exercise. 2. Recurrent cold sores - Comprehensive metabolic panel - CBC - Stable with PRN Valtrex. Will continue current treatment plan. 3. Moderate episode of recurrent major depressive disorder (HCC) - Comprehensive metabolic panel - CBC - Symptoms well controlled. 4. Anxiety - Comprehensive metabolic panel - CBC - hydrOXYzine HCl (Atarax) 25 MG tablet; Take 1 tablet (25 mg) by mouth Nightly as needed for anxiety (sleep)., Starting Sun11/30/2023, Normal - Stable. Will have her use Hydroxyzine as needed for her anxiety and sleep. 5. Irritable bowel syndrome with both constipation and diarrhea - Comprehensive metabolic panel - CBC - Symptoms well controlled. 6. Exercise-induced bronchospasm - Comprehensive metabolic panel - CBC - Stable with PRN Albuterol. Will continue current treatment plan. 7. Screening for diabetes mellitus - Comprehensive metabolic panel - Will notify of blood work results. 8. Screening for lipoid disorders - Lipid panel - Will notify of blood work results. Chayo received counseling on the following healthy behaviors: continue current medications Discussed use, benefit, and side effects of prescribed medications. Barriers to medication compliance addressed. All patient questions answered. Pt voiced understanding. Follow Up: Follow up in about 1 year (around 11/29/2024) for annual physical. Orders Placed This Encounter Procedures Comprehensive metabolic panel Standing Status: Future Number of Occurrences: 1 Standing Expiration Date: 11/29/2024 Lipid panel Standing Status: Future Number of Occurrences: 1 Standing Expiration Date: 11/29/2024 Order Specific Question: Has the patient been fasting for 8 hours or more? Answer: Yes CBC Standing Status: Future Number of Occurrences: 1 Standing Expiration Date: 11/29/2024 THELMA Cadena CNP 11/30/2023 8:31 AM * Ayde Eduardo MA - 11/30/2023 8:00 AM EDT Patient verified by last name and . documented in this [facility]02-09-2024 Telephone encounter Note* Telephone Encounter - Sury Myers - 10/26/2023 12:34 PM EST Scheduled for 11-30-23 with Rachana Gu at 8am [place] [id number] Miscellaneous Notes* Telephone Encounter - Sury Myers - 10/26/2023 12:34 PM EST Scheduled for 11-30-23 with Rachana Gu at 8am * Telephone Encounter - THELMA Cadena CNP - 10/26/2023 9:50 AM EST Rx sent. Due for annual physical- please schedule. * Telephone Encounter - Dawna Delgado MA - 10/26/2023 8:42 AM EST Prescription Request: Last medication check: 02/01/22 Last physical exam: 08/02/22 Next scheduled appointment: none Last date of refill on this medication I don't see that we prescribed this in the last 2 yrs documented in this [place] [id number] Telephone encounter Note* Telephone Encounter - THELMA Cadena CNP - 10/26/2023 9:50 AM EST Rx sent. Due for annual physical- please schedule. [place] [id number] Telephone encounter Note* Telephone Encounter - Dawna Delgado MA - 10/26/2023 8:42 AM EST Prescription Request: Last medication check: 02/01/22 Last physical exam: 08/02/22 Next scheduled appointment: none Last date of refill on this medication I don't see that we prescribed this in the last 2 yrs [id number] Telephone encounter Note* Telephone Encounter - THELMA Cadena CNP - 07/06/2023 3:24 PM EDT Rx sent. Due for annual physical in July- please schedule. Thank you. [facility] [id number] Miscellaneous Notes* Telephone Encounter - THELMA Cadena CNP - 07/06/2023 3:24 PM EDT Rx sent. Due for annual physical in July- please schedule. Thank you. * Telephone Encounter - Laz Singh LPN - 07/06/2023 2:45 PM EDT Prescription Request: Last medication check: 12/07/21 Last physical exam: 08/02/22 Next scheduled appointment:not found Last date of refill on this medication 11/29/22 #12 1 refill documented in this encounterSUniversity Hospitals Portage Medical [id number] Telephone encounter Note* Telephone Encounter - Laz Singh LPN - 07/06/2023 2:45 PM EDT Prescription Request: Last medication check: 12/07/21 Last physical exam: 08/02/22 Next scheduled appointment:not found Last date of refill on this medication 11/29/22 #12 1 refill [id number] Evaluation + Plan note* Assessment & Plan Note - THELMA Zepeda CNP - 01/11/2023 1:10 PM EDTAssociated Problem(s): Acute non-recurrent maxillary sinusitis Will treat with antibiotics for bacterial sinusitis due to severity of symptoms and length of illness >7 days, not improving. Reviewed and provided written patient education/instructions regarding diagnosis and management. Reviewed symptom management with non-pharmacological interventions and appropriate use of otc medications for relief of symptoms. Follow up for worsening or no improvement in symptoms. [place] [id number] Miscellaneous Notes* Assessment & Plan Note - THELMA Zepeda CNP - 01/11/2023 1:10 PM EDTAssociated Problem(s): Acute non-recurrent maxillary sinusitis Will treat with antibiotics for bacterial sinusitis due to severity of symptoms and length of illness >7 days, not improving. Reviewed and provided written patient education/instructions regarding diagnosis and management. Reviewed symptom management with non-pharmacological interventions and appropriate use of otc medications for relief of symptoms. Follow up for worsening or no improvement in symptoms. documented in this encounterSUniversity Hospitals Portage Medical [id number] History of Present illness Narrative* THELMA Zepeda CNP - 01/11/2023 1:00 PM EDT Images from the original note were not included. 01/11/2023 Chayo Acharya (: 1995) is a 27 y.o. female , Established patient, here for evaluation ofthe following chief complaint(s): Sinus Problem Patient was seen today via Telehealth by agreement and consent in light of the current COVID-19 pandemic. I used the following Telehealth technology: Audio and video capabilities Patient location: Home. This patient encounter is appropriate and reasonable under the circumstances given the patient'sparticular presentation at this time. The patient has been advised of the potential risks and limitations of this mode of treatment (including but not limited to the absence of in-person examination)and has agreed to be treated in a remote fashion in spite of them. Any and all of the patient's/patient's family's questions on this issue have been answered and I have made no promises or guaranteesto the patient. The patient has also been advised to contact this office for worsening conditions or problems, and seek emergency medical treatment and/or call 911 if the patient deems either necessary. The patient stated that they are [facility] in the [facility]. If the patient is a minor, permission has been obtained by the parent or guardian for the patient to receive medical care at this visit. ASSESSMENT/PLAN: 1. Acute non-recurrent maxillary sinusitis Assessment & Plan: Will treat with antibiotics for bacterial sinusitis due to severity of symptoms and length of illness >7 days, not improving. Reviewed and provided written patient education/instructions regarding diagnosis and management. Reviewed symptom management with non-pharmacological interventions and appropriate use of otc medications for relief of symptoms. Follow up for worsening or no improvement in symptoms. Orders: - amoxicillin-clavulanate (Augmentin) 875-125 MG tablet; Take 1 tablet by mouth 2 times daily for 7days., Starting Elisabet 01/11/2023, Until Elisabet 01/18/2023, Normal Follow up if symptoms worsen or fail to improve. SUBJECTIVE/OBJECTIVE: BEN - Chayo Acharya (: 1995) is a 27 y.o. female , Established patient, here for the evaluation of the following chief complaint(s): Sinus Problem Sx started about 2 weeks ago, had sore throat, cough, congestion, went to now clinic about 1 week later -neg strep, neg covid. Did complete medrol dose hitesh yesterday. Congestion has not improved much. Pain and pressure right cheek, Has been taking sudafed and nyquil at night time. No fever or chills. No shortness of breath or chest pain. Feels somewhat better than initially but symptoms are not getting much better over the past week. Prior to Admission medications Medication Sig Start Date End Date Taking? Authorizing Provider albuterol 108 (90 Base) MCG/ACT inhaler 03/10/22 Historical Provider, Vit-DSS-Fe Cbn-FA ( AD PO) Take by mouth. Historical Provider, valACYclovir (Valtrex) 1 g tablet TAKE TWO TABLETS BY MOUTH TWICE DAILY FOR ONE DAY 11/29/22 THELMA Byrd CNP Health Maintenance Due Topic Date Due Hepatitis B Vaccines (1 of 3 - 3-dose series) Never done DTaP/Tdap/Td Vaccines (2 - Td or Tdap) 10/24/2022 Review of Systems Constitutional: Negative for chills, fatigue and fever. HENT: Positive for congestion, postnasal drip, sinus pressure and sinus pain. Negative for sore throat and trouble swallowing. Respiratory: Negative for cough and shortness of breath. Cardiovascular: Negative for chest pain. Gastrointestinal: Negative. Neurological: Positive for headaches. There were no vitals filed for this visit. Physical Exam Constitutional: Appearance: Normal appearance. She is not ill-appearing. HENT: Head: Normocephalic and atraumatic. Pulmonary: Effort: Pulmonary effort is normal. Comments: Speaking full sentences without difficulty, sounds congested. Neurological: Mental Status: She is alert and oriented to person, place, and time. Psychiatric: Mood and Affect: Mood normal. Behavior: Behavior normal. An electronic signature was used to authenticate this note. THELMA Zepeda CNP 01/11/2023 12:55 PM documented in this encounterSUniversity Hospitals Portage Medical [id number] Telephone encounter Note* Telephone Encounter - THELMA Cadena CNP - 11/29/2022 8:06 AM EDT Rx sent. [id number] Miscellaneous Notes* Telephone Encounter - THELMA Cadena CNP - 11/29/2022 8:06 AM EDT Rx sent. * Telephone Encounter - Farrah Tatum MA - 11/29/2022 7:27 AM EDT Prescription Request: Last medication check: 12/07/21 Last physical exam: 08/02/22 Last completed appointment: 08/30/22 Next scheduled appointment: none Last date of refill on this medication: 07/31/22 documented in this [place] [id number] Telephone encounter Note* Telephone Encounter - Farrah Tatum MA - 11/29/2022 7:27 AM EDT Prescription Request: Last medication check: 12/07/21 Last physical exam: 08/02/22 Last completed appointment: 08/30/22 Next scheduled appointment: none Last date of refill on this medication: 07/31/22 [facility] complaint+Reason for visit Narrative* Chief Complaint 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 Reason for Visit Anovulation Infertility [facility] Work Phone: Chihe complaint+Reason for visit Narrative* Chief Complaint SORE THROAT/SHAKEY/S KIN HURTS/FOGGY/CONFUSION COVID-19/[facility] employee EORDER Reason for Visit Acute upper respirat ory infection Contact with or suspected exposure to other viral communicable disease [facility] Work Phone: Evaluation note* Diagnosis Onset Date Resolution Status Anovulation acute Infertility acute [facility] Work Phone: Evaluation noteNo assessment information available [facility] Work Phone: Evaluation note* Diagnosis Onset Date Resolution Status Acute upper respiratory infection acute Contact with or suspected ex posure to other viral communicable disease acute [facility] Work Phone: Evaluation note* Diagnosis Acute non-recurrent maxillary sinusitis- Primary documented in this encounter [facility] note* Diagnosis Exercise-induced bronchospasm Exercise induced bronchospasm documented in this encounter [facility] note* Diagnosis Well adult exam- Primary Routine general medical examination at a [facility] care facility Recurrent cold sores Herpes simplex without mention of complication Moderate episode of recurrent major depressive disorder (HCC) Anxiety Anxiety state, unspecified Irritable bowel syndrome with both constipation and diarrhea Exercise-induced bronchospasm Exercise induced bronchospasm Screening for diabetes mellitus Screening for lipoid disorders documented in this encounter [facility]* Diagnosis Viral URI with cough- Primary Other fatigue Anxiety and depression documented in this encounter [facility]* Diagnosis Onset Date Resolution Status Infertility acute Irregular menses acute Routine gynecological examination noneactive [facility] Work Phone: Evaluation note* Diagnosis Viral URI with cough- Primary Other fatigue Anxiety and depression Left upper quadrant abdominal pain- Primary documented in this encounter [facility] ShareTheEvaluation note* Diagnosis Viral URI with cough- Primary Other fatigue Anxiety and depression Well adult exam- Primary Routine general medical examination at a the [facility] care facility Recurrent cold sores Herpes simplex without mention of complication Anxiety and depression Irritable bowel syndrome with both constipation and diarrhea Exercise-induced bronchospasm Exercise induced bronchospasm Screening for diabetes mellitus Screening for lipoid disorders Screening for deficiency anemia Screening for other and unspecified deficiency anemia documented in this encounter [facility] ShareTheEvaluation note* Diagnosis Viral URI with cough- Primary Other fatigue Anxiety and depression Hyperlipidemia, unspecified hyperlipidemia type- Primary [facility] Work Phone: Hospital Discharge instructionsWBethesda North Hospital Work Phone: Hospital Discharge instructionsAdditional Instructions I am not sure what is causing your chest pain. Your testing is normal and rule out heart attacks or blood clots. I recommend you follow-up with your primary care doctor. If you have new or worsening symptoms come back to the ER.[facility] Work Phone: Instructions* Attachments The following attachments cannot be sent through Care Everywhere. * Sinusitis Discharge Instructions, Adult ([place]) documented in this [facility] for [facility] (narrative)No reason for referral information availableWBethesda North Hospital Work Phone: Summary Purpose Family History No Family History Records Found Relationship Condition Age at Onset Recorded Date/T adia grandmother Malignant neoplasm Unknown grandfather Myocardial infarction Unknown father Myocardial infarction Unknown grandfather Diabetes mellitus Unknown Advance Directives No Advanced Directives Records Found Advance Directive Response Recorded Date/ Time Do you have a Healthcare Power of Denture Laboratory Technician? 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) January 22, 2025 9:22am PELVIC PAIN January 28, 2025 8:55a m Reason for Visit Admit Date Infertility January 22, 2025 9:22am Pelvic pain January 22, 2025 9:22am Encounter for routine gynecological exam ination January 22, 2025 9:22am Chief Complaint Admit Date 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) January 22, 2025 9:22am PELVIC PAIN January 28, 2025 8:55a m CHEST PAIN April 30, 2025 11 :44am Additional Source Comments INFORMATION SOURCE (unrecogn ized section and content) DATE CREATED AUTHOR 03/13/2018 [facility] DATE CREATED AUTHOR AUTHOR'S ORGANIZ ATION 12/29/2021 [facility] DATE CREATED AUTHOR AUTHOR'S ORGANIZ ATION 01/05/2025 [facility] DATE CREATED AUTHOR AUTHOR'S ORGANIZ ATION 05/06/2025 [facility] Goals (unrecognized section and content) Goals may be documented in a n alternate sectionGoals may be documented in an alternate sectionGoals may be documented in an alternate sectionGoals may be documented in an alternate sectionGoals may be documented in an alternate sectionGoals may be documented in an alternate sectionGoals may be documented in an alternate sectionGoals may be documented in an alternate sectionGoals may be documented in an alternate sectionGoals may be documented in an alternate section Care Teams (unrecognized sec tion and content) Team Status: Active Member Role Status Dates RACHANA GU Family Provider Active Rachana Gu REGISTRY NURSE, REGISTRY NURSE-C Primary Care Provider Active Team Status: Inactive Member Role Status Dates Rachana Gu REGISTRY NURSE, REGISTRY NURSE-C Primary Care Provider, Referring Provider Active Jasiel Carter PA, PA Attending Provider Active Team Status: Inactive Member Role Status Dates Rachana Gu REGISTRY NURSE, REGISTRY NURSE-C Primary Care Provider Active Kathrin Devine REGISTRY NURSE, REGISTRY NURSE-C Attending Provider, Referring Provider Active [employer] Console Monitor Relationship Specialty Start Date End Date aMrk Nuñez MD [address] [place] [address] PCP - General 07/10/18 [employer] Console Monitor Relationship Specialty Start Date End Date Mark Nuñez MD [address] [place] [address] PCP - General 07/10/18 [employer] Television Console Monitor Relationship Specialty Start Date End Date Mark Nuñez MD [address] [place] [address] PCP - General 07/10/18 [employer] Television Console Monitor Relationship Specialty Start Date End Date Mark Nuñez MD [address] [place] [address] PCP - General 07/10/18 [employer] Television Console Monitor Relationship Specialty Start Date End Date Mark Nuñez MD [address] [place] [address] PCP - General 07/10/18 [employer] Television Console Monitor Relationship Specialty Start Date End Date Mark Nuñez MD [address] [place] [address] PCP - General 07/10/18 Team Status: Inactive Member Role Status Dates Rachana Gu REGISTRY NURSE, REGISTRY NURSE-C Primary Care Provid er, Attending Provider, Referring Provider Active Team Status: Inactive Member Role Status Dates Rachana Gu REGISTRY NURSE, REGISTRY NURSE-C Primary Care Provider, Referring Provider Active Kathrin Devine REGISTRY NURSE, REGISTRY NURSE-C Attending Provider Active Team Status: Inactive Member Role Status Dates Rachana Gu REGISTRY NURSE, REGISTRY NURSE-C Primary Care Provider Active Kathrin Devine REGISTRY NURSE, REGISTRY NURSE-C Attending Provider Active [employer] Television Console Monitor Relationship Specialty Start Date End Date Mark Nuñez MD [address] [place] [id number] PCP - General 07/10/18 [employer] Console Monitor Relationship Specialty Start Date End Date Mark Nuñez MD [address] [place] [id number] PCP - General 07/10/18 [employer] Console Monitor Relationship Specialty Start Date End Date Mark Nuñez MD [address] [place] [id number] PCP - General 07/10/18 [employer] Console Monitor Relationship Specialty Start Date End Date Mark Nuñez MD [address] [place] [id number] PCP - General 07/10/18 Team Status: Inactive Member Role Status Dates Rachana Gu REGISTRY NURSE, REGISTRY NURSE-C Primary Care Provider Active Start: August 18, 2024 End: August 18, 2024 Deyanira Gonzalez , REGISTRY NURSE-C Attending Provider Active Start: August 18, 2024 End: August 18, 2024 Deyanira Gonzalez REGISTRY NURSE-C Referring Provider Active Start: August 18, 2024 End: August 18, 2024 Team Status: Inactive Member Role Status Dates Rachana Gu REGISTRY NURSE, REGISTRY NURSE-C Primary Care Provider Active Start: November 12, 2024 End: November 12, 2024 Kathrin Devine REGISTRY NURSE, REGISTRY NURSE-C Attending Provider Active Start: November 12, 2024 End: November 12, 2024 Kathrin Devine REGISTRY NURSE, REGISTRY NURSE-C Referring Provider Active Start: November 12, 2024 End: November 12, 2024 Team Status: Active Member Role Status Dates Rachana Gu REGISTRY NURSE, REGISTRY NURSE-C Primary Care Provider Active Team Status: Inactive Member Role Status Dates Rachana Gu REGISTRY NURSE, REGISTRY NURSE-C Primary Care Provider Active Start: December 01, 2024 End: December 01, 2024 Rachana Gu REGISTRY NURSE, REGISTRY NURSE-C Attending Provider Active S tart: December 01, 2024 End: December 01, 2024 Rachana Gu REGISTRY NURSE, REGISTRY NURSE-C Referring Provider Active S tart: December 01, 2024 End: December 01, 2024 Team Status: Inactive Member Role Status Dates Rachana Gu REGISTRY NURSE, REGISTRY NURSE-C Referring Provider Active S tart: January 22, 2025 End: January 22, 2025 Kathrin Devine REGISTRY NURSE, REGISTRY NURSE-C Attending Provider Active Start: January 22, 2025 End: January 22, 2025 Team Status: Inactive Member Role Status Dates Kathrin Devine REGISTRY NURSE, REGISTRY NURSE-C Attending Provider Active Start: January 28, 2025 End: January 28, 2025 Kathrin Devine REGISTRY NURSE, REGISTRY NURSE-C Referring Provider Active Start: January 28, 2025 End: January 28, 2025 Rachana Gu REGISTRY NURSE, REGISTRY NURSE-C Primary Care Provider Active Start: January 28, 2025 End: January 28, 2025 Team Status: Active Member Role/Relationship Status Claritza Gu REGISTRY NURSE, REGISTRY NURSE-C Primary Care Provider Active Team Status: Inactive Member Role/Relationship Status Claritza Gu REGISTRY NURSE, REGISTRY NURSE-C Referring Provider Active S tart: January 22, 2025 End: January 22, 2025 Kathrin Devine REGISTRY NURSE, REGISTRY NURSE-C Attending Provider Active Start: January 22, 2025 End: January 22, 2025 Team Status: Inactive Member Role/Relationship Status Claritza Devine REGISTRY NURSE, REGISTRY NURSE-C Attending Provider Active Start: January 28, 2025 End: January 28, 2025 Kathrin Devine REGISTRY NURSE, REGISTRY NURSE-C Referring Provider Active Start: January 28, 2025 End: January 28, 2025 Rachana Gu REGISTRY NURSE, REGISTRY NURSE-C Primary Care Provider Active Start: January 28, 2025 End: January 28, 2025 Team Status: Inactive Member Role/Relationship Status Claritza Gu NP, REGISTRY NURSE-C Primary Care Provider Active Start: April 30, 2025 End: April 30, 2025 Dr. Doug Abrams MD Referring Provider Active Sta rt: April 30, 2025 End: April 30, 2025 Dr. Doug Abrams MD Emergency Provider Active Sta rt: April 30, 2025 End: April 30, 2025 Reason for Visit (unrecogniz ed section and content) Reason Comments Sinus Problem Reason Comments Med Refill Reason Onset Date Comments Med Refill 10/26/2023 Reason Comments Annual Exam Health Maintenance Hep B- declinesHIV s creen- declinesTdap- declinesFlu- [id number] Covid- not done Pap- [facility] [place] Blood Work Reason Onset Date Comments Fatigue 12/19/2023 Reason Comments Sinus Problem Fatigue Reason Comments Chest Pain Rib pain-started 1.5 yrs ago Itching Left rib cage under left breast Nausea Reason Onset Date Comments Other 09/08/2024 2nd attempt to s chedule Reason Comments Annual Exam Blood Work Health Maintenance Tdap- had one at [facility], thinks she had in 2021 Flu- declines 3rd Covid- not done Reason Onset Date Comments Results 12/05/2024 FOR RECORDS PERTAINING TO PATIENTS WHO ARE OR HAVE BEEN ENROLLED IN A CHEMICAL DEPENDENCY/SUBSTANCEABUSE PROGRAM, SOME INFORMATION MAY BE OMITTED. This clinical summary was aggregated from multiple sources. Caution should be exercised in using it in the provision of clinical care. This summary normalizes information from multiple sources, and as a consequence, information in this document may materially change the coding, format and clinical context of patient data. In addition, data may be omitted in some cases. CLINICAL DECISIONS SHOULD BE BASED ON THE PRIMARY CLINICAL RECORDS. [employer] provides no warranty or guarantee of the accuracy or completeness of information in this document.
[2025-06-06 09:25] LABS: Hematocrit 40.9 % (37-47); Hemoglobin 13.9 g/dL (12.0-15.0); Mean Corp Hgb Conc 34.0 g/dL (32-36); Mean Corpuscular Volume 89.9 fL (81-99); Mean Platelet Vol. 8.8 fl (6.2-12.0); Platelet Count 341 K/mm3 (150-450); RBC Distribution Width CV 12.6 % (11.6-14.6); RBC Distribution Width SD 41.5 fl (35.1-43.9); Red Blood Count 4.55 M/mm3 (4.2-5.4); White Blood Count 9.2 K/mm3 (4.4-11.0)
[2025-06-06 10:31] LABS: AST(SGOT) 18 U/L (<=31); Alanine Aminotransfer ALT/SGPT 13 U/L (<=34); Albumin, Serum 4.3 g/dL (3.5-5.0); Alkaline Phosphatase 44 U/L (35-104); Anion Gap 11 (5-15); BUN 13 mg/dL (4-19); BUN/Creat Ratio 15.6 RATIO (10-20); Calcium,Total 9.6 mg/dL (7.6-11.0); Carbon Dioxide 22.3 mmol/L (21.0-32.0); Chloride 105 mmol/L (98-108); Cholesterol 188 mg/dL (<=200); Globulin 2.9 g/dL (2.2-4.2); Glucose 90 mg/dL (70-99); Low Density Lipoprotein Calc. 128 mg/dL; Potassium 4.2 mmol/L (3.3-5.1); Triglycerides 47 mg/dL; Very Low Density Lipoprotein 9 mg/dL (5-40); cholesterol:hdl ratio screen 3.73
== END | disposition home or self-care (01) ==
LOC: LAB 08:28
PROVIDERS: PCP Registered Nurse; Referring Provider Registered Nurse; Visit Provider Registered Nurse
DX: Z13.220 Encounter for screening for lipoid disorders (principal); B00.1 Herpesviral vesicular dermatitis; F41.9 Anxiety disorder, unspecified; F32.A Depression, unspecified; K58.2 Mixed irritable bowel syndrome; J45.990 Exercise induced bronchospasm; Z13.1 Encounter for screening for diabetes mellitus; Z13.0 Encounter for screening for diseases of the blood and blood-forming organs and certain disorders involving the immune mechanism
CPT/HCPCS: 36415; 80053; 80061; 85027